=== PATIENT | male | born 1970 | race Caucasian/White ===

== ENCOUNTER 2016-08-01 16:25 | Emergency (ER) | payer BC ==
[~2016-08-01 16:25] MED LIST: ALPR1TAB2 PO; GABA-586 PO; GLIM2TAB2 PO; HYDR-2672 PO; LISI10TA2 PO; MELO-150 PO; METF500T4 PO; OMEP40CA5 PO; ONDA4TAB10 SL; OXYC-323 PO; TAPE75TA2 PO
[2016-08-01 16:42] VITALS: BP 144/105
[2016-08-01] MEDS ORDERED: HYDROCODONE/APAP 10/325 TABLET. PO ONE (17:00)
--- NOTE | 2016-08-01 17:51 | PHYS DOC ---
Past Medical History Past Medical History: Diabetes-Type II, Hypertension, [place] Past Surgical History: Other Additional Past Surgical Histo: RIGHT SHOULDER,CARDIAC CATH Alcohol Use: None Drug Use: None Adult General Chief Complaint Chief Complaint: ANKLE PROBLEM HPI HPI Patient is a 45 year old male who presents with right-sided pain after fall at 1300 today. He reports that he was taking down his [place] lights when he slipped on some water on the ground and fell. He was not on the roof or on a ladder, but standing on the ground when he fell. He landed on his right side. He denies hitting his head or loss of consciousness. He complains of pain in the right ankle, knee, elbow, and shoulder. He has had 2 surgeries on the right rotator cuff in the last 5 months. He was ambulatory just after the fall, but states that he is getting more sore as time progresses. He denies weakness or numbness. He does not have pain in the neck or back. His PCP is Dr. Keiko Diaz. Dr. Barrera is his orthopedic doctor. Review of Systems Review of Systems Constitutional: Denies fever or chills. [] Eyes: Denies change in visual acuity, redness, or eye pain. [] Respiratory: Denies cough or shortness of breath. [] Cardiovascular: Denies chest pain, palpitations or edema. [] GI: Denies abdominal pain, nausea, vomiting, bloody stools or diarrhea. [] : Denies dysuria, hematuria or urinary frequency. [] Musculoskeletal: Denies back pain or neck pain. Reports right ankle, right knee , right elbow, and right shoulder pain. Integument: Denies rash or skin lesions. Reports right elbow abrasion. Neurologic: Denies headache, focal weakness or sensory changes. Denies loss of consciousness. All systems reviewed and negative unless otherwise stated in the HPI. Current Medications Current Medications Current Medications Medications (Trade) Dose Ordered Sig/Darrius Start Time Stop Time Status Last Admin Dose Admin Acetaminophen/ Hydrocodone Bitart (Lortab 10/325) 1 tab 1X ONCE 08/01/16 17:00 08/01/16 17:04 DC 08/01/16 17:42 1 TAB Allergies Allergies Allergies Coded Allergies Type Severity Reaction Last Updated Verified acetaminophen Allergy Intermediate Rash 03/18/16 Yes oxycodone Allergy Intermediate Rash 03/18/16 Yes Physical Exam Physical Exam Constitutional: Well developed, well nourished, no acute distress, non-toxic appearance. [] HENT: Normocephalic, atraumatic, oropharynx moist. [] Eyes: PERRLA, EOMI, conjunctiva normal, no discharge. [] Neck: Normal range of motion, no midline tenderness, supple, no stridor. [] Cardiovascular: Heart rate regular rhythm, no murmur. [] Lungs & Thorax: Bilateral breath sounds clear to auscultation without wheezes, rales, or rhonchi. [] Skin: Warm, dry, no erythema, no rash. Right elbow abrasion. There are no other external signs of injury. Back: No midline tenderness, no CVA tenderness. [] Extremities: Right medial and lateral malleolus tenderness, ROM decreased due to pain, mild edema. 2+ DP and PT pulses. Less than 2 second capillary refill in the toes distally. Light touch sensation intact in the toes distally. There is no tenderness over the proximal fibula or the base of the fifth metatarsal. Extremities 2: Right knee medial and lateral tenderness, full extension with slightly decreased flexion, no edema. Neurovascularly intact distally. Extremities 3: Right olecranon tenderness, ROM intact, no edema. 2+ radial and ulnar pulses. Less than 2 second capillary refill in the fingers distally. Light touch sensation intact in the fingers distally. Abrasion over the olecranon. Extremities 4: Right shoulder tenderness, decreased abduction, no edema. Neurovascularly intact distally. Neurologic: Alert and oriented X 3, normal motor function, normal sensory function, no focal deficits noted. [] Psychologic: Affect normal, judgement normal, mood normal. [] Current Patient Data Vital Signs Vital Signs Date Time Temp Pulse Resp B/P Pulse Ox O2 Delivery O2 Flow Rate FiO2 08/01/16 16:42 98.6 115 22 95 Room Air 98.6 EKG EKG [] Radiology/Procedures Radiology/Procedures X-rays of the right shoulder, right elbow, and right knee reviewed and interpreted by myself with Dr. Lorenz. There are no acute fractures or dislocations. Three-view x-ray of the right ankle reviewed and interpreted by myself with Dr. Lorenz. There is a fracture of the distal fibula without significant displacement. Course & Med Decision Making Course & Med Decision Making Pertinent Labs and Imaging studies reviewed. (See chart for details) Patient presents after fall with right-sided pain. On exam, he is neurovascularly intact in all extremities without evidence of compartment syndrome. X-rays reveal fracture of the right distal fibula, otherwise normal. An Ortho-Glass stirrup splint was applied by meter/relay technician. He remains neurovascularly intact without evidence of compartment syndrome after splint application. He was provided with crutches for since with ambulation. He is given prescription for [place] upon discharge. He is instructed to follow-up with his orthopedic doctor, Dr. Barrera. Return precautions were discussed. He verbalizes understanding and agrees with plan. Dragon Disclaimer Dragon Disclaimer This electronic medical record was generated, in whole or in part, using a voice recognition dictation system. Departure Departure Impression: Primary Impression: Fibula fracture Disposition: 01 HOME, SELF-CARE Condition: STABLE Referrals: KEIKO DIAZ MD (PCP) ISAAC BARRERA II, MD Patient Instructions: Ankle Fracture, [id number], Crutch Use, [id number], Splint Care, [id number] Additional Instructions: The xray of your right ankle shows a break in the fibula bone. The other xrays were normal. You have been placed in a splint to immobilize your foot and ankle. Please keep the splint on and dry until follow up with your orthopedic doctor. Please use the provided crutches to keep weight off of the right leg. Please call your orthopedic doctor to schedule a follow up appointment. Please take the prescribed pain medication as directed. Do not drive or operate heavy machinery while taking pain medication. Return to the emergency department if you have severe pain, numbness in the toes or cold toes, or other new or concerning symptoms. Scripts Hydrocodone/Apap 10-325 ([place] 10-325 Tablet)1 Each Tablet1 Tab PO PRN Q6HRS PRN PAIN #20 TAB Ref 0 Prov:LAYTON LOOMIS 08/01/16 Problem Qualifiers Primary Impression: Fibula fracture Encounter type: initial encounter Fibula location: distal Fracture type: closed Fracture morphology: unspecified fracture morphology Laterality: right Qualified Code: S82.831A - Other fracture of upper and lower end of right fibula, initial encounter for closed fracture LAYTON LOOMIS Aug 01, 2016 17:51
[2016-08-01] MEDS ORDERED: HYDR-963 PO (18:48)
--- NOTE | 2016-08-02 08:43 | RAD ---
Right knee, 3 views, 08/01/2016: History: Fall, pain No fracture or dislocation is identified. The periarticular soft tissues are unremarkable. IMPRESSION: No acute right knee abnormality is detected. Right ankle, 3 views, 08/01/2016: There is an acute oblique fracture of the distal fibula without significant displacement or angulation at the fracture site. No other acute fracture is seen. There are mild degenerative changes at the ankle joint with spurring. There is cortical irregularity along the medial aspect of the articular surface of the talus, probably due to old trauma. There are ossifications involving a portion of the interosseous membrane at the tibiofibular syndesmosis compatible with old trauma. There is moderate soft tissue swelling particularly over the lateral malleolus. IMPRESSION: 1. Acute nondisplaced fracture of the distal fibula. 2. Cortical irregularity along the articular surface of the talus compatible with old trauma with secondary degenerative change at the ankle joint.
--- NOTE | 2016-08-02 08:44 | RAD ---
Right shoulder, 3 views, 08/01/2016: History: Fall, pain No acute fracture or dislocation is identified. There are sclerotic change at the greater tuberosity level compatible with degenerative change at rotator cuff insertion sites. The periarticular soft tissues are unremarkable. IMPRESSION: No acute bony abnormality is detected.
--- NOTE | 2016-08-02 08:46 | RAD ---
Right elbow, 3 views, 08/01/2016: History: Fall, pain No acute fracture or dislocation is identified. There is no radiographic evidence of a joint effusion. IMPRESSION: No acute right elbow abnormality is detected.
== END 2016-08-01 18:59 | disposition home or self-care (01) ==
LOC: ER 16:25
DX: S82.831A Other fracture of upper and lower end of right fibula, initial encounter for closed fracture (principal); E11.9 Type 2 diabetes mellitus without complications; I10 Essential (primary) hypertension; I25.2 Old myocardial infarction; Z88.5 Allergy status to narcotic agent; Z88.6 Allergy status to analgesic agent; W01.0XXA Fall on same level from slipping, tripping and stumbling without subsequent striking against object, initial encounter; Y93.89 Activity, other specified; Y92.89 Other specified places as the place of occurrence of the external cause; Y99.8 Other external cause status
CPT/HCPCS: 29515; 73030; 73080; 73562; 73610; 99284-25

== ENCOUNTER 2016-08-24 13:40 | Inpatient (IN) | payer BC ==
[~2016-08-24 13:40] MED LIST changes: +HYDR-963 PO
[2016-08-24] MEDS ORDERED: NITROGLYCERIN SUBLINGUAL 0.4 MG BOTTLE OF 25. SL PRN (14:00)
[2016-08-24] MEDS ORDERED: OXCARBAZEPINE 300 MG TABLET. PO STA (14:13)
[2016-08-24] MEDS ORDERED: IOHEXOL 300 MG/ML 75 ML VIAL IV ONE (14:15)
[2016-08-24] MEDS ORDERED: IV NORMAL SALINE 1000ML BAG 1,000 ML IV SCH (14:15)
[2016-08-24] MEDS ORDERED: CONTRAST GIVEN MC PRN (14:15)
[2016-08-24] MEDS ORDERED: ONDANSETRON PF 4 MG/2 ML VIAL. IV ONE (14:15)
[2016-08-24] MEDS ORDERED: ASPIRIN 81 MG TAB.CHEW PO ONE (14:15)
[2016-08-24 14:25] LABS: BASO # 0.1 x10^3/uL (0.0-0.2); BASO % 1 % (0-3); EOS % 2 % (0-3); HEMATOCRIT 44.8 % (39.0-53.0); HEMOGLOBIN 15.2 g/dL (13.0-17.5); LYMPH # 2.5 x10^3/uL (1.0-4.8); LYMPH % 33 % (24-48); MEAN CORPUSCULAR HEMOGLOBIN 31 pg (25-35); MEAN CORPUSCULAR HGB CONC 34 g/dL (31-37); MEAN CORPUSCULAR VOLUME 92 fL (79-100); MONO % 11 % (0-9); NEUT % 53 % (31-73); PLATELET COUNT 299 x10^3/uL (140-400); RED CELL DISTRIBUTION WIDTH 13.5 % (11.5-14.5); WHITE BLOOD COUNT 7.6 x10^3/uL (4.0-11.0)
[2016-08-24 14:38] LABS: ANION GAP 13 (6-14); BLOOD UREA NITROGEN 10 mg/dL (8-26); CALCIUM 8.9 mg/dL (8.5-10.1); CARBON DIOXIDE 26 mmol/L (21-32); CHLORIDE 99 mmol/L (98-107); CREATININE 0.9 mg/dL (0.7-1.3); GFR 90.4; GLUCOSE 168 mg/dL (70-99); POTASSIUM 4.4 mmol/L (3.5-5.1); SODIUM 138 mmol/L (136-145)
[2016-08-24 14:44] LABS: ALBUMIN 3.3 g/dL (3.4-5.0); ALK PHOS 103 U/L (46-116); ALT (SGPT) 45 U/L (16-63); AST (SGOT) 34 U/L (15-37); DIRECT BILIRUBIN < 0.1 mg/dL (0.0-0.2); MAGNESIUM 1.9 mg/dL (1.8-2.4); TOTAL BILIRUBIN 0.3 mg/dL (0.2-1.0); TOTAL PROTEIN 7.1 g/dL (6.4-8.2)
--- NOTE | 2016-08-24 14:44 | RAD ---
INDICATION: chest pain COMPARISON: None. FINDINGS: Single view of chest obtained. No focal airspace consolidation. Mediastinal contour is prominent in size No gross osseous destructive lesion. IMPRESSION: No focal airspace consolidation or edema. Cardiac silhouette mildly prominent
[2016-08-24 14:50] LABS: CKMB INDEX 1.3 % (0-4); CKMB MASS 0.9 ng/mL (0.0-3.6)
--- NOTE | 2016-08-24 14:51 | EKG ---
[facility] [address] [place] [address] Test Date: 2016-08-24 Test Time: 13:53:56 Pat Name: ANABEL VALDIVIA Department: Room: Gender: M Status Controller: : 1970 Requested By: QEUTA VANN Order Number: [id number] Reading MD: Measurements Intervals Remer Rate: 104 P: 47 VT: 96 QRS: -37 QRSD: 94 T: 68 QT: 346 QTc: 455 Interpretive Statements SINUS TACHYCARDIA LEFT ATRIAL ABNORMALITY ABNORMAL LEFT AXIS DEVIATION LEFT ANTERIOR FASCICULAR BLOCK QRS(T) CONTOUR ABNORMALITY CONSIDER ANTEROSEPTAL MYOCARDIAL DAMAGE T ABNORMALITY IN HIGH LATERAL LEADS RI6.01 Unconfirmed report No previous ECG available for comparison
--- NOTE | 2016-08-24 14:54 | PHYS DOC ---
Past Medical History Past Medical History: Diabetes-Type II, High Cholesterol, Hypertension, [place] Additional Past Medical Histor: PE Past Surgical History: Other Additional Past Surgical Histo: RIGHT SHOULDER,CARDIAC CATH Alcohol Use: None Drug Use: None Adult General Chief Complaint Chief Complaint: CHEST PAIN HPI HPI Patient is a 45 year old male who presents with chest pain and shortness of breath. Patient states that he has had symptoms are mainly over the past 2 weeks. The patient was at his primary physician's office when he started having worsening symptoms. Patient states that he is having substernal pain with associated shortness of breath and diaphoresis. The patient was sent to the emergency department for evaluation by Dr. Diaz. Patient states that his pain is mild persistent at this time. Patient states that he has had history of pulmonary embolism and was on Coumadin therapy several years ago. Patient states that approximately 2 years ago he was seen at [facility] and had a stress test and normal cardiac catheterization at that time. Patient has history of hypertension, diabetes mellitus type 2, and history of tobacco use. Patient also admits a family history of myocardial infarction. Patient has not had any fevers or cough associated with his symptoms. Patient had recent injury of right ankle secondary to a syncopal episode. Patient is currently in a walking boot. Review of Systems Review of Systems Constitutional: Diaphoresis, Denies fever or chills [] Eyes: Denies change in visual acuity, redness, or eye pain [] HENT: Denies nasal congestion or sore throat [] Respiratory: Shortness of breath [] Cardiovascular: Chest pain [] GI: Denies abdominal pain, nausea, vomiting, bloody stools or diarrhea [] : Denies dysuria or hematuria [] Musculoskeletal: Denies back pain or joint pain [] Integument: Denies rash or skin lesions [] Neurologic: Denies headache, focal weakness or sensory changes [] Current Medications Current Medications Current Medications Medications (Trade) Dose Ordered Sig/Darrius Start Time Stop Time Status Last Admin Dose Admin Aspirin (Children'S Aspirin) 324 mg 1X ONCE 08/24/16 14:15 08/24/16 14:16 DC 08/24/16 14:28 324 MG Fentanyl Citrate 50 mcg 50 mcg PRN Q15MIN PRN 08/24/16 14:00 08/24/16 17:21 DC 08/24/16 15:47 50 MCG Info (Do NOT chart on this entry -- for MONITORING) 1 each PRN DAILY PRN 08/24/16 14:15 08/25/16 14:49 DC Iohexol (Omnipaque 300 Mg/ml) 75 ml 1X ONCE 08/24/16 14:15 08/24/16 14:16 DC 08/24/16 14:52 75 ML Nitroglycerin (Nitrostat) 0.4 mg PRN Q5MIN PRN 08/24/16 14:00 08/25/16 13:59 DC Ondansetron HCl (Zofran) 4 mg 1X ONCE 08/24/16 14:15 08/24/16 14:16 DC 08/24/16 14:29 4 MG Oxcarbazepine (Trileptal) 450 mg 1X STAT 08/24/16 14:13 08/24/16 14:18 DC Sodium Chloride (Iv Sodium Chloride 0.9% 1000ml Bag) 1,000 ml @ 1,000 mls/hr Q1H 08/24/16 14:15 08/24/16 15:14 DC 08/24/16 14:31 1,000 MLS/HR Allergies Allergies Allergies Coded Allergies Type Severity Reaction Last Updated Verified oxycodone Allergy Intermediate Rash 03/18/16 Yes Physical Exam Physical Exam Constitutional: Alert, obese, afebrile, appears in mild discomfort. [] HENT: Normocephalic, atraumatic, bilateral external ears normal, oropharynx moist, no oral exudates, nose normal. [] Eyes: PERRLA, EOMI, conjunctiva normal, no discharge. [] Neck: Normal range of motion, no tenderness, supple, no stridor. [] Cardiovascular: Tachycardia, regular rhythm no murmur [] Lungs & Thorax: Bilateral breath sounds clear to auscultation [] Abdomen: Bowel sounds normal, soft, no tenderness, no masses, no pulsatile masses. [] Skin: Warm, dry, no erythema, no rash. [] Back: No tenderness, no CVA tenderness. [] Extremities: Walking boot on right lower extremity, no cyanosis, no edema, pulses 2+. [] Neurologic: Alert and oriented X 3, normal motor function, normal sensory function, no focal deficits noted. [] Current Patient Data Vital Signs Vital Signs Date Time Temp Pulse Resp B/P Pulse Ox O2 Delivery O2 Flow Rate FiO2 08/24/16 15:07 90 18 139/75 95 Room Air 08/24/16 13:49 97.5 97.5 Lab Values Laboratory Tests Test 08/24/16 14:13 White Blood Count 7.6x10^3/uL (4.0-11.0) Red Blood Count 4.90x10^6/uL (4.30-5.70) Hemoglobin 15.2g/dL (13.0-17.5) Hematocrit 44.8% (39.0-53.0) Mean Corpuscular Volume 92fL (79-100) Mean Corpuscular Hemoglobin 31pg (25-35) Mean Corpuscular Hemoglobin Concent 34g/dL (31-37) Red Cell Distribution Width 13.5% (11.5-14.5) Platelet Count 299x10^3/uL (140-400) Neutrophils (%) (Auto) 53% (31-73) Lymphocytes (%) (Auto) 33% (24-48) Monocytes (%) (Auto) 11% (0-9) H Eosinophils (%) (Auto) 2% (0-3) Basophils (%) (Auto) 1% (0-3) Neutrophils # (Auto) 4.1x10^3uL (1.8-7.7) Lymphocytes # (Auto) 2.5x10^3/uL (1.0-4.8) Monocytes # (Auto) 0.9x10^3/uL (0.0-1.1) Eosinophils # (Auto) 0.1x10^3/uL (0.0-0.7) Basophils # (Auto) 0.1x10^3/uL (0.0-0.2) D-Dimer (Annmarie) 0.35ug/mlFEU (0.00-0.50) Sodium Level 138mmol/L (136-145) Potassium Level 4.4mmol/L (3.5-5.1) Chloride Level 99mmol/L (98-107) Carbon Dioxide Level 26mmol/L (21-32) Anion Gap 13 (6-14) Blood Urea Nitrogen 10mg/dL (8-26) Creatinine 0.9mg/dL (0.7-1.3) Estimated GFR (Cockcroft-Gault) 90.4 Glucose Level 168mg/dL (70-99) H Calcium Level 8.9mg/dL (8.5-10.1) Magnesium Level 1.9mg/dL (1.8-2.4) Total Bilirubin 0.3mg/dL (0.2-1.0) Direct Bilirubin < 0.1mg/dL (0.0-0.2) Aspartate Amino Transferase (AST) 34U/L (15-37) Alanine Aminotransferase (ALT) 45U/L (16-63) Alkaline Phosphatase 103U/L (46-116) Creatine Kinase 67U/L (39-308) Creatine Kinase MB (Mass) 0.9ng/mL (0.0-3.6) Creatine Kinase MB Relative Index 1.3% (0-4) Troponin I Quantitative < 0.017ng/mL (0.000-0.055) NV-Ups-A-Type Natriuretic Peptide 52pg/mL (0-124) Total Protein 7.1g/dL (6.4-8.2) Albumin 3.3g/dL (3.4-5.0) L Laboratory Tests 08/24/16 14:13 Laboratory Tests 08/24/16 14:13 EKG EKG Interpreted by me: Heart rate 104, sinus tachycardia, normal intervals, leftward axis, no acute ST/T-wave abnormalities present [] Radiology/Procedures Radiology/Procedures [facility] [address] [place] [address] IMAGING REPORT Signed PATIENT: ANABEL VALDIVIA ACCOUNT: [id number] : 1970 LOCATION: ER AGE: 45 SEX: M EXAM STATUS: REG ER ORD. PHYSICIAN: QUETA VANN MD REASON: chest pain, shortness breath, history of PE PROCEDURE: CTA CHEST CTA of the chest with contrast, 08/24/2016: History: Chest pain, shortness of breath Multidetector CT imaging was performed following an IV bolus injection of iodinated contrast material. Multiplanar reconstructions were produced including coronal MIP images. No filling defects are seen in the main pulmonary arteries or lobar branches to suggest pulmonary emboli. The smaller pulmonary arteries are less well delineated due to technical factors including the patient's size, however, no definite pulmonary emboli are appreciated. The thoracic aorta is of normal caliber. Several minimal coronary artery calcifications are noted. There are calcified mediastinal and right hilar lymph nodes compatible with old granulomatous disease. No mediastinal or hilar adenopathy is evident. There is a cluster of granulomatous calcifications in the right parahilar region. There are a few scattered linear parenchymal scars. No significant pulmonary consolidation or mass is seen. There is no evidence of pleural fluid. IMPRESSION: No CT evidence of central pulmonary emboli. DICTATED and SIGNED BY: TAI PRICE MD DATE: 08/24/16 1542 CC: QUETA VANN MD; KEIKO DIAZ MD ~ [facility] [address] [place] [address] IMAGING REPORT Signed PATIENT: ANABEL VALDIVIA ACCOUNT: [id number] : 1970 LOCATION: ER AGE: 45 SEX: M EXAM STATUS: PRE ER ORD. PHYSICIAN: QUETA VANN MD REASON: chest pain PROCEDURE: PORTABLE CHEST 1V INDICATION: chest pain COMPARISON: None. FINDINGS: Single view of chest obtained. No focal airspace consolidation. Mediastinal contour is prominent in size No gross osseous destructive lesion. IMPRESSION: No focal airspace consolidation or edema. Cardiac silhouette mildly prominent DICTATED and SIGNED BY: HUGO DIAZ MD DATE: 08/24/16 1440 CC: QUETA VANN MD; KEIKO DIAZ MD ~ [] Course & Med Decision Making Course & Med Decision Making Pertinent Labs and Imaging studies reviewed. (See chart for details) Patient started on IV fluids, nitroglycerin, fentanyl, and Zofran. On reevaluation, patient's symptoms have improved at this time. The patient does not show evidence of ischemia, however I am suspicious that the patient's symptoms could be due to cardiac dysrhythmia as patient has had a syncopal episode with injury to weeks ago and has had intermittent episodes since this time. The patient will need admission to the hospital for continued monitoring. Patient admitted to Dr. Diaz. Amber Disclaimer Amber Disclaimer This electronic medical record was generated, in whole or in part, using a voice recognition dictation system. Departure Departure Impression: Primary Impression: Chest pain Additional Impression: Syncope Disposition: 09 ADMITTED INPATIENT Admitting Physician: Keiko Diaz Condition: STABLE Referrals: KEIKO DIAZ MD (PCP) Problem Qualifiers Primary Impression: Chest pain Chest pain type: unspecified Qualified Code: R07.9 - Chest pain, unspecified Additional Impression: Syncope Syncope type: unspecified Qualified Code: R55 - Syncope and collapse QUETA VANN MD Aug 24, 2016 14:54
[2016-08-24] MEDS: FENTANYL PF 100 MCG/2 ML VIAL. IV PRN ×2 (15:06→15:47)
[2016-08-24] MEDS ORDERED: ONDANSETRON PF 4 MG/2 ML VIAL. IV PRN (15:30)
[2016-08-24] MEDS ORDERED: FENTANYL PF 100 MCG/2 ML VIAL. IV PRN (15:30)
--- NOTE | 2016-08-24 15:50 | RAD ---
CTA of the chest with contrast, 08/24/2016: History: Chest pain, shortness of breath Multidetector CT imaging was performed following an IV bolus injection of iodinated contrast material. Multiplanar reconstructions were produced including coronal MIP images. No filling defects are seen in the main pulmonary arteries or lobar branches to suggest pulmonary emboli. The smaller pulmonary arteries are less well delineated due to technical factors including the patient's size, however, no definite pulmonary emboli are appreciated. The thoracic aorta is of normal caliber. Several minimal coronary artery calcifications are noted. There are calcified mediastinal and right hilar lymph nodes compatible with old granulomatous disease. No mediastinal or hilar adenopathy is evident. There is a cluster of granulomatous calcifications in the right parahilar region. There are a few scattered linear parenchymal scars. No significant pulmonary consolidation or mass is seen. There is no evidence of pleural fluid. IMPRESSION: No CT evidence of central pulmonary emboli.
[2016-08-24] MEDS: HYDROCODONE/APAP 10/325 TABLET. PO PRN (17:35)
--- NOTE | 2016-08-24 18:21 | ACF ---
Admission Forms Criteria CARDIOLOGY GRG Clinical Indications for Admission to Inpatient Care ( Place 'X' for any and all applicable criteria): Hospital admission is needed for appropriate care of the patient because of ANY ONE of the following (1): [ ] I. Hemodynamic instability as indicated by ALL of the following (1)(2)(3) (4)(5) [ ]a) Vital signs or other findings not as expected for chronic patient condition or baseline [ ]b) Instability indicated by ANY ONE of the following: [ ]i) Hypotension [ ]ii) Symptomatic Tachycardia unresponsive to treatment ( e.g., analgesia, fluids, sedation as indicated) [ ]iii) Inadequate perfusion indicated by ANY ONE of the following: [ ] 1) Lactic acidosis (> 2 mmol/L) [ ] 2) New abnormal capillary refill (> 3 seconds) [ ] 3) Reduced urine output [ ] 4) New altered mental status [ ]iv) Orthostatic vital sign changes unresponsive to treatment (e.g., fluids) [ ]v) IV inotropic or vasopressor medication required to maintain adequate blood pressure or perfusion [ ] II. Severe heart failure as indicated by ANY ONE of the following(17)(18) [ ]a) Respiratory distress [ ]b) Hypotension [ ]c) Anasarca (refractory to outpatient therapy) [ ]d) Cardiac arrhythmias of immediate concern [ ]e) Myocardial ischemia [ ] III. Cardiac arrhythmias or findings of immediate concern indicated by ANY ONE of the following (19)(20): [ ] a) Heart rhythms that are inherently dangerous or unstable indicated by ANY ONE of the following (21)(22)(23): [ ] i) Resuscitated ventricular fibrillation or cardiac arrest [ ] ii) Ventricular escape rhythm [ ] iii) Sustained ventricular tachycardia (30 seconds or more of ventricular rhythm at greater than 100 beats per minute) [ ] iv) Nonsustained ventricular tachycardia and ANY ONE of the following: [ ] 1) Suspected cardiac ischemia as cause or consequence of ventricular tachycardia [ ] 2) In setting of acute myocarditis [ ] b) Unstable cardiac conduction defects indicated by ANY ONE of the following(23)(24)(25) [ ] i) Type II second-degree atrioventricular block [ ]ii) Third-degree atrioventricular block [ ]iii) New-onset left bundle branch block with suspected myocardial ischemia [ ]c) Any heart rhythm and ANY ONE of the following (21)(22)(26)(27) (28) [ ] i) Continuous long-term ECG monitoring needed (e.g., initiation of drug requiring monitoring for more than 24 hours) [ ] ii) Patient has automatic implanted cardioverter defibrillator that is repeatedly firing, malfunctioning, or in need of immediate adjustment of settings beyond the scope of ambulatory or observation care [ ]d) Heart rhythms of concern due to ANY ONE of the following: [ ] i) Hypotension [ ] ii) Respiratory distress [ ] iii) Association with other significant symptoms (e.g., bradycardia with syncope or ongoing dizziness, supraventricular tachycardia with chest pain (14)(15)(17) [ ] IV. Monitoring for cardiac contusion beyond the scope of observation care needed [A](30)(31)(32) [ ] V. Surgical or device complication (e.g., valve replacement complication , pacemaker dysfunction) (35)(41)(44)(45)(46) [ ] . Inpatient palliative care needed. [B](49) Also use Inpatient Palliative Care Criteria [ ] VII. Nonbacterial thrombotic (marantic) endocarditis (36)(43)(47)(48) [X] VIII. Cardiology condition, symptom, or finding for which emergency and observation care has failed or are not considered appropriate. [ ] IX. Acute valvular disease requiring inpatient as indicated by ANY ONE of the following (41) [ ]a) Acute valvular regurgitation (42) [ ]b) Noninfectious valvulitis (43) [ ]c) Obstructive valve thrombosis [ ]d) Paravalvular leak [ ]e) Other significant valvular disorder remaining after emergency or observation level of care (as appropriate) [ ]X. Pericardial disease requiring inpatient treatment as indicated by ANY ONE of the following (33)(34)(35)(36)(37) [ ]a) Suspected tamponade (38)(39)(40) [ ]b) Hemopericardium [ ]c) Other significant pericardial disorder remaining after emergency or observation level of care (as appropriate) [ ] XI. Cardiac ischemia beyond scope of emergency and observation care. [ ] XII. Hypertension requiring inpatient treatment as indicated by ANY ONE of the following (6)(7)(8) [ ]a) SBP greater than 220 mm Hg or DBP greater than 120 mmHg despite treatment [ ]b) SBP greater than 140 mm Hg or DBP greater than 100 mm Hg with evidence of acute end organ damage as indicated by ANY ONE of the following [ ] i) Encephalopathy [ ] ii) Acute renal failure as indicated by new onset of ANY ONE of the following (9)(10)(11)(12)(13) [ ]1) 3-fold rise in serum creatinine from baseline [ ]2) Serum creatinine greater than 4 mg/dL ( 354 micromoles/L) with acute rise greater than 0.5 mg/dL (44.2 micromoles/L) [ ]3) Reduction of more than 75% in estimated glomerular filtration rate from baseline [ ]4) Estimated glomerular filtration rate less than 35 mL/min/1.73m2 (0.59 mL/sec/1.73m2) in child up to 18 years of age [ ]5) Cessation of urine output indicated by ALL of the following [ ]A. Adequate volume status [ ]B. Inadequate urine output as indicated by ANY ONE of the following [ ]a. Urine output less than 0.3 mL/kg/hr for 24 hours [ ]b. Anuria (urine output less than 0.1 mL/kg/hr) for 12 hours [ ] iii) Aortic dissection [ ] iv) Myocardial Ischemia [ ] v) Left ventricular heart failure [ ]vi) Retinal Hemorrhage [ ]vii) Other significant finding [ ]c) Hypertension in child requiring inpatient treatment as indicated by ALL of the following(14)(15)(16) [ ] i) Outpatient treatment not effective, not available, or not appropriate [ ]ii) SBP or DBP greater than 95th percentile for age [ ]iii) Evidence of acute end organ damage as indicated by ANY ONE of the following [ ]1) Altered mental status [ ]2) Acute renal failure as indicated by new onset of ANY ONE of the following(9)(10)(11)(12)(13) [ ]A. 3-fold rise in serum creatinine from baseline [ ]B. Serum creatinine greater than 4 mg/dL (354 micromoles/L) with acute rise greater than 0.5 mg/dL (44.2 micromoles/L) [ ]C. Reduction of more than 75% in estimated glomerular filtration rate from baseline [ ]D. Estimated glomerular filtration rate less than 35 mL/min/1.73m2 (0.59 mL/sec/1.73m2) in child up to 18 years of age [ ]E. Cessation of urine output indicated by ALL of the following [ ]a. Adequate volume status [ ]b. Inadequate urine output as indicated by ANY ONE of the following [ ]i) Urine output less than 0.3 mL/kg/hr for 24 hours [ ]ii) Anuria ( urine output less than 0.1 mL/kg/hr) for 12 hours [ ]3) Severe headache [ ]4) Visual disturbance [ ]5) Retinal hemorrhage [ ]6) Other significant finding [ ]XIII. Complications of transplanted heart indicated by ANY ONE of the following(61): [ ]a) Acute graft rejection requiring inpatient management (eg, intravenous immunosuppression)(62)(63) [ ]b) Acute graft heart failure indicated by ANY ONE of the following(64): [ ]i) Hemodynamic instability [ ]ii) Cardiac arrhythmias of immediate concern [ ]iii) Pulmonary edema that is very severe (eg, mechanical ventilation needed, imminent or likely, need for 100% oxygen to keep oxygen saturation above 90%) [ ]iv) Pulmonary edema that is persistent as indicated by ALL of the following: [ ]1) New need for oxygen therapy to keep oxygen saturation above 90% (or increased FiO2 need from baseline) [ ]2) Has not improved sufficiently with emergency department or observation care IV diuretics or other heart failure treatments[E] [ ]v) Altered mental status that is severe or persistent [ ]vi) Increased creatinine (new on laboratory test) with reduction of more than 50% in estimated glomerular filtration rate from baseline [ ]vii) Progressively (ongoing) rising creatinine (known from past laboratory test) with reduction of more than 25% in estimated glomerular filtration rate from baseline [ ]viii) Acute renal failure [ ]ix) Acute peripheral ischemia (eg, examination shows pulseless, cool, mottled, or cyanotic extremity) [ ]x) Pulmonary artery catheter monitoring needed [ ]xi) Other sign or symptom of heart failure requiring inpatient treatment (ie, too severe or not responsive to outpatient and observation care treatment) [ ]c) Infection requiring inpatient management (eg, Hemodynamic instability, need for intravenous antimicrobial treatment)(66)(67)(68)(69)(70) [ ]d) Cardiac allograft vasculopathy requiring inpatient management ( eg evidence of cardiac ischemia)(71) [ ]e) Other complication of transplanted heart (eg, stroke, severe pulmonary hypertension, severe valvular dysfunction) requiring inpatient management(72) The original [facility] content created by [facility] has been revised. The portions of the content which have been revised are identified through the use of italic text or in bold, and [facility] has neither reviewed nor approved the modified material. All other unmodified content is copyright [facility]. Please see references footnoted in the original [facility] edition 2016 Admission Criteria Met?: Yes KONG NARANJO Aug 24, 2016 18:21
[2016-08-24] MEDS ORDERED: GABA600T2 PO (20:33)
[2016-08-24] MEDS ORDERED: LIRA0.6P2 SQ (20:33)
[2016-08-24] MEDS ORDERED: GLIM4TAB2 PO (20:33)
[2016-08-24] MEDS ORDERED: LIRAGLUTIDE 18 MG/3 ML SQ SCH (21:00)
[2016-08-24] MEDS: IV NORMAL SALINE 1000ML BAG 1,000 ML IV SCH ×2 (21:31→23:45)
[2016-08-24] MEDS: METFORMIN 500 MG TABLET. PO SCH (21:32)
[2016-08-24] MEDS: GABAPENTIN 300 MG CAPSULE. PO SCH (21:32)
[2016-08-24 23:45] VITALS: BP 96/48
[2016-08-25] MEDS: HYDROCODONE/APAP 10/325 TABLET. PO PRN ×2 (00:16→11:16)
[2016-08-25 03:00] VITALS: BP 112/65
[2016-08-25 05:50] LABS: BASO % 1 % (0-3); EOS % 4 % (0-3); HEMATOCRIT 42.1 % (39.0-53.0); HEMOGLOBIN 14.3 g/dL (13.0-17.5); LYMPH # 2.1 x10^3/uL (1.0-4.8); LYMPH % 31 % (24-48); MEAN CORPUSCULAR HEMOGLOBIN 31 pg (25-35); MEAN CORPUSCULAR HGB CONC 34 g/dL (31-37); MEAN CORPUSCULAR VOLUME 91 fL (79-100); MONO % 10 % (0-9); NEUT % 55 % (31-73); PLATELET COUNT 255 x10^3/uL (140-400); RED BLOOD COUNT 4.63 x10^6/uL (4.30-5.70); RED CELL DISTRIBUTION WIDTH 14.2 % (11.5-14.5); WHITE BLOOD COUNT 6.8 x10^3/uL (4.0-11.0)
[2016-08-25 05:59] LABS: CALCIUM 8.4 mg/dL (8.5-10.1); CREATININE 0.9 mg/dL (0.7-1.3); GFR 90.4; POTASSIUM 3.8 mmol/L (3.5-5.1)
[2016-08-25] MEDS: GABAPENTIN 300 MG CAPSULE. PO SCH ×2 (06:06→13:00)
[2016-08-25] MEDS: IV NORMAL SALINE 1000ML BAG 1,000 ML IV SCH (06:07)
[2016-08-25 07:00] VITALS: BP 145/102
[2016-08-25] MEDS ORDERED: PANTOPRAZOLE 40 MG TABLET. PO SCH (07:30)
--- NOTE | 2016-08-25 07:57 | PDOC ---
Provider Note Provider Note [id number] KEIKO DIAZ MD Aug 25, 2016 07:57
[2016-08-25] MEDS ORDERED: GLIMEPIRIDE 2 MG TABLET PO SCH (09:00)
[2016-08-25] MEDS ORDERED: LISINOPRIL 10 MG TABLET PO SCH (09:00)
--- NOTE | 2016-08-25 10:05 | HP ---
ADMIT DATE: CHIEF COMPLAINT: Exertional chest pain. HISTORY OF PRESENT ILLNESS: A 45-year-old white male with known morbid obesity, chronic opioid use for orthopedic problems and then poorly controlled type 2 diabetes mellitus, who was seen in the office on the day of admission with 2-week history of what sounds like, exertional chest pain. It was described as "sharp", but it come on with activity be relieved by rest. He had 1 episode of unexplained syncope recently and states "broke his legs." Previous cardiac history reveals he had a cardiac catheterization done at [facility] 3 years ago, which was reportedly normal. EKGs in the office and in the ER showed only left anterior hemiblock and no acute changes. He had no further pain since he has been admitted. PAST MEDICAL HISTORY: Sees Dr. Fonseca for chronic orthopedic problems and takes very high dose of hydrocodone. He was started on Victoza in our office about a month ago for poorly controlled diabetes, A1c was 11.5 at that time. Takes metformin and glimepiride as well and lisinopril for hypertension and renal protection. ALLERGIES: LISTED TO OXYCODONE. SOCIAL HISTORY: Smoker; single; do not know, if he is employed; nondrinker. FAMILY HISTORY: Unremarkable. REVIEW OF SYSTEMS: No other specific problems. OBJECTIVE: ENT: All within normal limits. NECK: No masses, nodes or bruits. LUNGS: Clear. CARDIOVASCULAR: Regular rate. No chest wall tenderness or murmur or irregular beat. ABDOMEN: Obese, soft and nontender. EXTREMITIES: Excellent pedal and radial pulses. He has 1+ pretibial edema bilaterally. Tender in the right lateral distal fibula consistent with recent fracture. NEUROLOGIC: Physiologic, nonfocal, anxious, oriented x 4, cooperative. ASSESSMENT: 1. Exertional chest pain. Risk factors for coronary artery disease, being poorly controlled diabetes, hypertension, morbid obesity and tobacco use. 2. Poorly controlled diabetes, doing better apparently on Victoza. 3. Chronic opioid use for orthopedic problems. PLAN: Pharmaceutical MPI. KEIKO DIAZ MD DR: MOY/bere JOB#: [id number] / [id number]
[2016-08-25 10:58] VITALS: BP 133/91
[2016-08-25] MEDS: METFORMIN 500 MG TABLET. PO SCH (11:16)
[2016-08-25 11:17] VITALS: BP 133/91
[2016-08-25] MEDS ORDERED: ASPI81TA2 PO (14:02)
--- NOTE | 2016-08-26 00:41 | DS ---
DATE OF DISCHARGE: 08/25/2016 HOSPITAL SUMMARY: Poorly controlled diabetic smoker with high blood pressure came in with exertional chest pain over the last couple of weeks. He had had a normal cardiac catheterization at [facility] about 2 years prior to admission and his physical exam was normal. His A1c as an outpatient had been high at 11.5 and the lab work in the hospital was unremarkable as was EKG, urinalysis, chest x-ray and CT scan of the chest. Pharmaceutical MPI was ordered, but the patient drank Mountain Dew and was unable to do the test and decided that he wanted to leave the hospital and be followed as an outpatient. He understands that the risks of undiagnosed and untreated heart disease is substantial and willing to accept that risk. FINAL DIAGNOSES: 1. Exertional chest pain, etiology undetermined. 2. Poorly controlled type 2 diabetes mellitus. 3. Chronic morbid obesity. 4. Chronic nonmalignant opioid use regarding chronic bone pain. OPERATIONS, PROCEDURES, COMPLICATIONS, AND CONSULTATIONS: None. DISPOSITION: Home meds remain the same, take a low dose aspirin daily. He will follow up in the office to schedule his pharmaceutical MPI and return to the hospital at any time. KEIKO DIAZ MD DR: MOY/bere JOB#: [id number] / [id number]
== END 2016-08-25 14:20 | disposition home or self-care (01) | DRG 313 ==
LOC: ER 13:40 → ED HOLD 15:26 → 6 SOUTH 18:38
PROVIDERS: ADMIT Family Medicine; ATTEND Family Medicine
DX: R07.9 Chest pain, unspecified (principal); E11.9 Type 2 diabetes mellitus without complications; I10 Essential (primary) hypertension; E66.01 Morbid (severe) obesity due to excess calories; E78.00 Pure hypercholesterolemia, unspecified; Z86.711 Personal history of pulmonary embolism; Z87.891 Personal history of nicotine dependence; Z82.49 Family history of ischemic heart disease and other diseases of the circulatory system; I25.2 Old myocardial infarction; Z79.891 Long term (current) use of opiate analgesic; Z79.4 Long term (current) use of insulin; Z88.6 Allergy status to analgesic agent
CPT/HCPCS: 36415; 71010; 71275; 80048; 80076; 82553; 82947; 83735; 83880; 84484; 85027; 85379; 93005; 96361; 96374; 96375; J2405; J3010; J7030; Q9967; 99285-25

== ENCOUNTER 2017-03-18 10:34 | Observation (INO) | payer BC ==
[~2017-03-18] VITALS: Ht 185.4 cm; Wt 149.3 kg
[~2017-03-18 10:34] MED LIST changes: +ASPI-630 PO; +GABA600T2 PO; +GLIM4TAB2 PO; -HYDR-2672 PO; +HYDR-2766 PO; +LIRA0.6P2 SQ; -MELO-150 PO; +MELO15TA23 PO; -TAPE75TA2 PO; +TAPE75TA3 PO
[2017-03-18] MEDS ORDERED: ASPIRIN CHEWABLE 81 MG TABLET. PO ONE (11:00)
[2017-03-18 11:09] LABS: POTASSIUM ISTAT 5.4 mmol/L (3.5-5.0)
[2017-03-18] MEDS ORDERED: IPRATRPIUM/ALBUTEROL 0.5/2.5MG 3 ML NEBU. NEB ONE (11:15)
[2017-03-18] MEDS ORDERED: NITROGLYCERIN SUBLINGUAL 0.4 MG BOTTLE OF 25. SL PRN (11:15)
[2017-03-18] MEDS: MORPHINE SULFATE 2 MG/ML DISP.SYRIN. IV PRN ×4 (11:23→23:50)
--- NOTE | 2017-03-18 11:24 | RAD ---
Indication chest and left arm pain. A single view of the chest was obtained and is compared to an examination 08/24/2016. The heart and pulmonary vessels appear normal. The lungs are clear. There is no pleural fluid or pneumothorax. There has not a significant change in the appearance of the chest compared to the previous exam. IMPRESSION: No acute or focal process is seen in the chest
[2017-03-18 11:28] LABS: BASO # 0.1 x10^3/uL (0.0-0.2); BASO % 1 % (0-3); EOS % 2 % (0-3); HEMATOCRIT 42.6 % (39.0-53.0); HEMOGLOBIN 14.9 g/dL (13.0-17.5); LYMPH % 29 % (24-48); MEAN CORPUSCULAR HEMOGLOBIN 32 pg (25-35); MEAN CORPUSCULAR HGB CONC 35 g/dL (31-37); MEAN CORPUSCULAR VOLUME 91 fL (79-100); MONO % 6 % (0-9); NEUT % 63 % (31-73); PLATELET COUNT 312 x10^3/uL (140-400); RED BLOOD COUNT 4.69 x10^6/uL (4.30-5.70); WHITE BLOOD COUNT 10.4 x10^3/uL (4.0-11.0)
[2017-03-18 11:29] LABS: ANION GAP 9 (6-14); BLOOD UREA NITROGEN 12 mg/dL (8-26); CALCIUM 8.8 mg/dL (8.5-10.1); CARBON DIOXIDE 27 mmol/L (21-32); CHLORIDE 102 mmol/L (98-107); GFR 79.8; GLUCOSE 279 mg/dL (70-99); POTASSIUM 4.3 mmol/L (3.5-5.1); SODIUM 138 mmol/L (136-145)
--- NOTE | 2017-03-18 11:29 | EKG ---
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
[2017-03-18 11:34] LABS: ALBUMIN 3.3 g/dL (3.4-5.0); ALK PHOS 93 U/L (46-116); ALT (SGPT) 24 U/L (16-63); AST (SGOT) 16 U/L (15-37); DIRECT BILIRUBIN < 0.1 mg/dL (0.0-0.2); TOTAL BILIRUBIN 0.3 mg/dL (0.2-1.0); TOTAL PROTEIN 7.3 g/dL (6.4-8.2)
--- NOTE | 2017-03-18 12:04 | PHYS DOC ---
Past Medical History Past Medical History: Diabetes-Type II, High Cholesterol, Hypertension, GA Additional Past Medical Histor: PE Past Surgical History: Other Additional Past Surgical Histo: RIGHT SHOULDER,CARDIAC CATH Alcohol Use: None Drug Use: None Adult General Chief Complaint Chief Complaint: CHEST PAIN HPI HPI 46-year-old male with history of diabetes high cholesterol hypertension. Previous GA in the past presents the emergency department today with chest pain and pressure associated with nausea vomiting and diaphoresis. He also has associated shortness of breath. This started about 2 days ago. It is intermittent worse with walking and without alleviating factors. Review of systems is negative for unilateral leg swelling hemoptysis. He does have history of PE. He denies fevers chills or cough. All other review of systems is negative unless otherwise noted in history of present illness. ED course: 46-year-old male presenting to the emergency department today with chest pain. Patient was mildly hypertensive here in the emergency room. Patient was given aspirin and nitroglycerin and morphine for pain. Initial troponin was negative. Initial EKG reviewed by myself shows sinus rhythm with a regular rate. [place] is leftward. ST segments are congruent. Chest x-ray obtained and reviewed by myself was unremarkable. Blood work shows a negative troponin. Given the patient's significant risk for ACS and her clinical presentation he was admitted for further evaluation workup and care including cardiology consultation. On reexamination the patient his pain and improved significantly with nitroglycerin. Review of Systems Review of Systems SEE ABOVE. Current Medications Current Medications Current Medications Medications (Trade) Dose Ordered Sig/Darrius Start Time Stop Time Status Last Admin Dose Admin Albuterol/ Ipratropium (Duoneb) 3 ml 1X ONCE 03/18/17 11:15 03/18/17 11:16 DC 03/18/17 11:27 3 ML Aspirin (Children'S Aspirin) 324 mg 1X ONCE 03/18/17 11:00 03/18/17 11:01 DC 03/18/17 11:22 324 MG Morphine Sulfate 2 mg PRN Q1HR PRN 03/18/17 11:15 03/18/17 12:15 2 MG Nitroglycerin (Nitrostat) 0.4 mg PRN Q5MIN PRN 03/18/17 11:15 03/18/17 11:21 0.4 MG Allergies Allergies Allergies Coded Allergies Type Severity Reaction Last Updated Verified oxycodone Allergy Intermediate Rash 03/18/16 Yes Physical Exam Physical Exam Constitutional: Well developed, well nourished, patient appears to be in pain. He has mild diaphoresis. HENT: Normocephalic, atraumatic, bilateral external ears normal, oropharynx moist, no oral exudates, nose normal. [] Eyes: PERRLA, EOMI, conjunctiva normal, no discharge. [] Neck: Normal range of motion, no tenderness, supple, no stridor. [] Cardiovascular:Heart rate regular rhythm, no murmur [] Lungs & Thorax: Bilateral breath sounds clear to auscultation [] Abdomen: Bowel sounds normal, soft, no tenderness, no masses, no pulsatile masses. [] Skin: Warm, dry, no erythema, no rash. [] Back: No tenderness, no CVA tenderness. [] Extremities: No tenderness, no cyanosis, no clubbing, ROM intact, no edema. [] Neurologic: Alert and oriented X 3, normal motor function, normal sensory function, no focal deficits noted. [] Psychologic: Affect normal, judgement normal, mood normal. [] Current Patient Data Vital Signs Vital Signs Date Time Temp Pulse Resp B/P (MAP) Pulse Ox O2 Delivery O2 Flow Rate FiO2 03/18/17 11:39 90 116/58 (77) 94 Room Air 03/18/17 11:10 98.1 24 98.1 Lab Values Laboratory Tests Test 03/18/17 10:55 03/18/17 10:56 03/18/17 11:00 White Blood Count 10.4 x10^3/uL (4.0-11.0) Red Blood Count 4.69 x10^6/uL (4.30-5.70) Hemoglobin 14.9 g/dL (13.0-17.5) Hematocrit 42.6 % (39.0-53.0) Mean Corpuscular Volume 91 fL (79-100) Mean Corpuscular Hemoglobin 32 pg (25-35) Mean Corpuscular Hemoglobin Concent 35 g/dL (31-37) Red Cell Distribution Width 14.0 % (11.5-14.5) Platelet Count 312 x10^3/uL (140-400) Neutrophils (%) (Auto) 63 % (31-73) Lymphocytes (%) (Auto) 29 % (24-48) Monocytes (%) (Auto) 6 % (0-9) Eosinophils (%) (Auto) 2 % (0-3) Basophils (%) (Auto) 1 % (0-3) Neutrophils # (Auto) 6.6 x10^3uL (1.8-7.7) Lymphocytes # (Auto) 3.0 x10^3/uL (1.0-4.8) Monocytes # (Auto) 0.6 x10^3/uL (0.0-1.1) Eosinophils # (Auto) 0.2 x10^3/uL (0.0-0.7) Basophils # (Auto) 0.1 x10^3/uL (0.0-0.2) Sodium Level 138 mmol/L (136-145) Potassium Level 4.3 mmol/L (3.5-5.1) Chloride Level 102 mmol/L (98-107) Carbon Dioxide Level 27 mmol/L (21-32) Anion Gap 9 (6-14) 15 mmol/L (6-14) H Blood Urea Nitrogen 12 mg/dL (8-26) Creatinine 1.0 mg/dL (0.7-1.3) Estimated GFR (Cockcroft-Gault) 79.8 Glucose Level 279 mg/dL (70-99) H 276 mg/dL (70-99) H Calcium Level 8.8 mg/dL (8.5-10.1) Total Bilirubin 0.3 mg/dL (0.2-1.0) Direct Bilirubin < 0.1 mg/dL (0.0-0.2) Aspartate Amino Transferase (AST) 16 U/L (15-37) Alanine Aminotransferase (ALT) 24 U/L (16-63) Alkaline Phosphatase 93 U/L (46-116) Troponin I Quantitative < 0.017 ng/mL (0.000-0.055) LV-Jkh-G-Type Natriuretic Peptide 36 pg/mL (0-124) Total Protein 7.3 g/dL (6.4-8.2) Albumin 3.3 g/dL (3.4-5.0) L Lipase 226 U/L (73-393) POC Troponin I 0.00 ng/ml (<0.08) POC Hemoglobin 15.6 g/dL (14-18) POC Hematocrit 46 % (37-52) POC Sodium 136 mmol/L (135-145) POC Potassium 5.4 mmol/L (3.5-5.0) H POC Chloride 101 mmol/L (98-110) POC Total CO2 27 mmol/L (23-32) POC Blood Urea Nitrogen 17 mg/dL (8-26) POC Creatinine 0.9 mg/dL (0.5-1.4) POC Ionized Calcium (Becka) 1.02 mmol/L (1.13-1.32) L Laboratory Tests 03/18/17 10:55 Laboratory Tests 03/18/17 10:55 03/18/17 11:00 EKG EKG [] Radiology/Procedures Radiology/Procedures [] Course & Med Decision Making Course & Med Decision Making Pertinent Labs and Imaging studies reviewed. (See chart for details) [] Dragon Disclaimer Dragon Disclaimer This electronic medical record was generated, in whole or in part, using a voice recognition dictation system. Departure Departure Impression: Primary Impression: Chest pain Disposition: ADMITTED INPATIENT Admitting Physician: Keiko Parks Condition: IMPROVED Referrals: KEIKO PARKS MD (PCP) EDWAR SELLERS MD Mar 18, 2017 12:04
[2017-03-18] MEDS ORDERED: ONDANSETRON PF 4 MG/2 ML VIAL. IV PRN (12:15)
[2017-03-18] MEDS ORDERED: IOHEXOL 350 MG/ML 100 ML VIAL. IV ONE (12:15)
[2017-03-18] MEDS ORDERED: CONTRAST GIVEN MC PRN (12:30)
--- NOTE | 2017-03-18 13:45 | RAD ---
Indication chest pain. History of pulmonary embolus. Contrast imaging through the chest was performed. Examination was tailored for the detection of pulmonary embolus. MIP images were generated and reviewed. Approximately 75 cc of Omnipaque 300 was administered intravenously. Note is made of a similar examination 08/24/2016. Imaging through the upper abdomen is unremarkable. The thoracic aorta appears unremarkable. There is no significant mediastinal or hilar adenopathy. The study is negative for pulmonary embolus. No dominant parenchymal mass is seen in either lung. An acute finding in the chest is not apparent. Calcified right hilar lymph nodes are noted. IMPRESSION: No acute finding seen in the chest. Negative study for pulmonary embolus PQRS Compliance Statement: One or more of the following individualized dose reduction techniques were utilized for this examination: 1. Automated exposure control 2. Adjustment of the mA and/or kV according to patient size 3. Use of iterative reconstruction technique
[2017-03-18 14:30] VITALS: BP 125/77
[2017-03-18] MEDS ORDERED: GABA-586 PO (14:47)
[2017-03-18] MEDS ORDERED: MELA3TAB2 PO (14:47)
[2017-03-18] MEDS ORDERED: SITA50TA PO (14:49)
[2017-03-18] MEDS ORDERED: BUPR300T3 PO (14:50)
[2017-03-18] MEDS ORDERED: IV NORMAL SALINE 1000ML BAG 1,000 ML IV ONE (15:00)
[2017-03-18] MEDS: IV NORMAL SALINE 1000ML BAG 1,000 ML IV SCH (15:00)
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
[2017-03-18] MEDS ORDERED: SULFUR HEXAFLUORIDE MICROSPHR 25 MG VIAL. IVP ONE (15:45)
--- NOTE | 2017-03-18 16:02 | EKG ---
[facility] [address] [place] [address] Test Date: 2017-03-18 Test Time: 15:51:21 Pat Name: ANABEL VALDIVIA Department: Room: 4 1 Gender: M Delimer: GISELA : 1970 Requested By: EDWAR SELLERS Order Number: [id number] Reading MD: Maylin Sandoval Measurements Intervals [employer] Rate: 70 P: 49 [place]: 126 QRS: -33 QRSD: 96 T: 155 QT: 412 QTc: 448 Interpretive Statements SINUS RHYTHM LEFT ANTERIOR FASCICULAR BLOCK T ABNORMALITY IN ANTEROLATERAL LEADS ABNORMAL ECG Electronically Signed On 03-20-2017 10:29:31 CDT by Maylin Sandoval
--- NOTE | 2017-03-18 16:14 | CARD ---
APPROVED REPORT EXAM: Two-dimensional and M-mode echocardiogram with Doppler, color Doppler with contrast. Other Information Quality : Technically Limited Rhythm : NSRTechnically limited study due to body habitus. INDICATION Chest Pain 2D DIMENSIONS RVDd3.1 (2.9-3.5cm)Left Atrium(2D)4.3 (1.6-4.0cm) IVSd1.0 (0.7-1.1cm)Aortic Root(2D)3.3 (2.0-3.7cm) LVDd6.5 (3.9-5.9cm)LVOT Diameter2.5 (1.8-2.4cm) PWd1.0 (0.7-1.1cm)LVDs4.9 (2.5-4.0cm) FS (%) 24.8 %SV104.5 ml LVEF(%)48.0 (>50%) Aortic Valve AoV Peak Riley.115.3cm/sAoV VTI21.6cm AO Peak GR.5.3mmHgLVOT Peak Riley.105.2cm/s LVOT VTI 22.71cmAO Mean GR.3mmHg CHANDLER (VMAX)4.63yp8JNX (VTI)5.31cm2 Mitral Valve MV E Yxabuhkx18.9cm/sMV DECEL UBPI204xn MV A Cbkdpmgo08.8cm/sMV UFA32mo E/A Ratio1.3MV A Gycpmujk65ql MVA (PHT)4.58cm2 TDI E/Lateral E'4.8E/Medial E'7.0 Pulmonary Valve PV Peak Xbxrkpig252.2cm/sPV Peak Grad.4mmHg RVOT VTI17.5cm Tricuspid Valve TR P. Ymxhiqho312wn/sRAP PFYAGOTE8qqUs TR Peak Gr.76tvEvKJGP46tbVa Pulmonary Vein S1 Gxfjyytx17.2cm/sD2 Nqrlepva28.8cm/s LEFT VENTRICLE The Left Ventricle is moderately dilated. There is normal left ventricular wall thickness. Left ventr icle systolic function is mildly impaired. The Ejection Fraction is 40-45%. There is global hypokines is of the left ventricle with predominant hypokinesis in the basal to mid inferior wall. Tissue Doppl er imaging reveals moderate left ventricular diastolic dysfunction. There is no ventricular septal de fect visualized. RIGHT VENTRICLE The right ventricle is normal size. The right ventricular systolic function is normal. ATRIA The left atrium is mildly dilated. The right atrium size is normal. The interatrial septum is intact with no evidence for an atrial septal defect or patent foramen ovale as noted on 2-D or Doppler imagi ng. AORTIC VALVE The aortic valve is mildly calcified. The aortic valve is trileaflet. Doppler and Color Flow revealed no significant aortic regurgitation. There is no significant aortic valvular stenosis. MITRAL VALVE The mitral valve is normal in structure and function. There is no mitral valve stenosis. Doppler and Color Flow revealed trace mitral regurgitation. TRICUSPID VALVE The tricuspid valve is not well visualized. Doppler and Color Flow revealed trace tricuspid regurgita tion. The PA pressure was estimated at 36 mmHg. There is no tricuspid valve stenosis. PULMONIC VALVE The pulmonic valve is not well visualized. Doppler and Color Flow revealed trace pulmonic valvular re gurgitation. There is no pulmonic valvular stenosis. GREAT VESSELS The aortic root is normal in size. The ascending aorta is normal in size. Pulmonary venous flow (Dopp ler) suggestive of moderate diastolic dysfunction. The IVC is normal in size and collapses >50% with inspiration. PERICARDIAL EFFUSION There is no evidence of significant pericardial effusion. Critical Notification Critical Value: No <Conclusion> Left ventricle systolic function is mildly impaired. The Ejection Fraction is 40-45%. There is global hypokinesis of the left ventricle with predominant hypokinesis in the basal to mid in ferior wall. Technically difficult study
[2017-03-18] MEDS: NICOTINE 21MG PATCH. TD SCH (16:24)
[2017-03-18] MEDS ORDERED: MAGNESIUM SULFATE 2GM 50 ML IV ONE (18:30)
[2017-03-18] MEDS: HYDROcodone/APAP 10/325 1 TAB TABLET PO PRN (18:32)
[2017-03-18 19:10] VITALS: BP 130/81
[2017-03-18] MEDS: ALPRAZolam 1 MG TABLET PO PRN (20:41)
[2017-03-18] MEDS: GABAPENTIN 300 MG CAPSULE. PO SCH (20:41)
[2017-03-18] MEDS ORDERED: ATORVASTATIN CALCIUM 40 MG TABLET. PO SCH (21:00)
[2017-03-18] MEDS ORDERED: NON FORMULARY ITEM (Melatonin 10 MG) PO SCH (21:00)
[2017-03-18 23:36] VITALS: BP 137/68
[2017-03-19] VITALS (14 sets, daily range): BP systolic 105–158; BP diastolic 53–90
[2017-03-19] MEDS: IV NORMAL SALINE 1000ML BAG 1,000 ML IV SCH (02:56)
[2017-03-19] MEDS: MORPHINE SULFATE 2 MG/ML DISP.SYRIN. IV PRN ×2 (04:53→08:01)
[2017-03-19 06:01] LABS: BASO # 0.1 x10^3/uL (0.0-0.2); BASO % 1 % (0-3); EOS % 3 % (0-3); HEMATOCRIT 41.4 % (39.0-53.0); HEMOGLOBIN 14.2 g/dL (13.0-17.5); LYMPH # 3.2 x10^3/uL (1.0-4.8); LYMPH % 36 % (24-48); MEAN CORPUSCULAR HEMOGLOBIN 32 pg (25-35); MEAN CORPUSCULAR HGB CONC 34 g/dL (31-37); MEAN CORPUSCULAR VOLUME 92 fL (79-100); MONO % 8 % (0-9); NEUT % 52 % (31-73); PLATELET COUNT 273 x10^3/uL (140-400)
[2017-03-19 06:25] LABS: CALCIUM 8.3 mg/dL (8.5-10.1); CREATININE 0.9 mg/dL (0.7-1.3); GFR 90.1; POTASSIUM 3.7 mmol/L (3.5-5.1)
[2017-03-19 06:45] LABS: CHOLESTEROL/HDL RATIO 10.2
[2017-03-19] MEDS ORDERED: PANTOPRAZOLE 40 MG TABLET.DR. PO SCH (07:30)
--- NOTE | 2017-03-19 08:27 | PDOC ---
Provider Note Provider Note [id number] KEIKO DIAZ MD Mar 19, 2017 08:27
--- NOTE | 2017-03-19 08:41 | PDOC ---
Provider Note Provider Note lipids 33 % 10 yr risk, add statin regardless of cath, had nl cath at [facility] 2014 KEIKO DIAZ MD Mar 19, 2017 08:41
--- NOTE | 2017-03-19 08:53 | HP ---
ADMIT DATE: 03/18/2017 CHIEF COMPLAINT: Chest pain. HISTORY OF PRESENT ILLNESS: A 46-year-old known hypertensive, type 2 diabetic and chronic smoker, who has had what appears to be exertional chest pain for the last week or two. He had a workup with a stress test several months ago, which was inconclusive, but mildly abnormal, but he never completed the full test and has not been seen in followup since that time. ER evaluation was unremarkable and he was seen by Cardiology and scheduled for catheterization today. PAST MEDICAL HISTORY: Shoulder surgeries, no previous cardiac events. MEDICATIONS: He is on 4 diabetic meds, good control. A1c last was 7.3 in the office. He has an anxiety disorder and takes Xanax and Wellbutrin. He takes hydrocodone about 30 mg a day for chronic low back pain, and lisinopril for hypertension. SOCIAL HISTORY: Pack-a-day smoker, has smoked since he was about 13. Denies alcohol use. , not physically active. FAMILY HISTORY: Unremarkable. REVIEW OF SYSTEMS: No other complaints. OBJECTIVE: ENT: All within normal limits. NECK: No masses, nodes or bruits. LUNGS: Clear. CARDIOVASCULAR: Regular rate. No irregular beat or murmur. ABDOMEN: Obese, soft, nontender. EXTREMITIES: Good pedal and radial pulses. No joint or skin lesions or nail bed findings. NEUROLOGIC: Physiologic. GENITOURINARY AND RECTAL: Not examined. ASSESSMENT: 1. Chest pain, suspicious for unstable angina in a patient with multiple risk factors. 2. Type 2 diabetes mellitus, well controlled. 3. Morbid obesity. 4. Hypertension. 5. Chronic tobacco abuse. 6. Chronic nonmalignant pain disorder. PLAN: Cardiac catheterization. KEIKO DIAZ MD DR: MOY/bere JOB#: [id number] / [id number]
[2017-03-19] MEDS ORDERED: IOHEXOL 300 MG/ML 100ML VIAL. ONE (08:55)
[2017-03-19] MEDS ORDERED: LIDOCAINE 2% 20 ML VIAL. ONE (08:55)
[2017-03-19] MEDS ORDERED: buPROPion XL 150 MG TAB.ER.24H. PO SCH (09:00)
[2017-03-19] MEDS ORDERED: GLIMEPIRIDE 2 MG TABLET. PO SCH (09:00)
[2017-03-19] MEDS ORDERED: NON FORMULARY ITEM (Liraglutide (Victoza 3-Pak) 1.8 MG) SQ SCH (09:00)
[2017-03-19] MEDS ORDERED: LINAGLIPTIN 5 MG TABLET PO SCH (09:00)
[2017-03-19] MEDS: GABAPENTIN 300 MG CAPSULE. PO SCH (09:00)
[2017-03-19] MEDS ORDERED: LISINOPRIL 10 MG TABLET PO SCH (09:00)
[2017-03-19] MEDS: NICOTINE 21MG PATCH. TD SCH (09:00)
[2017-03-19] MEDS ORDERED: fentaNYL PF VIAL 100 MCG/2 ML VIAL ONE (09:25)
[2017-03-19] MEDS ORDERED: HEPARIN for IV BOLUS 10,000 UNIT/10 ML VIAL. ONE (09:26)
[2017-03-19] MEDS ORDERED: MIDAZOLAM HCL/PF 5 MG/5 ML VIAL. ONE (09:26)
[2017-03-19] MEDS ORDERED: VERAPAMIL 5 MG/2 ML VIAL. ONE (09:26)
[2017-03-19] MEDS ORDERED: NITROGLYCERIN 200 MCG/2 ML SYRINGE FOR CATH/VASC LAB. ONE (09:28)
[2017-03-19] MEDS ORDERED: MIDAZOLAM HCL/PF 5 MG/5 ML VIAL. IV ONE (10:00)
[2017-03-19] MEDS ORDERED: LIDOCAINE 2% 20 ML VIAL. IJ ONE (10:00)
[2017-03-19] MEDS ORDERED: fentaNYL PF VIAL 100 MCG/2 ML VIAL IV ONE (10:00)
[2017-03-19] MEDS ORDERED: VERAPAMIL 5 MG/2 ML VIAL. IART ONE (10:00)
[2017-03-19] MEDS ORDERED: IOHEXOL 300 MG/ML 100ML VIAL. IART ONE (10:00)
[2017-03-19] MEDS ORDERED: HEPARIN for IV BOLUS 10,000 UNIT/10 ML VIAL. IART ONE (10:00)
[2017-03-19] MEDS ORDERED: NITROGLYCERIN 200 MCG/2 ML SYRINGE FOR CATH/VASC LAB. IART ONE (10:00)
[2017-03-19] MEDS ORDERED: IV 1/2 NORMAL SALINE 1,000 ML IV SCH (10:04)
--- NOTE | 2017-03-19 10:04 | PDOC ---
MODERATE SEDATION ASSESSMENT RISKS/ALTERNATIVES Risks/Alternatives Risks and alternatives of this type of sedation and procedure discussed with: RISK/ALTERNATIVES: Patient H & P ON CHART H & P H & P on chart and reviewed for co-morbid conditions and appropriate labs. H&P ON CHART: Yes STATUS PREG STATUS ASSESSED: N/A MEDS/ALLERGIES REVIEWED Meds/Allergies Reviewed Medications and Allergies including time and route of recently administered narcotics and sedatives. MEDS/ALLERGIES REVIEWED: Yes ASA RATING ASA RATING: II AIRWAY ASSESSMENT Airway Assessment Airway patency, oral function limitations, presence of caps, crowns, dentures, partials, and ability to extend neck assessed. AIRWAY ASSESSMENT: Yes MALLAMPATI SCORE MALLAMPATI SCORE: II PRE-SEDATION ASSESSMENT PRE-SEDATION ASSESSMENT: Yes LUCIA KAISER MD Mar 19, 2017 10:04
--- NOTE | 2017-03-19 10:13 | CARD ---
APPROVED REPORT Procedure(s) performed: Left Heart Catheterization, selective coronary and left ventriculography via right transradial approach 20 Minutes of Moderate Sedation INDICATION The indication(s) include : unstable angina . PROCEDURE NARRATIVE After explaining the risks, benefits and alternative options, informed consent was obtained from marbella ent. Patient was brought to the cardiac Vinyl Flooring Installer and right wrist was prepped and draped in the usual fashion after confirming a positive modified Eros's test. Arterial access was obtained in the [facility] t radial artery and a 6 Bahamian sheath was inserted. 6 Bahamian Peewee catheter was used to perform kentrell ective angiography of the left and right coronary arteries. 6 Bahamian pigtail catheter was used to pe rform left ventriculography. Patient tolerated the procedure well. Hemostasis was achieved using TR band. There were no immediate complications. The following findings were noted. FINDINGS 1. Hemodynamics: Left ventricular end-diastolic pressure of 27 mmHg. No pullback gradient across th e aortic valve. 2. Left ventriculography: Moderate global left ventricular systolic dysfunction with ejection fract ion estimated at 35%. No significant mitral regurgitation seen. 3. Coronary angiography: a. The left main coronary artery arose from the left sinus of Valsalva, gave rise to the left anteri or descending and left circumflex arteries and did not show any significant stenosis. b. The left anterior descending artery did not show any significant stenosis. c. The left circumflex artery did not show any significant stenosis. d. The right coronary artery was a large and dominant vessel arising from the right sinus of Valsalv a that did not show any significant stenosis. Conclusion 1. No significant coronary artery disease 2. Moderate global left ventricular systolic dysfunction with ejection fraction estimated at 35% Recommendations Optimization of medical therapy for non-ischemic cardiomyopathy Consider repeat echo in 3 months to evaluate need for AICD implantation
[2017-03-19] MEDS: HYDROcodone/APAP 10/325 1 TAB TABLET PO PRN (11:51)
[2017-03-19] MEDS: ALPRAZolam 1 MG TABLET PO PRN (11:53)
[2017-03-19] MEDS ORDERED: FENOFIBRATE 54 MG TABLET. PO SCH (14:00)
--- NOTE | 2017-03-19 15:37 | DS ---
DATE OF DISCHARGE: 03/19/2017 HOSPITAL SUMMARY: A 46-year-old white male with tobacco use, diabetes and hypertension, came in with exertional left-sided chest pain. Troponins were normal. EKG was normal and rest of the laboratory studies unremarkable. Cardiac catheterization was done and according to reports, all was within normal limits and he is comfortable to be discharged and followed as an outpatient. FINAL DIAGNOSES: 1. Chest pain, noncardiac in nature. 2. Hyperlipidemia with high risk for cardiovascular disease. 3. Chronic tobacco abuse. OPERATIONS AND PROCEDURES: Cardiac catheterization. COMPLICATIONS: None. CONSULTATIONS: Dr. Bob. DISPOSITION: Continue all meds the same. He will see us in the office in 1-2 weeks to discuss the need for statin as his 10-year risk is about 33% given his risk factors. KEIKO DIAZ MD DR: MOY/nts JOB#: [id number] / [id number]
[2017-03-19] MEDS ORDERED: LISI-334 PO ×2 (16:09→16:10)
[2017-03-19] MEDS ORDERED: FENO54TA PO (16:13)
[2017-03-19] MEDS ORDERED: CARVEDILOL 3.125 MG TABLET. PO SCH (17:00)
--- NOTE | 2017-03-22 07:17 | EKG ---
[facility] [address] [place] [address] Test Date: 2017-03-18 Test Time: 11:10:53 Pat Name: ANABEL VALDIVIA Department: Room: 207 1 Gender: M Chronic Condition Nurse: : 1970 Requested By: KEIKO DIAZ Order Number: [id number] Reading MD: Measurements Intervals [place] Rate: 84 P: 41 MO: 132 QRS: -40 QRSD: 96 T: 144 QT: 380 QTc: 452 Interpretive Statements SINUS RHYTHM COMPLEX(ES) WITH ABERRANT INTRAVENTRICULAR CONDUCTION ATRIAL PREMATURE COMPLEX(ES) ABNORMAL LEFT AXIS DEVIATION LEFT ANTERIOR FASCICULAR BLOCK QRS(T) CONTOUR ABNORMALITY CANNOT RULE OUT ANTEROSEPTAL MYOCARDIAL DAMAGE CANNOT RULE OUT INFERIOR MYOCARDIAL DAMAGE T ABNORMALITY IN HIGH LATERAL LEADS RI6.01 Unconfirmed report Compared to ECG 03/18/2017 10:40:44 Ventricular premature complex(es) no longer present T-wave abnormality still present
== END 2017-03-19 18:27 | disposition home or self-care (01) ==
LOC: ER 10:34 → 6 SOUTH 11:53 → 2 NORTH 03-19 10:26
PROVIDERS: ADMIT Family Medicine; ATTEND Family Medicine
DX: I20.0 Unstable angina (principal); E78.5 Hyperlipidemia, unspecified; I10 Essential (primary) hypertension; E11.9 Type 2 diabetes mellitus without complications; F17.210 Nicotine dependence, cigarettes, uncomplicated; F41.9 Anxiety disorder, unspecified; G89.29 Other chronic pain; E66.01 Morbid (severe) obesity due to excess calories; K21.9 Gastro-esophageal reflux disease without esophagitis; M19.90 Unspecified osteoarthritis, unspecified site; E87.5 Hyperkalemia; E78.00 Pure hypercholesterolemia, unspecified; I25.2 Old myocardial infarction; Z86.711 Personal history of pulmonary embolism; Z82.49 Family history of ischemic heart disease and other diseases of the circulatory system
CPT/HCPCS: 36415; 71010; 71275; 80047; 80048; 80061; 80076; 82962; 83036; 83690; 83735; 83880; 84443; 84484; 85025; 93005; 93458; 96365; 96372; 96375; 96376; 99285; C1769; C1892; C8929; G0378; J1644; J1650; J2250; J2270; J3010; J3490; J7030; J7060; J7620; Q9967; G0379; J2001; Q9950

== ENCOUNTER → 2017-06-14 | Outpatient (CLI) | payer BC ==
[2017-03-19 15:00] VITALS: BP 105/54
[~2017-06-14] MED LIST changes: +BUPR300T3 PO; +FENO54TA PO; +LISI-334 PO; +MELA3TAB2 PO; +SITA50TA PO
--- NOTE | 2017-06-14 13:23 | KCIC ---
Indication: Chronic left hip pain. Time of exam 12:16 PM An AP view of the pelvis and 2 views of the left hip were obtained. Femoral acetabular alignment is normal. The femoral head and neck are intact. No fractures are seen. The joint space is well-maintained. IMPRESSION: No acute bony abnormality is detected. Electronically signed by: Caden Weaver MD (06/14/2017 1:20 PM) [id number]
== END | disposition home or self-care (01) ==
LOC: KCIC 11:16
PROVIDERS: ATTEND Physician Assistant Medical
DX: M25.552 Pain in left hip (principal); G89.29 Other chronic pain
CPT/HCPCS: 73502

== ENCOUNTER → 2017-06-22 | Outpatient (CLI) | payer BC ==
[2017-03-19 15:00] VITALS: BP 105/54
--- NOTE | 2017-06-22 11:10 | KCIC ---
EXAMINATION: Magnetic resonance imaging (MRI) of the lumbar spine without contrast HISTORY: Lumbago with sciatica. Numbness across sacral region. TECHNIQUE: Multiplanar multi-weighted MRI of the lumbar spine was performed without intravenous contrast using the standard lumbar spine protocol. Contrast information: None administered COMPARISON: MRI lumbar spine September 27, 2015 FINDINGS: There is minimal retrolisthesis of L4 on L5 and L5 on S1, stable. Vertebral bodies demonstrate normal signal intensity on all sequences. There are no compression fractures. The conus medullaris terminates at the level of L1-L2. The distal spinal cord signal intensity is normal. There is disc desiccation at L2-L3 and L3-L4. Limited views of the abdomen and pelvis show no soft tissue abnormality. The aorta is normal. L1-L2: The disc is normal in configuration. There is no facet arthropathy. There is no neuroforaminal stenosis. There is no spinal canal stenosis. L2-L3: There is a mild circumferential disc bulge. There is mild facet arthropathy. There is no neuroforaminal stenosis. There is no spinal canal stenosis. L3-L4: There is minimal circumferential disc bulge. There is mild facet arthropathy. There is mild right neuroforaminal stenosis. There is no spinal canal stenosis. L4-L5: There is minimal circumferential disc bulge. There is mild facet arthropathy. There is mild neuroforaminal stenosis. There is no spinal canal stenosis. L5-S1: The disc is normal in configuration. There is no facet arthropathy. There is no neuroforaminal stenosis. There is no spinal canal stenosis. IMPRESSION: Mild degenerative changes of the lumbar spine as described in detail above. Findings are not significantly changed since prior examination from September 27, 2015. Electronically signed by: Loretta Holt MD (06/22/2017 11:07 AM) [id number]
== END | disposition home or self-care (01) ==
LOC: KCIC MRI 10:00
PROVIDERS: ATTEND Physician Assistant Medical
DX: M54.40 Lumbago with sciatica, unspecified side (principal); M47.896 Other spondylosis, lumbar region; R20.0 Anesthesia of skin
CPT/HCPCS: 72148

== ENCOUNTER 2017-06-26 18:26 | Emergency (ER) | payer BC ==
[~2017-06-26] VITALS: Ht 185.4 cm; Wt 140.6 kg
[2017-06-26 18:42] VITALS: BP 187/104
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
[2017-06-26] MEDS ORDERED: HYDROcodone/APAP 5/325MG 1 TAB TABLET PO ONE (20:00)
[2017-06-26] MEDS ORDERED: LIDOCAINE 1% / SOD BICARB 8.4% 20 ML VIAL. IJ ONE (20:00)
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
== END 2017-06-26 20:31 | disposition home or self-care (01) ==
LOC: ER 18:26
DX: S46.912A Strain of unspecified muscle, fascia and tendon at shoulder and upper arm level, left arm, initial encounter (principal); S46.911A Strain of unspecified muscle, fascia and tendon at shoulder and upper arm level, right arm, initial encounter; S16.1XXA Strain of muscle, fascia and tendon at neck level, initial encounter; E11.9 Type 2 diabetes mellitus without complications; E78.00 Pure hypercholesterolemia, unspecified; I10 Essential (primary) hypertension; I25.2 Old myocardial infarction; Z86.711 Personal history of pulmonary embolism; V43.62XA Car passenger injured in collision with other type car in traffic accident, initial encounter; Y93.I9 Activity, other involving external motion; Y92.410 Unspecified street and highway as the place of occurrence of the external cause; Y99.8 Other external cause status
CPT/HCPCS: 72125; 73030; 99284

== ENCOUNTER → 2017-07-07 | Outpatient (CLI) | payer OTHER ==
[2017-06-26 18:42] VITALS: BP 187/104
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
--- NOTE | 2017-07-07 10:15 | KCIC ---
MR of the left shoulder Indication: Left shoulder pain and numbness. Tingling. Technique: Standard multiplanar sequences are obtained. Findings: Mild motion degradation but the study is diagnostic Acromioclavicular joint: Mildly degenerative. Rotator cuff: Full-thickness tear of the anterior supraspinatus tendon, measures about 15 mm AP diameter by 1 cm transverse at the undersurface. More generalized rotator cuff tendinosis. No high-grade subscapularis tendon tear. Trace subdeltoid bursal fluid. No advanced rotator cuff muscle atrophy. Glenohumeral cartilage: Grossly intact. Fluid: No significant joint effusion. Labrum: Mild signal within the superior labrum. No definite labral tear but detection could be limited by the motion degradation. Biceps tendon: Intact Bones: No lesion or acute fracture. Soft tissue: No acute findings. Impression: 1. Small full-thickness rotator cuff tear of the anterior supraspinatus tendon. 2. Superior labral degeneration. No definite tear. Electronically signed by: Driss Trivedi MD (07/07/2017 10:12 AM) [facility]
== END | disposition home or self-care (01) ==
LOC: KCIC MRI 07:36
PROVIDERS: ATTEND Physician Assistant
DX: M50.30 Other cervical disc degeneration, unspecified cervical region (principal); M75.122 Complete rotator cuff tear or rupture of left shoulder, not specified as traumatic; R20.0 Anesthesia of skin; Y92.410 Unspecified street and highway as the place of occurrence of the external cause
CPT/HCPCS: 72141; 73221

== ENCOUNTER → 2017-07-19 | Day surgery (SDC) | payer OTHER, BC ==
[~2017-07-19] MED LIST changes: +ALBUTEROL SULFATE 2.5 MG/3 ML NEBU.; -ALPR1TAB2 PO; -ASPI-630 PO; -BUPR300T3 PO; +DEXAMETHASONE SOD PHOS 20 MG/5 ML VIAL.; +FAMOTIDINE 20 MG/2 ML VIAL; -FENO54TA PO; -GABA-586 PO; -GABA600T2 PO; -GLIM2TAB2 PO; -GLIM4TAB2 PO; +GLYCOPYRROLATE 1 MG/5 ML VIAL.; -HYDR-2766 PO; -HYDR-963 PO; +HYDROmorphone 2 MG/ML VIAL IV; +LABETALOL 20 MG/4 ML DISP.SYRIN.; +LIDOCAINE 1% PF 2 ML VIAL. ID; +LIDOCAINE 2% PF Vial for OR 5 ML VIAL.; -LIRA0.6P2 SQ; -LISI-334 PO; -LISI10TA2 PO; -MELA3TAB2 PO; -MELO15TA23 PO; -METF500T4 PO; +MIDAZOLAM HCL/PF 2 MG/2 ML VIAL.; +MORPHINE SULFATE 2 MG/ML DISP.SYRIN. IV; +NEOSTIGMINE METHYLSULFATE 5 MG/5 ML SYRINGE.; -OMEP40CA5 PO; -ONDA4TAB10 SL; +ONDANSETRON PF 4 MG/2 ML VIAL.; +ONDANSETRON PF 4 MG/2 ML VIAL. IV; -OXYC-323 PO; +PROCHLORPERAZINE 10 MG/2 ML VIAL. IV; +PROPOFOL 20 ML IV; +ROCURONIUM 50 MG/5 ML VIAL.; +ROPIVacaine 0.5% PF 30 ML VIAL.; +SEVOFLURANE 61 TO 120 MINUTES. IH; -SITA50TA PO; -TAPE75TA3 PO; +fentaNYL PF VIAL 100 MCG/2 ML VIAL; +fentaNYL PF VIAL 100 MCG/2 ML VIAL IV
[2017-07-19] MEDS: IV RINGERS,LACTATED 1000ML 1,000 ML IV (09:55)
[2017-07-19 09:56] LABS: POC GLUCOSE 263 mg/dL (70-99)
[2017-07-19] MEDS: ALBUTEROL SULFATE 2.5 MG/3 ML NEBU. NEB ×2 (10:00→14:30)
[2017-07-19] MEDS: BUPIVACAINE MPF 0.5% 30 ML VIAL. (12:41)
[2017-07-19] MEDS: EPINEPHrine VIAL 30 MG/30 ML VIAL (12:41)
[2017-07-19] MEDS: LIDOCAINE 1% PF 30 ML VIAL. (12:41)
[2017-07-19 13:58] LABS: POC GLUCOSE 197 mg/dL (70-99)
[2017-07-19] MEDS: LABETALOL 20 MG/4 ML DISP.SYRIN. IVP (14:00)
[2017-07-19] MEDS: HYDROcodone/APAP 10/325 1 TAB TABLET PO (14:44)
== END | disposition home or self-care (01) ==
LOC: SURG 09:19
DX: S46.012A Strain of muscle(s) and tendon(s) of the rotator cuff of left shoulder, initial encounter (principal); X58.XXXA Exposure to other specified factors, initial encounter; Y93.89 Activity, other specified; Y92.89 Other specified places as the place of occurrence of the external cause; Y99.8 Other external cause status; E78.00 Pure hypercholesterolemia, unspecified; I10 Essential (primary) hypertension; E66.9 Obesity, unspecified; Z68.41 Body mass index [BMI] 40.0-44.9, adult; E03.9 Hypothyroidism, unspecified; F41.9 Anxiety disorder, unspecified; F32.9 Major depressive disorder, single episode, unspecified; Z72.89 Other problems related to lifestyle; Z86.718 Personal history of other venous thrombosis and embolism; Z72.0 Tobacco use
CPT/HCPCS: 29827; 82962; C1713; J0171; J1100; J2250; J2405; J2704; J2710; J2795; J3010; J3490; J7120; J7613; S0028

== ENCOUNTER 2017-07-26 00:59 | Emergency (ER) | payer BC, OTHER ==
[2017-07-26] MEDS: IPRATRPIUM/ALBUTEROL 0.5/2.5MG 3 ML NEBU. NEB (02:06)
[2017-07-26 02:14] LABS: ADD MAN DIFF? NO
[2017-07-26 02:15] LABS: BASO % 0 % (0-3); EOS # 0.3 x10^3/uL (0.0-0.7); EOS % 2 % (0-3); HEMATOCRIT 42.5 % (39.0-53.0); HEMOGLOBIN 14.6 g/dL (13.0-17.5); LYMPH # 3.3 x10^3/uL (1.0-4.8); LYMPH % 30 % (24-48); MEAN CORPUSCULAR HEMOGLOBIN 32 pg (25-35); MEAN CORPUSCULAR HGB CONC 34 g/dL (31-37); MEAN CORPUSCULAR VOLUME 93 fL (79-100); MONO # 0.7 x10^3/uL (0.0-1.1); MONO % 7 % (0-9); NEUT # 6.6 x10^3uL (1.8-7.7); NEUT % 61 % (31-73); PLATELET COUNT 303 x10^3/uL (140-400); RED CELL DISTRIBUTION WIDTH 13.7 % (11.5-14.5); WHITE BLOOD COUNT 10.8 x10^3/uL (4.0-11.0)
[2017-07-26 02:24] LABS: ANION GAP 10 (6-14); BLOOD UREA NITROGEN 13 mg/dL (8-26); BUN/CREATININE RATIO 14 (6-20); CALCIUM 8.5 mg/dL (8.5-10.1); CARBON DIOXIDE 28 mmol/L (21-32); CHLORIDE 99 mmol/L (98-107); CREATININE 0.9 mg/dL (0.7-1.3); GFR 90.1; GLUCOSE 276 mg/dL (70-99); SODIUM 137 mmol/L (136-145)
[2017-07-26 02:30] LABS: ALBUMIN 3.1 g/dL (3.4-5.0); ALBUMIN/GLOBULIN RATIO 0.7 (1.0-1.7); ALK PHOS 117 U/L (46-116); ALT (SGPT) 35 U/L (16-63); AST (SGOT) 15 U/L (15-37); TOTAL BILIRUBIN 0.2 mg/dL (0.2-1.0); TOTAL PROTEIN 7.3 g/dL (6.4-8.2)
[2017-07-26 02:35] LABS: NT-PRO BNP 47 pg/mL (0-124)
[2017-07-26 02:39] LABS: TROPONINI < 0.017 ng/mL (0.000-0.055)
[2017-07-26] MEDS: fentaNYL PF VIAL 100 MCG/2 ML VIAL IV (02:41)
== END 2017-07-26 03:25 | disposition home or self-care (01) ==
LOC: ER 00:59
DX: R60.0 Localized edema (principal); L03.116 Cellulitis of left lower limb; L03.115 Cellulitis of right lower limb; R06.02 Shortness of breath; E11.9 Type 2 diabetes mellitus without complications; E78.00 Pure hypercholesterolemia, unspecified; I10 Essential (primary) hypertension; I25.2 Old myocardial infarction; E66.9 Obesity, unspecified; Z86.711 Personal history of pulmonary embolism; Z68.42 Body mass index [BMI] 45.0-49.9, adult
CPT/HCPCS: 36415; 71045; 80053; 83880; 84484; 85025; 93005; 93970; 94640; 96374; 99285-25; J3010; J7620

== ENCOUNTER → 2017-08-09 | Outpatient (CLI) | payer BC ==
[2017-08-09] MEDS: OXYMETAZOLINE 0.05% NASAL SPRAY 30ML BOTTLE. NS (21:30)
[2017-08-09] MEDS: ZOLPIDEM 5 MG TABLET. PO (21:30)
== END | disposition home or self-care (01) ==
LOC: SLPLAB 17:59
DX: G47.33 Obstructive sleep apnea (adult) (pediatric) (principal)
CPT/HCPCS: 95810

== ENCOUNTER → 2017-08-26 | Outpatient (CLI) | payer BC ==
[2017-08-26] MEDS: ZOLPIDEM 5 MG TABLET. PO ×2 (21:30)
[2017-08-26] MEDS: OXYMETAZOLINE 0.05% NASAL SPRAY 30ML BOTTLE. NS ×2 (23:00)
[2017-08-27] MEDS: ZOLPIDEM 5 MG TABLET. PO ×2 (00:30)
== END | disposition home or self-care (01) ==
LOC: SLPLAB 20:57
DX: G47.33 Obstructive sleep apnea (adult) (pediatric) (principal)
CPT/HCPCS: 95811

== ENCOUNTER → 2017-09-09 | Outpatient (CLI) | payer OTHER, BC | END | disposition home or self-care (01) | LOC: MRI 09:35 | DX: M75.102 Unspecified rotator cuff tear or rupture of left shoulder, not specified as traumatic (principal); M19.012 Primary osteoarthritis, left shoulder; I10 Essential (primary) hypertension; E11.9 Type 2 diabetes mellitus without complications; Z98.890 Other specified postprocedural states | CPT/HCPCS: 73221 ==

== ENCOUNTER 2017-09-27 22:16 | Inpatient (IN) | payer BC ==
[2017-09-27] MEDS ORDERED: MORPHINE SULFATE 2 MG/ML DISP.SYRIN. IV/SQ (22:45)
[2017-09-27 22:49] LABS: ADD MAN DIFF? NO
[2017-09-27 22:51] LABS: BASO # 0.1 x10^3/uL (0.0-0.2); BASO % 1 % (0-3); EOS # 0.1 x10^3/uL (0.0-0.7); EOS % 1 % (0-3); HEMATOCRIT 42.1 % (39.0-53.0); LYMPH # 3.3 x10^3/uL (1.0-4.8); LYMPH % 27 % (24-48); MEAN CORPUSCULAR HEMOGLOBIN 30 pg (25-35); MEAN CORPUSCULAR HGB CONC 33 g/dL (31-37); MEAN CORPUSCULAR VOLUME 91 fL (79-100); MONO # 0.7 x10^3/uL (0.0-1.1); MONO % 6 % (0-9); NEUT # 7.9 x10^3uL (1.8-7.7); NEUT % 65 % (31-73); PLATELET COUNT 436 x10^3/uL (140-400); RED BLOOD COUNT 4.62 x10^6/uL (4.30-5.70); RED CELL DISTRIBUTION WIDTH 14.7 % (11.5-14.5); WHITE BLOOD COUNT 12.2 x10^3/uL (4.0-11.0)
[2017-09-27] MEDS ORDERED: MORPHINE SULFATE 4 MG/ML DISP.SYRIN. (22:55)
[2017-09-27] MEDS: IV NORMAL SALINE 1000ML BAG 1,000 ML IV (22:58)
[2017-09-27] MEDS: MORPHINE SULFATE 4 MG/ML DISP.SYRIN. IV/SQ ×3 (22:58→23:37)
[2017-09-27 23:08] LABS: LACTIC ACID 1.4 mmol/L (0.4-2.0)
[2017-09-27 23:32] LABS: ANION GAP 10 (6-14); BLOOD UREA NITROGEN 12 mg/dL (8-26); BUN/CREATININE RATIO 13 (6-20); CALCIUM 8.7 mg/dL (8.5-10.1); CARBON DIOXIDE 28 mmol/L (21-32); CHLORIDE 100 mmol/L (98-107); CREATININE 0.9 mg/dL (0.7-1.3); GFR 90.1; GLUCOSE 166 mg/dL (70-99); POTASSIUM 3.9 mmol/L (3.5-5.1); SODIUM 138 mmol/L (136-145)
[2017-09-27 23:34] LABS: D-DIMER 1.34 ug/mlFEU (0.00-0.50)
[2017-09-27 23:38] LABS: ALBUMIN 2.6 g/dL (3.4-5.0); ALBUMIN/GLOBULIN RATIO 0.6 (1.0-1.7); ALK PHOS 98 U/L (46-116); ALT (SGPT) 19 U/L (16-63); AST (SGOT) 8 U/L (15-37); TOTAL BILIRUBIN 0.2 mg/dL (0.2-1.0); TOTAL PROTEIN 6.7 g/dL (6.4-8.2)
[2017-09-27 23:41] LABS: TROPONINI 0.022 ng/mL (0.000-0.055)
[2017-09-27] MEDS ORDERED: CONTRAST GIVEN MC (23:45)
[2017-09-27 23:47] LABS: NT-PRO BNP 778 pg/mL (0-124)
[2017-09-27 23:47] LABS: CKMB MASS 0.6 ng/mL (0.0-3.6); CREATINE KINASE 37 U/L (39-308)
[2017-09-28] MEDS ORDERED: fentaNYL PF VIAL 100 MCG/2 ML VIAL (00:01)
[2017-09-28] MEDS: fentaNYL PF VIAL 100 MCG/2 ML VIAL IV ×8 (00:03→18:26)
[2017-09-28] MEDS: KETOROLAC 30 MG/ML INJ. IV (00:04)
[2017-09-28] MEDS: IOHEXOL 300 MG/ML 100ML VIAL. IV (00:12)
[2017-09-28] MEDS: HYDROmorphone 2 MG/ML VIAL IV (00:15)
[2017-09-28] MEDS ORDERED: ONDANSETRON PF 4 MG/2 ML VIAL. (00:16)
[2017-09-28] MEDS: ONDANSETRON PF 4 MG/2 ML VIAL. IV ×2 (00:18→07:47)
[2017-09-28] MEDS ORDERED: MORPHINE SULFATE 4 MG/ML DISP.SYRIN. IV (01:15)
[2017-09-28] MEDS: IV NORMAL SALINE 1000ML BAG 1,000 ML IV (01:15)
[2017-09-28] MEDS: oxyCODONE/APAP 10/325 1 TAB TABLET PO ×2 (02:42→21:03)
[2017-09-28] MEDS: IPRATRPIUM/ALBUTEROL 0.5/2.5MG 3 ML NEBU. NEB ×5 (06:00→19:54)
[2017-09-28 06:38] LABS: TROPONINI 0.241 ng/mL (0.000-0.055)
[2017-09-28 08:01] LABS: POC GLUCOSE 158 mg/dL (70-99)
[2017-09-28 08:07] LABS: TROPONINI 0.659 ng/mL (0.000-0.055)
[2017-09-28] MEDS ORDERED: NITROGLYCERIN SUBLINGUAL 0.4 MG BOTTLE OF 25. SL (08:30)
[2017-09-28] MEDS: LIRAGLUTIDE 6 MG/ML SQ (09:00)
[2017-09-28] MEDS ORDERED: LISINOPRIL 20 MG TABLET PO (09:00)
[2017-09-28] MEDS: LACTOBACILLUS RHAMNOSUS GG 1 CAPSULE. PO ×2 (09:45→21:03)
[2017-09-28] MEDS: LISINOPRIL 10 MG TABLET PO (09:46)
[2017-09-28] MEDS: GABAPENTIN 400 MG CAPSULE. PO ×2 (09:47→21:03)
[2017-09-28] MEDS: LINAGLIPTIN 5 MG TABLET PO (09:47)
[2017-09-28] MEDS: ASPIRIN CHEWABLE 81 MG TABLET. PO (09:48)
[2017-09-28 10:11] LABS: ANION GAP 8 (6-14); BLOOD UREA NITROGEN 13 mg/dL (8-26); CALCIUM 8.6 mg/dL (8.5-10.1); CARBON DIOXIDE 31 mmol/L (21-32); CHLORIDE 101 mmol/L (98-107); CHOLESTEROL 170 mg/dL (0-200); CREATININE 1.1 mg/dL (0.7-1.3); GFR 71.4; GLUCOSE 205 mg/dL (70-99); HDLC 21 mg/dL (40-60); LDLC 69 mg/dL (0-100); MAGNESIUM 1.9 mg/dL (1.8-2.4); NON-HDL CHOLESTEROL 149 mg/dL (0-129); SODIUM 140 mmol/L (136-145); TRIGLYCERIDES 398 mg/dL (0-150); VLDLC 80 mg/dL (0-40)
[2017-09-28 10:19] LABS: CHOLESTEROL/HDL RATIO 8.1
[2017-09-28 10:22] LABS: POTASSIUM 4.9 mmol/L (3.5-5.1)
[2017-09-28 11:36] LABS: POC GLUCOSE 235 mg/dL (70-99)
[2017-09-28] MEDS: INSULIN ASPART 300 UNITS/3 ML INSULN.PEN SQ ×2 (13:32→16:54)
[2017-09-28 16:20] LABS: POC GLUCOSE 210 mg/dL (70-99)
[2017-09-28] MEDS: FENOFIBRATE 54 MG TABLET. PO (16:51)
[2017-09-28 20:37] LABS: POC GLUCOSE 395 mg/dL (70-99)
[2017-09-28] MEDS ORDERED: NON FORMULARY ITEM (Melatonin 10 MG) PO (21:00)
[2017-09-28] MEDS: INSULIN DETEMIR 300 UNITS/3 ML INSULN.PEN. SQ (21:11)
[2017-09-28] MEDS: cefTRIAXone IV Push 1 GM VIAL. IVP (22:07)
[2017-09-29] MEDS: oxyCODONE/APAP 10/325 1 TAB TABLET PO (00:33)
[2017-09-29] MEDS: IPRATRPIUM/ALBUTEROL 0.5/2.5MG 3 ML NEBU. NEB (06:00)
[2017-09-29 07:48] LABS: POC GLUCOSE 209 mg/dL (70-99)
[2017-09-29] MEDS: PANTOPRAZOLE 40 MG TABLET.DR. PO (08:44)
[2017-09-29] MEDS: FENOFIBRATE 54 MG TABLET. PO (08:45)
[2017-09-29] MEDS: LACTOBACILLUS RHAMNOSUS GG 1 CAPSULE. PO (08:45)
[2017-09-29] MEDS: GABAPENTIN 400 MG CAPSULE. PO (08:45)
[2017-09-29] MEDS: LISINOPRIL 10 MG TABLET PO (08:46)
[2017-09-29] MEDS: LIRAGLUTIDE 6 MG/ML SQ (08:46)
[2017-09-29] MEDS: LINAGLIPTIN 5 MG TABLET PO (08:46)
[2017-09-29] MEDS: INSULIN ASPART 300 UNITS/3 ML INSULN.PEN SQ (08:57)
== END 2017-09-29 09:19 | disposition home or self-care (01) | DRG 291 ==
LOC: 5 NORTH 09-28 01:45 → ER 22:16
PROVIDERS: Family Medicine
PROC: 5A09357 Assistance with Respiratory Ventilation, Less than 24 Consecutive Hours, Continuous Positive Airway Pressure (ICD-10-PCS; principal; 2017-09-28)
DX: I11.0 Hypertensive heart disease with heart failure (principal); J18.9 Pneumonia, unspecified organism; I24.8 Other forms of acute ischemic heart disease; E11.65 Type 2 diabetes mellitus with hyperglycemia; E66.01 Morbid (severe) obesity due to excess calories; J44.0 Chronic obstructive pulmonary disease with (acute) lower respiratory infection; Z68.42 Body mass index [BMI] 45.0-49.9, adult; I42.8 Other cardiomyopathies; I50.22 Chronic systolic (congestive) heart failure; E78.00 Pure hypercholesterolemia, unspecified; G47.33 Obstructive sleep apnea (adult) (pediatric); R91.1 Solitary pulmonary nodule; F17.201 Nicotine dependence, unspecified, in remission; E78.5 Hyperlipidemia, unspecified; K21.9 Gastro-esophageal reflux disease without esophagitis; F41.9 Anxiety disorder, unspecified; M19.90 Unspecified osteoarthritis, unspecified site; Z82.49 Family history of ischemic heart disease and other diseases of the circulatory system; I25.2 Old myocardial infarction; Z87.01 Personal history of pneumonia (recurrent)
CPT/HCPCS: 36415; 71045; 71275; 80048; 80053; 80061; 82553; 82962; 83605; 83735; 83880; 84484; 85025; 85379; 87040; 93005; 93306; 94640; 94760; 96374; 96375; 96376; 99285; 99285-25; J0690; J0696; J1815; J1885; J2270; J2405; J3010; J7030; J7620; Q9967

== ENCOUNTER → 2018-03-23 | Outpatient (CLI) | payer BC, OTHER ==
[2017-09-29 08:46] VITALS: BP 115/65
[~2018-03-23] MED LIST changes: -ALBUTEROL SULFATE 2.5 MG/3 ML NEBU.; +ALPR1TAB2 PO; +ASPI-630 PO; +BUDE10.2 IH; +BUPR300T3 PO; -DEXAMETHASONE SOD PHOS 20 MG/5 ML VIAL.; +DOXY100C2 PO; -FAMOTIDINE 20 MG/2 ML VIAL; +FENO54TA PO; +GABA-586 PO; +GABA600T2 PO; +GLIM2TAB2 PO; +GLIM4TAB2 PO; -GLYCOPYRROLATE 1 MG/5 ML VIAL.; +HYDR-2766 PO; +HYDR-963 PO; -HYDROmorphone 2 MG/ML VIAL IV; +INSU100I13 SQ; +INSU100I17 SQ; +IOHEXOL 180 MG/ML 10 ML VIAL. ONE; +IPRA3AMP29 NEB; -LABETALOL 20 MG/4 ML DISP.SYRIN.; +LEVO750T31 PO; -LIDOCAINE 1% PF 2 ML VIAL. ID; +LIDOCAINE 2% PF 2ML VIAL. ONE; -LIDOCAINE 2% PF Vial for OR 5 ML VIAL.; +LIRA0.6P2 SQ; +LISI-334 PO; +LISI10TA2 PO; +MELA3TAB2 PO; +MELO15TA23 PO; +METF500T16 PO; -MIDAZOLAM HCL/PF 2 MG/2 ML VIAL.; -MORPHINE SULFATE 2 MG/ML DISP.SYRIN. IV; -NEOSTIGMINE METHYLSULFATE 5 MG/5 ML SYRINGE.; +OMEP40CA5 PO; +ONDA4TAB10 SL; -ONDANSETRON PF 4 MG/2 ML VIAL.; -ONDANSETRON PF 4 MG/2 ML VIAL. IV; +OXYC-323 PO; -PROCHLORPERAZINE 10 MG/2 ML VIAL. IV; -PROPOFOL 20 ML IV; -ROCURONIUM 50 MG/5 ML VIAL.; -ROPIVacaine 0.5% PF 30 ML VIAL.; -SEVOFLURANE 61 TO 120 MINUTES. IH; +SITA50TA PO; +TAPE75TA3 PO; -fentaNYL PF VIAL 100 MCG/2 ML VIAL; -fentaNYL PF VIAL 100 MCG/2 ML VIAL IV; +methylPREDNISolone ACETATE 40 MG/ML VIAL. ONE; +methylPREDNISolone ACETATE 80 MG/ML VIAL. ONE
--- NOTE | 2018-03-23 17:52 | PAIN ---
DATE OF SERVICE: 03/23/2018 PROGRESS NOTE FOR PAIN CLINIC DIAGNOSES: 1. Lumbar radiculopathy with lumbar degenerative disk disease. 2. Cervical radiculopathy with cervical degenerative disk disease. 3. Left sacroiliitis. HISTORY OF PRESENT ILLNESS: The patient is a 47-year-old male who returns for followup, last seen 08/2015. The patient underwent a left sacroiliac joint injection with good results. The patient reports he did well with the trigger points that he had had at that time as well. The patient reports pain now is different as in the low back primarily and then radiating into the bilateral lower extremities, somewhat worse on the right than the left with radiation into the posterior gluteus, posterior thigh, lateral thigh and anterior thigh bilaterally, but again worse on the left side and across the low back. The patient reports it is a 9 on a scale of 10 at its worst, on average and its least and is a 9 today. The patient reports it is becoming more unbearable, is dull, aching, throbbing and shooting with some radiating pain into the lower extremities, again worse on the right side. The patient reports no recent injury or accident or other etiology for the pain. It has just been getting worse. The patient reports he has been gaining some weight. It is worse with standing, walking and changing positions, better with sitting or lying down. It does not awaken him from sleep at night. The patient reports no loss of motor function, but significant fatigability in the legs and especially in the low back with standing more than about 15 minutes. PHYSICAL EXAMINATION: VITAL SIGNS: The patient's blood pressure 128/93, pulse 98, respirations 18, temperature 97.9 degrees Fahrenheit, height 6 feet 1 inch, weight is 358 pounds. GENERAL: The patient is awake, alert, oriented, appropriate, very pleasant demeanor. HEENT: Head shows normocephalic, atraumatic. Extraocular movements are intact and symmetrical. Oral cavity: Mucous membranes are moist and pink. Dentition is intact. NECK: Shows anterior throat supple without palpable lymphadenopathy noted. Swallow reflex is symmetrical. CHEST: Shows normal on inspection. Breath sounds are clear to auscultation bilaterally. HEART: Shows S1, S2 clear. No murmurs auscultated. ABDOMEN: Obese, soft, nontender, nondistended. No palpable organomegaly is noted. No rebound or guarding demonstrated. BACK: Shows spine grossly in the midline. Normal appearing thoracic kyphosis and some minor flattening of lumbar lordotic curvature. Lumbar paraspinous muscle shows symmetrical on inspection, on palpation shows some moderate tenderness, but only diffusely without radiation. The patient has good rotational motion of lumbar spine, both laterally as well as extension and flexion without significant difficulty or pain reported. Minor tenderness with extension, but not with forward flexion. EXTREMITIES: Lower extremities show deep tendon reflexes at 1+ in the patellar and tendo calcaneus tendons. Motor exam is strong with 5/5 dorsiflexion, extension, quadriceps and hamstring flexion and equal. Straight leg raise is noted to be mildly positive on the right at about 45 degrees, but decreased with knee flexion. Left side is negative. Gaenslen's and Je's maneuvers are negative bilaterally. Peripheral pulses are 1+ posterior tibia and equal. Options were discussed with the patient. The patient's old chart was reviewed as his current medication regimen updated. Current review of systems updated today as well. We will proceed with a lumbar epidural steroid injection today. Risks were discussed including but not limited to bleeding, infection, possibility of epidural hematoma, subsequent neurologic compromise, dural puncture, headaches, spinal cord and/or nerve damage, side effects of steroid medication and poor results regarding pain control. The patient understands and wished to proceed. The patient to return to clinic in approximately 2 weeks for followup, was counseled on return appointment, activity level and side effects to be aware of. DIAGNOSIS: Lumbar radiculopathy with lumbar degenerative disk disease. PROCEDURE: Lumbar epidural steroid injection, translaminar approach at L4-L5 level using C-arm fluoroscopic guidance under sterile prep and drape using local anesthetic. MEDICATION INJECTED: A total of 120 mg Depo-Medrol plus 10 mL of preservative-free normal saline and 2 mL of Isovue for contrast. CONDITION AT DISCHARGE: Stable. The patient tolerated the procedure well, had no complications. MARCOS CH MD DR: JERE/bere JOB#: [id number] / [id number]
== END | disposition home or self-care (01) ==
LOC: PNCL 09:33
PROVIDERS: ATTEND Anesthesiology
DX: M51.16 Intervertebral disc disorders with radiculopathy, lumbar region (principal); M46.1 Sacroiliitis, not elsewhere classified; M50.10 Cervical disc disorder with radiculopathy, unspecified cervical region
CPT/HCPCS: 62323; J1030; J1040; J2001; Q9965

== ENCOUNTER → 2018-03-25 | Outpatient (CLI) | payer BC ==
[2017-09-29 08:46] VITALS: BP 115/65
[~2018-03-25] MED LIST changes: -IOHEXOL 180 MG/ML 10 ML VIAL. ONE; -LIDOCAINE 2% PF 2ML VIAL. ONE; -methylPREDNISolone ACETATE 40 MG/ML VIAL. ONE; -methylPREDNISolone ACETATE 80 MG/ML VIAL. ONE
--- NOTE | 2018-03-25 15:37 | RAD ---
EXAM: Chest, 2 views. HISTORY: Cough. Shortness of air. COMPARISON: CT dated 09/27/2017. FINDINGS: Frontal and lateral views of chest are obtained. There is mild increased interstitial opacity without focal infiltrate or congestion. The heart is normal in size. The previously demonstrated right pleural effusion is no longer seen. There is a small nodular opacity overlying the left mid thorax which may be due to the previously demonstrated small cavitary lesion. There are calcified granulomas. IMPRESSION: 1. No acute pulmonary finding. 2. Small nodular opacity overlying the left mid thorax possibly due to a residual component of a cavitary lesion demonstrated on the prior CT dated 09/28/2017. Electronically signed by: Gardenia Rich MD (03/25/2018 3:34 PM) [place] [id number]
== END | disposition home or self-care (01) ==
LOC: RAD 14:14
PROVIDERS: ATTEND Physician Assistant Medical
DX: J44.1 Chronic obstructive pulmonary disease with (acute) exacerbation (principal); J20.9 Acute bronchitis, unspecified; J84.10 Pulmonary fibrosis, unspecified; R91.8 Other nonspecific abnormal finding of lung field; I25.2 Old myocardial infarction; I11.0 Hypertensive heart disease with heart failure; I50.22 Chronic systolic (congestive) heart failure; E11.9 Type 2 diabetes mellitus without complications; E66.9 Obesity, unspecified; E80.0 Hereditary erythropoietic porphyria; E03.9 Hypothyroidism, unspecified; K21.9 Gastro-esophageal reflux disease without esophagitis; Z86.711 Personal history of pulmonary embolism; Z87.01 Personal history of pneumonia (recurrent); Z86.718 Personal history of other venous thrombosis and embolism; Z87.891 Personal history of nicotine dependence; Z68.42 Body mass index [BMI] 45.0-49.9, adult; Z80.1 Family history of malignant neoplasm of trachea, bronchus and lung
CPT/HCPCS: 71046

== ENCOUNTER 2018-04-28 18:06 | Emergency (ER) | payer BC ==
[~2018-04-28] VITALS: Ht 185.4 cm; Wt 159.2 kg
[2018-04-28] MEDS ORDERED: HYOSCYAMINE 0.125 MG TAB.RAPDIS PO STA (18:33)
[2018-04-28] MEDS ORDERED: ONDANSETRON PF 4 MG/2 ML VIAL. IV ONE (18:45)
[2018-04-28 18:55] LABS: BASO # 0.1 x10^3/uL (0.0-0.2); BASO % 1 % (0-3); EOS # 0.2 x10^3/uL (0.0-0.7); EOS % 2 % (0-3); HEMOGLOBIN 15.1 g/dL (13.0-17.5); LYMPH # 3.3 x10^3/uL (1.0-4.8); LYMPH % 28 % (24-48); MEAN CORPUSCULAR HEMOGLOBIN 31 pg (25-35); MEAN CORPUSCULAR HGB CONC 34 g/dL (31-37); MEAN CORPUSCULAR VOLUME 91 fL (79-100); MONO # 0.7 x10^3/uL (0.0-1.1); MONO % 6 % (0-9); NEUT # 7.2 x10^3uL (1.8-7.7); NEUT % 62 % (31-73); PLATELET COUNT 330 x10^3/uL (140-400); RED BLOOD COUNT 4.85 x10^6/uL (4.30-5.70); RED CELL DISTRIBUTION WIDTH 14.3 % (11.5-14.5); WHITE BLOOD COUNT 11.5 x10^3/uL (4.0-11.0)
[2018-04-28 19:05] LABS: PROTHROMBIN TIME PATIENT 13.7 SEC (11.7-14.0)
[2018-04-28 19:08] LABS: CALCIUM 8.9 mg/dL (8.5-10.1); CREATININE 1.2 mg/dL (0.7-1.3); GFR 64.4
[2018-04-28 19:13] LABS: ALBUMIN 3.5 g/dL (3.4-5.0); ALBUMIN/GLOBULIN RATIO 0.7 (1.0-1.7); TOTAL BILIRUBIN 0.3 mg/dL (0.2-1.0); TOTAL PROTEIN 8.4 g/dL (6.4-8.2)
[2018-04-28 19:14] LABS: BILIRUBIN,URINE SMALL (NEG); CLARITY,URINE CLEAR; COLOR,URINE AMBER; NITRITE,URINE NEGATIVE (NEG); PH,URINE 5.5; PROTEIN,URINE 30 mg/dL (NEG-TRACE); UROBILINOGEN,URINE 0.2 mg/dL (0.2 mg/dL)
[2018-04-28] MEDS ORDERED: IOHEXOL 300 MG/ML 100ML VIAL. IV ONE (19:15)
[2018-04-28 19:19] LABS: BACTERIA,URINE 0 /HPF (0-FEW); HYALINE CASTS, URINE MANY /HPF; RBC,URINE 0 /HPF (0-2); SQUAMOUS EPITHELIAL CELL,UR OCC /LPF
[2018-04-28] MEDS ORDERED: CONTRAST GIVEN. MC PRN (19:30)
--- NOTE | 2018-04-28 19:57 | RAD ---
CT Abdomen and Pelvis With Intravenous Contrast: History: Nausea, diarrhea, abdominal pain for 2 weeks. Comparison: None. Technique: After administration of intravenous contrast, 75 mL Omnipaque-300, CT of the abdomen and pelvis was performed. Exposure: One or more of the following individualized dose reduction techniques were utilized for this examination: 1. Automated exposure control 2. Adjustment of the mA and/or kV according to patient size 3. Use of iterative reconstruction technique Findings: Evaluation of enteric structures may be limited by lack of oral contrast. Fatty liver disease is seen. Calcified splenic granulomata are present. Pancreas, gallbladder, and bilateral adrenal glands are unremarkable. Bilateral kidneys enhance symmetrically. Mild aortic atherosclerosis is seen. No bowel obstruction or inflammation is identified. Appendix is without evidence of inflammation. Colonic diverticulosis is noted, but no diverticulitis appreciated. Urinary bladder is unremarkable. No free air or free fluid is seen in the abdomen or pelvis. Small bilateral fat-containing inguinal hernias are seen. No free air or free fluid is seen in the abdomen or pelvis. Impression: 1. No acute abnormality identified in the abdomen or pelvis. Electronically signed by: Driss Luu MD (04/28/2018 7:54 PM) [facility]
[2018-04-28 20:00] VITALS: BP 141/68
--- NOTE | 2018-04-28 20:23 | PHYS DOC ---
Past Medical History Past Medical History: Asthma, COPD, Diabetes-Type II, High Cholesterol, Hypertension, [place] Additional Past Medical Histor: PE, SEPSIS, PNEUMONIA Past Surgical History: Other Additional Past Surgical Histo: BILATERAL SHOULDER,CARDIAC CATH Additional Information: 1 ppd Alcohol Use: None Drug Use: None Adult General Chief Complaint Chief Complaint: ABDOMINAL PAIN HPI HPI Patient is a 47 year old [f__sex] who presents with [diffuse crampy abdominal pain and diarrhea for the past week. Patient notes that he had black stools however that was after taking Pepto-Bismol for the abdominal discomfort and diarrhea. Patient notes some nausea, no vomiting. Noted that he had some chest pain yesterday that radiated up from his abdomen that lasted between 30 and 60 minutes. There was no nausea with that chest discomfort, no diaphoresis. And no worsening with exertion. Patient reports that he is having a bowel movement about every 30 minutes. Patient reports his blood sugar has been doing well.] Review of Systems Review of Systems Constitutional: Denies fever or chills [] Eyes: Denies change in visual acuity, redness, or eye pain [] HENT: Denies nasal congestion or sore throat [] Respiratory: Denies cough or shortness of breath [] Cardiovascular: No chest pain or palpitations[] GI: See history of present illness[] : Denies dysuria or hematuria [] Musculoskeletal: Denies back pain or joint pain [] Integument: Denies rash or skin lesions [] Neurologic: Denies headache, focal weakness or sensory changes [] Endocrine: Denies polyuria or polydipsia [] All other systems were reviewed and found to be within normal limits, except as documented in this note. Current Medications Current Medications Current Medications Medications (Trade) Dose Ordered Sig/[facility] Start Time Stop Time Status Last Admin Dose Admin Hyoscyamine (Anaspaz) 0.125 mg 1X STAT 04/28/18 18:33 04/28/18 18:40 DC 04/28/18 19:21 0.125 MG Info (CONTRAST GIVEN -- Rx MONITORING) 1 each PRN DAILY PRN 04/28/18 19:30 04/30/18 19:29 Iohexol (Omnipaque 300 Mg/ml) 75 ml 1X ONCE 04/28/18 19:15 04/28/18 19:16 DC 04/28/18 19:43 75 ML Ondansetron HCl (Zofran) 4 mg 1X ONCE 04/28/18 18:45 04/28/18 18:46 DC 04/28/18 19:21 4 MG Allergies Allergies Allergies Coded Allergies Type Severity Reaction Last Updated Verified No Known Drug Allergies 07/15/17 No Physical Exam Physical Exam Constitutional: Well developed, well nourished, no acute distress, non-toxic appearance. [] HENT: Normocephalic, atraumatic, bilateral external ears normal, oropharynx moist, no oral exudates, nose normal. [] Eyes: PERRLA, EOMI, conjunctiva normal, no discharge. [] Neck: Normal range of motion, no tenderness, supple, no stridor. [] Cardiovascular:Heart rate regular rhythm, no murmur [] Lungs & Thorax: Bilateral breath sounds clear to auscultation [] Abdomen: Bowel sounds increased, soft, no tenderness, no masses, no pulsatile masses. [] Skin: Warm, dry, no erythema, no rash. [] Back: No tenderness, no CVA tenderness. [] Extremities: No tenderness, no cyanosis, no clubbing, ROM intact, no edema. [] Neurologic: Alert and oriented X 3, normal motor function, normal sensory function, no focal deficits noted. [] Psychologic: Affect normal, judgement normal, mood normal. [] Current Patient Data Vital Signs Vital Signs Date Time Temp Pulse Resp B/P (MAP) Pulse Ox O2 Delivery O2 Flow Rate FiO2 04/28/18 18:28 98.3 87 18 124/88 (100) 97 Room Air 98.3 Lab Values Laboratory Tests Test 04/28/18 18:37 04/28/18 19:02 White Blood Count 11.5 x10^3/uL (4.0-11.0) H Red Blood Count 4.85 x10^6/uL (4.30-5.70) Hemoglobin 15.1 g/dL (13.0-17.5) Hematocrit 44.0 % (39.0-53.0) Mean Corpuscular Volume 91 fL (79-100) Mean Corpuscular Hemoglobin 31 pg (25-35) Mean Corpuscular Hemoglobin Concent 34 g/dL (31-37) Red Cell Distribution Width 14.3 % (11.5-14.5) Platelet Count 330 x10^3/uL (140-400) Neutrophils (%) (Auto) 62 % (31-73) Lymphocytes (%) (Auto) 28 % (24-48) Monocytes (%) (Auto) 6 % (0-9) Eosinophils (%) (Auto) 2 % (0-3) Basophils (%) (Auto) 1 % (0-3) Neutrophils # (Auto) 7.2 x10^3uL (1.8-7.7) Lymphocytes # (Auto) 3.3 x10^3/uL (1.0-4.8) Monocytes # (Auto) 0.7 x10^3/uL (0.0-1.1) Eosinophils # (Auto) 0.2 x10^3/uL (0.0-0.7) Basophils # (Auto) 0.1 x10^3/uL (0.0-0.2) Prothrombin Time 13.7 SEC (11.7-14.0) Prothrombin Time INR 1.1 (0.8-1.1) PTT 35 SEC (24-38) Sodium Level 133 mmol/L (136-145) L Potassium Level 4.0 mmol/L (3.5-5.1) Chloride Level 98 mmol/L (98-107) Carbon Dioxide Level 22 mmol/L (21-32) Anion Gap 13 (6-14) Blood Urea Nitrogen 15 mg/dL (8-26) Creatinine 1.2 mg/dL (0.7-1.3) Estimated GFR (Cockcroft-Gault) 64.4 BUN/Creatinine Ratio 13 (6-20) Glucose Level 234 mg/dL (70-99) H Calcium Level 8.9 mg/dL (8.5-10.1) Total Bilirubin 0.3 mg/dL (0.2-1.0) Aspartate Amino Transferase (AST) 27 U/L (15-37) Alanine Aminotransferase (ALT) 39 U/L (16-63) Alkaline Phosphatase 100 U/L (46-116) Troponin I Quantitative < 0.017 ng/mL (0.000-0.055) Total Protein 8.4 g/dL (6.4-8.2) H Albumin 3.5 g/dL (3.4-5.0) Albumin/Globulin Ratio 0.7 (1.0-1.7) L Lipase 130 U/L (73-393) Urine Collection Type Unknown Urine Color Lara Urine Clarity Clear Urine pH 5.5 Urine Specific [place] >=1.030 Urine Protein 30 mg/dL (NEG-TRACE) Urine Glucose (UA) 100 mg/dL (NEG) Urine Ketones (Stick) Trace mg/dL (NEG) Urine Blood Negative (NEG) Urine Nitrite Negative (NEG) Urine Bilirubin Small (NEG) Urine Urobilinogen Dipstick 0.2 mg/dL (0.2 mg/dL) Urine Leukocyte Esterase Negative (NEG) Urine RBC 0 /HPF (0-2) Urine WBC 5-10 /HPF (0-4) Urine Squamous Epithelial Cells Occ /LPF Urine Bacteria 0 /HPF (0-FEW) Urine Hyaline Casts Many /HPF Urine Mucus Marked /LPF Laboratory Tests 04/28/18 18:37 Laboratory Tests 04/28/18 18:37 EKG EKG [EKG shows a normal sinus rhythm with an occasional PVC. No ST elevations. [place] of -138.] Radiology/Procedures Radiology/Procedures CT scan of the abdomen and pelvis shows no acute abnormality.[] Course & Med Decision Making Course & Med Decision Making Pertinent Labs and Imaging studies reviewed. (See chart for details) [ED course patient arrived and was placed in bed. Patient tolerates exam well. Patient was given IV fluids as well as medicine help with the discomfort which did improve his discomfort. At the time of this dictation labs for the stool cultures and ova and parasites are pending.] Dragon Disclaimer Dragon Disclaimer This electronic medical record was generated, in whole or in part, using a voice recognition dictation system. Departure Departure Impression: Primary Impression: Abdominal pain Additional Impression: Diarrheal disease Disposition: 01 HOME, SELF-CARE Condition: GOOD Referrals: KEIKO DIAZ MD (PCP) Patient Instructions: Diarrhea, Diet for Diarrhea, Adult Additional Instructions: Drink plenty of fluids. Eat a diet rich in carbohydrates, avoid fatty foods, milk, and pepper. He may add yogurt and kefir to help recolonize the good bacteria in your gut. Follow up with your regular doctor in 2 days. Return to the ER if any concerns. Scripts Hyoscyamine Sulfate (LEVSIN) 0.125 Mg Tablet 1 TAB PO TID, #30 TAB 1 Refill Prov: TITISERJIOLING DO 04/28/18 Problem Qualifiers Primary Impression: Abdominal pain Abdominal location: generalized Qualified Codes: R10.84 - Generalized abdominal pain [place] DO Apr 28, 2018 20:23
[2018-04-28] MEDS ORDERED: HYOS0.1264 PO (20:28)
--- NOTE | 2018-04-29 06:11 | EKG ---
[facility] [address] [place] [address] Test Date: 2018-04-28 Test Time: 19:11:14 Pat Name: ANABEL VALDIVIA Department: Room: Gender: M Investor: : 1970 Requested By: [place] Order Number: [id number] Reading MD: Nirmal Camacho MD Measurements Intervals [place] Rate: 91 P: 90 NC: 128 QRS: -138 QRSD: 98 T: 56 QT: 376 QTc: 464 Interpretive Statements SINUS RHYTHM LIMB LEAD MISPLACEMENT NON-SPECIFIC ST/T CHANGES PVC Electronically Signed On 04-30-2018 13:44:44 CDT by Nirmal Camacho MD
== END 2018-04-28 20:30 | disposition home or self-care (01) ==
LOC: ER 18:06
DX: R10.84 Generalized abdominal pain (principal); R19.7 Diarrhea, unspecified; R11.0 Nausea; E11.9 Type 2 diabetes mellitus without complications; J44.9 Chronic obstructive pulmonary disease, unspecified; E78.00 Pure hypercholesterolemia, unspecified; I10 Essential (primary) hypertension; I25.2 Old myocardial infarction; F17.200 Nicotine dependence, unspecified, uncomplicated
CPT/HCPCS: 36415; 74177; 80053; 81001; 83690; 84484; 85025; 85610; 85730; 87086; 87177; 93005; 96374; 99285; J2405; Q9967

== ENCOUNTER → 2018-08-23 | Outpatient (CLI) | payer BC ==
[~2018-08-23] MED LIST changes: -GABA-586 PO; +GABA300C18 PO; -GABA600T2 PO; +GABA600T7 PO; -HYDR-2766 PO; +HYDR-2769 PO; +HYDR-3135 PO; -HYDR-963 PO; +HYOS0.1264 PO; -OXYC-323 PO; +OXYC1TAB15 PO
--- NOTE | 2018-08-23 14:59 | RAD ---
MRI study of the left shoulder without contrast Clinical indications: Left shoulder pain for 2 months. History of rotator cuff surgery. TECHNIQUE: Noncontrast MRI sequences of the left shoulder were performed in all 3 planes. COMPARISON: None available. FINDINGS: There is a defect of the lateral aspect of the humeral head secondary to previous rotator cuff repair surgery. A surgical screw is seen extending through the anterior lateral aspect of the greater tubercle. There is increased signal within the supraspinatus tendon and to a lesser extent the infraspinatus tendon consistent with tendinosis. There is a small full-thickness tear seen involving the lateral aspect of the supraspinatus tendon. However no large fluid gap is seen. This is seen best on image 14 and series 16. There is a small amount of fluid within the subdeltoid and subacromial bursa. The subscapularis tendon is intact. The tendon of the long head of the biceps is intact. There is moderate degenerative osteoarthritis and spurring of the AC joint. There is spurring of the lateral inferior edge of the acromial process. A type III acromial process is seen. These findings may impinge the acromial humeral space. No fracture or marrow infiltrative process is seen otherwise. The glenohumeral joint is unremarkable and no joint effusion is seen. No loose body is evident. The glenoid labrum is intact. No paralabral ganglion cyst or spinoglenoid notch ganglion cyst is evident. IMPRESSION: Rotator cuff repair surgery. Tendinosis of the supraspinatus and infraspinatus tendons. There is a small full-thickness tear of the lateral aspect of the supraspinatus tendon approximately 2 cm proximal to the footplate of the greater tubercle. This may be confirmed with MRI arthrography. Electronically signed by: Emanuel Avila MD (08/23/2018 2:57 PM) [facility]-[id number]
== END | disposition home or self-care (01) ==
LOC: MRI 15:07
PROVIDERS: ATTEND Physician Assistant Medical
DX: M75.102 Unspecified rotator cuff tear or rupture of left shoulder, not specified as traumatic (principal); M19.012 Primary osteoarthritis, left shoulder; Z98.890 Other specified postprocedural states
CPT/HCPCS: 73221

== ENCOUNTER → 2018-09-22 | Outpatient (CLI) | payer BC ==
--- NOTE | 2018-09-22 10:17 | KCIC ---
EXAM: Cervical spine MRI without contrast. HISTORY: Shoulder pain. TECHNIQUE: Multiplanar, multisequence magnetic resonance imaging of the cervical spine was performed without contrast. COMPARISON: 07/07/2017 FINDINGS: There is straightening of cervical lordosis. There is no significant listhesis. The vertebral bodies are normal in height. There is no suspicious osseous lesion. There is no acute or subacute fracture. No spinal cord lesion is seen. The skull base and posterior fossa are unremarkable. At C2-C3, there is a left posterior lateral disc osteophyte complex. There is mild left uncovertebral arthropathy. There is moderate left foraminal stenosis. At C3-C4, there is minimal endplate remodeling. There is no stenosis. At C4-C5, there is minimal endplate remodeling. There is no stenosis. At C5-C6, there is is a left posterior lateral disc osteophyte complex. There is mild left facet arthropathy. There is left uncovertebral arthropathy. There is severe left foraminal stenosis. At C6-C7, there are bilateral posterior lateral disc osteophyte complexes superimposed on a disc bulge and endplate remodeling. There is mild left greater than right facet arthropathy. There is bilateral uncovertebral arthropathy. There is mild right and moderate to severe left foraminal stenosis. IMPRESSION: Multilevel degenerative change within the cervical spine, described in detail above. This results in suspected moderate left foraminal stenosis at C2-C3, severe left foraminal stenosis at C5-C6, and mild right and moderate to severe left foraminal stenosis at C6-C7. Electronically signed by: Gardenia Rich MD (09/22/2018 10:14 AM) [facility]-KCIC1
== END | disposition home or self-care (01) ==
LOC: KCIC MRI 09:04
PROVIDERS: ATTEND Orthopaedic Surgery
DX: M48.02 Spinal stenosis, cervical region (principal); M47.812 Spondylosis without myelopathy or radiculopathy, cervical region; M12.88 Other specific arthropathies, not elsewhere classified, other specified site; M25.78 Osteophyte, vertebrae; M40.292 Other kyphosis, cervical region; M25.512 Pain in left shoulder
CPT/HCPCS: 72141

== ENCOUNTER → 2019-05-25 | Outpatient (CLI) | payer BC ==
[~2019-05-25] MED LIST changes: -GLIM2TAB2 PO; +GLIM2TAB3 PO; -GLIM4TAB2 PO; +GLIM4TAB4 PO; -MELA3TAB2 PO; +MELA3TAB56 PO; +OMEP40CA45 PO; -OMEP40CA5 PO
--- NOTE | 2019-05-25 09:11 | RAD ---
CT of the chest without contrast 05/25/2019 INDICATION: Pulmonary nodule. COMPARISON STUDY: CT angiography of the chest September 28, 2017. TECHNIQUE: Multidetector CT imaging of the chest was performed without the administration of IV contrast. FINDINGS: Heart size is normal. No pericardial effusion is identified. Coronary calcification noted. No pathologically enlarged mediastinal lymphadenopathy is seen. No pneumothorax, pleural effusion, or focal consolidative infiltrate is identified. Previously seen groundglass infiltrates throughout the bilateral lungs have resolved. Cavitary nodule in the left lower lobe is resolved. Calcified mediastinal lymphadenopathy is seen in the right hilum. Calcified granulomas noted in the right upper lobe. No noncalcified or concerning pulmonary nodules are identified. Limited visualization of the upper abdomen demonstrates evidence of prior granulomatous disease involving the spleen. No acute osseous changes are identified. IMPRESSION: 1.No evidence of acute cardiopulmonary process. No concerning pulmonary nodules. 2. Resolution of previously seen groundglass infiltrates and cavitary nodule left lower lobe. CT DOSING PQRS STATEMENT: One or more of the following individualized dose reduction techniques were utilized for this examination: 1. Automated exposure control 2. Adjustment of the mA and/or kV according to patient size 3. Use of iterative reconstruction technique Electronically signed by: Alireza Ragsdale MD (05/25/2019 9:08 AM) [facility]-[id number]
== END | disposition home or self-care (01) ==
LOC: CT 07:52
PROVIDERS: ATTEND Physician Assistant Medical
DX: J84.10 Pulmonary fibrosis, unspecified (principal); I25.10 Atherosclerotic heart disease of native coronary artery without angina pectoris; R59.0 Localized enlarged lymph nodes; D71 Functional disorders of polymorphonuclear neutrophils
CPT/HCPCS: 71250

== ENCOUNTER 2019-07-17 20:02 | Emergency (ER) | payer BC ==
[~2019-07-17 20:02] MED LIST changes: -GLIM2TAB3 PO; +GLIM2TAB7 PO; -GLIM4TAB4 PO; +GLIM4TAB8 PO
== END 2019-07-17 20:25 | disposition left against medical advice (07) ==
LOC: ER 20:02
DX: R06.02 Shortness of breath (principal); Z53.21 Procedure and treatment not carried out due to patient leaving prior to being seen by health care provider

== ENCOUNTER 2020-03-09 17:22 | Emergency (ER) | payer BC ==
[~2020-03-09] VITALS: Ht 185.4 cm; Wt 139.0 kg
[~2020-03-09 17:22] MED LIST changes: +MELA3TAB4 PO; -MELA3TAB56 PO
[2020-03-09] MEDS ORDERED: FAMOTIDINE 20 MG/2 ML VIAL IVP ONE ×2 (18:00→20:00)
--- NOTE | 2020-03-09 18:03 | PHYS DOC ---
Past Medical History Past Medical History: Asthma, COPD, Diabetes-Type II, High Cholesterol, H ypertension, PR Additional Past Medical Histor: PE, SEPSIS, PNEUMONIA (JACKSON REED DO) Past Surgical History: Other Additional Past Surgical Histo: BILATERAL SHOULDER,CARDIAC CATH (JACKSON REED DO) Smoking Status: Current Every Day Smoker Alcohol Use: None Drug Use: None (JACKSON REED DO) General Adult EDM: Chief Complaint: ABDOMINAL PAIN HPI: HPI: 49-year-old male past medical history of obesity with gastric sleeve in September 2019, diabetes, hypertension, hyperlipidemia, anxiety, GERD and tobacco dependence, presents to the ED with complaints of upper and lower midline sharp nonradiating abdominal pain for the past 3 days with associated nausea, nonbloody nonbilious vomiting and loose watery diarrhea for the past 3 days stating" I am worried it is an ulcer. (Was told if he continued to smoke tobacco after his gastric sleeve with [facility] bariatrics that he might develop a gastric ulcer.)" Only PSH is a gastric sleeve. Last bowel movement was 1 hour prior to arrival. Is on any anticoagulants, takes no routine NSAIDs. No known sick contacts. No h/o GIB or blood transfusion. ROS: Denies associated fever, chills, cough, sore throat, headache, neck stiffness, melena, hematochezia, hematemesis, hemoptysis, unilateral leg swelling, rash, flank pain, hematuria, chest pressure/tearing/ripping pain, dyspnea, diaphoresis, lightheadedness/dizziness, or other concerning sxs. (DOMINGOJACKSON DO) Allergies: Allergies: Allergies Coded Allergies Type Severity Reaction Last Updated Verified No Known Drug Allergies 07/15/17 No ([facility] Physical Exam: PE: Constitutional: Well developed, well nourished, no acute distress, HENT: Normocephalic, atraumatic, bilateral external ears normal, oropharynx moist, no oral exudates, nose normal. [] Eyes: EOMI, conjunctiva normal, no discharge. [] Neck: Normal range of motion, no tenderness, supple, no stridor. [] Cardiovascular:Heart rate regular rhythm, no murmur [] Lungs & Thorax: Bilateral breath sounds clear to auscultation [] Abdomen: Bowel sounds normal, soft, no tenderness, no masses, no pulsatile masses. [] Skin: Warm, dry, no erythema, no rash. [] Back: No tenderness, no CVA tenderness. [] Extremities: No tenderness, no cyanosis, no clubbing, ROM intact, no edema. [] Neurologic: Alert and oriented X 3, normal motor function, normal sensory function, no focal deficits noted. [] Psychologic: Affect normal, judgement normal, slightly anxious ([facility],JACKSON Gregg DO) Current Patient Data: Labs: Laboratory Tests Test 03/09/20 17:35 03/09/20 17:55 Urine Collection Type Unknown Urine Color Yellow Urine Clarity Clear Urine pH 7.5 Urine Specific [place] 1.020 Urine Protein Negative mg/dL Urine Glucose (UA) Negative mg/dL Urine Ketones (Stick) Negative mg/dL Urine Blood Negative Urine Nitrite Negative Urine Bilirubin Negative Urine Urobilinogen Dipstick 0.2 mg/dL Urine Leukocyte Esterase Negative Urine RBC 1-2 /HPF Urine WBC 1-4 /HPF Urine Squamous Epithelial Cells Few /LPF Urine Bacteria Few /HPF Urine Hyaline Casts Occasional /HPF Urine Mucus Mod /LPF White Blood Count 14.4 x10^3/uL Red Blood Count 4.36 x10^6/uL Hemoglobin 13.9 g/dL Hematocrit 40.3 % Mean Corpuscular Volume 92 fL Mean Corpuscular Hemoglobin 32 pg Mean Corpuscular Hemoglobin Concent 34 g/dL Red Cell Distribution Width 13.9 % Platelet Count 466 x10^3/uL Neutrophils (%) (Auto) 81 % Lymphocytes (%) (Auto) 14 % Monocytes (%) (Auto) 4 % Eosinophils (%) (Auto) 0 % Basophils (%) (Auto) 1 % Neutrophils # (Auto) 11.7 x10^3/uL Lymphocytes # (Auto) 2.0 x10^3/uL Monocytes # (Auto) 0.6 x10^3/uL Eosinophils # (Auto) 0.0 x10^3/uL Basophils # (Auto) 0.1 x10^3/uL Sodium Level 137 mmol/L Potassium Level 4.2 mmol/L Chloride Level 98 mmol/L Carbon Dioxide Level 29 mmol/L Anion Gap 10 Blood Urea Nitrogen 13 mg/dL Creatinine 1.0 mg/dL Estimated GFR (Cockcroft-Gault) 78.8 BUN/Creatinine Ratio 13 Glucose Level 161 mg/dL Calcium Level 10.4 mg/dL Total Bilirubin 0.3 mg/dL Aspartate Amino Transf (AST/SGOT) 15 U/L Alanine Aminotransferase (ALT/SGPT) 19 U/L Alkaline Phosphatase 102 U/L Troponin I Quantitative < 0.017 ng/mL Total Protein 7.3 g/dL Albumin 3.1 g/dL Albumin/Globulin Ratio 0.7 Lipase 134 U/L Current Medications Medications (Trade) Dose Ordered Sig/Darrius Route PRN Reason Start Time Stop Time Status Last Admin Dose Admin Famotidine (Pepcid Vial) 20 mg 1X ONCE IVP 03/09/20 18:00 03/09/20 18:01 DC 03/09/20 18:12 Iohexol (Omnipaque 240 Mg/ml) 60 ml 1X ONCE IT 03/09/20 18:30 03/09/20 18:32 DC Iohexol (Omnipaque 300 Mg/ml) 75 ml 1X ONCE IV 03/09/20 18:30 03/09/20 18:32 DC Info (CONTRAST GIVEN -- Rx MONITORING) 1 each PRN DAILY PRN MC SEE COMMENTS 03/09/20 18:45 03/11/20 18:44 Famotidine (Pepcid Vial) 20 mg 1X ONCE IVP 03/09/20 20:00 03/09/20 20:01 DC 03/09/20 19:59 Pantoprazole Sodium (PROTONIX VIAL for IV PUSH) 40 mg 1X ONCE IVP 03/09/20 20:00 03/09/20 20:01 DC 03/09/20 20:00 (XOCHITL CATALAN DO) EKG: EKG: [] (JACKSON REED DO) Radiology/Procedures: Radiology/Procedures: [] (JACKSON REED DO) Radiology/Procedures: [facility] [address] [place] [address] IMAGING REPORT Signed PATIENT: ANABEL VALDIVIA ACCOUNT: [id number] : 1970 LOCATION: ER AGE: 49 SEX: M EXAM STATUS: REG ER ORD. PHYSICIAN: JACKSON REED DO REASON: upper/lower abd pain, OMNI 300, 75 ML IV, OMNI 240, 30 ML PO PROCEDURE: CT ABD PELV W/ORAL&IV CONTRAST Examination: CT of the abdomen pelvis with oral and IV contrast History :upper abdominal pain COMPARISON: None available TECHNIQUE: Axial CT images of the abdomen and pelvis were performed with oral and IV contrast and coronal sagittal reformats performed Exposure: One or more of the following individualized dose reduction techniques were utilized for this examination: 1. Automated exposure control 2. Adjustment of the mA and/or kV according to patient size 3. Use of iterative reconstruction technique FINDINGS: The bibasilar lungs are clear. No evidence of free air identified in the abdomen The liver, adrenals grossly appears unremarkable. Few calcified splenic granulomas identified. Surgical changes identified in the stomach with fat stranding identified about the stomach. The visualized pancreas grossly appears unremarkable. The small bowel is nondilated. The appendix is normal. Feces and gas noted in the colon The bilateral kidneys enhance symmetrically. Urinary bladder is mildly distended The bilateral kidneys enhance symmetrically. Mild degenerative changes thoracolumbar spine. IMPRESSION: 1. Fat stranding identified about the stomach with surgical changes could be secondary to recent surgery or gastritis or inflammatory changes. Correlate clinically. Electronically signed by: Mu Perla MD (03/09/2020 7:53 PM) [id number] DICTATED and SIGNED BY: MU PERLA MD DATE: 03/09/201952 (XOCHITL CATALAN DO) Course & Med Decision Making: Course & Med Decision Making Pertinent Labs and Imaging studies reviewed. (See chart for details) Patient seen and evaluated on ED presentation. Labs and imaging are pending. IV Pepcid was ordered. Due to shift change patient was signed out to Dr. Abe champagne for further disposition. (JACKSON REED DO) Course & Med Decision Making I have received signout on the patient's emergency department care from Dr. Reed. We discussed the history, physical exam findings, completed and pending laboratory results and imaging studies. We have also discussed the current treatment plan and expected clinical course. Please refer to further update notes for additional information regarding the patient's final diagnosis and disposition. In brief patient is a 49-year-old male history of gastric sleeve surgery who presents with complaint of epigastric discomfort. He does tell me the pain is worse when he lays flat. He is mostly concerned that he has a peptic ulcer that could have perforated. Initial vital signs unremarkable. CT imaging does show some nonspecific inflammatory changes around the stomach. This could be related to gastritis. No signs of acute surgical emergency. Labs grossly unremarkable. Urine without evidence of infection. LFTs within normal limits. Lipase within normal limits. Lactic acid normal. Patient did get some relief with dyspepsia medication. Encouraged him to sit upright as he does state laying flat makes his symptoms worse. Has been to tolerate p.o. He states he will follow-up with his bariatric surgeon for potential EGD in the near future. He was given strict 12 to 24-hour return precautions. Patient and both expressed understanding. He will be discharged home with a course of Pepcid. Stable for discharge. (XOCHITL CATALAN DO) Dragon Disclaimer: Amber Disclaimer: This electronic medical record was generated, in whole or in part, using a voice recognition dictation system. (JACKSON REED DO) Departure Departure Impression: Primary Impression: Abdominal pain Qualified Codes: R10.13 - Epigastric pain Disposition: 01 HOME, SELF-CARE Condition: GOOD Referrals: KEIKO DIAZ MD (PCP) Patient Instructions: Heartburn Additional Instructions: Please return the emergency department the next 12 to 24 hours should your symptoms not improve or worsen. Please follow-up with your bariatric surgeon in the next week. Scripts Famotidine (PEPCID) 20 Mg Tablet 20 MG PO HS for 14 Days, #14 TAB Prov: XOCHITL CATALAN DO 03/09/20 Justicifation of Admission Dx: Justifications for Admission: Justification of Admission Dx: N/A (JACKSON REED DO) Justification of Admission Dx: N/A (XOCHITL CATALAN DO) JACKSON REED DO Mar 09, 2020 18:03 XOCHITL CATALAN DO Mar 09, 2020 20:10
[2020-03-09 18:09] LABS: BASO # 0.1 x10^3/uL (0.0-0.2); BASO % 1 % (0-3); EOS % 0 % (0-3); HEMATOCRIT 40.3 % (39.0-53.0); HEMOGLOBIN 13.9 g/dL (13.0-17.5); LYMPH % 14 % (24-48); MEAN CORPUSCULAR HEMOGLOBIN 32 pg (25-35); MEAN CORPUSCULAR HGB CONC 34 g/dL (31-37); MEAN CORPUSCULAR VOLUME 92 fL (79-100); MONO # 0.6 x10^3/uL (0.0-1.1); MONO % 4 % (0-9); NEUT # 11.7 x10^3/uL (1.8-7.7); NEUT % 81 % (31-73); PLATELET COUNT 466 x10^3/uL (140-400); RED BLOOD COUNT 4.36 x10^6/uL (4.30-5.70); RED CELL DISTRIBUTION WIDTH 13.9 % (11.5-14.5); WHITE BLOOD COUNT 14.4 x10^3/uL (4.0-11.0)
[2020-03-09 18:18] LABS: CALCIUM 10.4 mg/dL (8.5-10.1); GFR 78.8; POTASSIUM 4.2 mmol/L (3.5-5.1)
[2020-03-09 18:25] LABS: ALBUMIN 3.1 g/dL (3.4-5.0); ALBUMIN/GLOBULIN RATIO 0.7 (1.0-1.7); TOTAL BILIRUBIN 0.3 mg/dL (0.2-1.0); TOTAL PROTEIN 7.3 g/dL (6.4-8.2)
[2020-03-09] MEDS ORDERED: IOHEXOL 240 MG/ML 100 ML VIAL. IT ONE (18:30)
[2020-03-09] MEDS ORDERED: IOHEXOL 300 MG/ML 100ML VIAL. IV ONE (18:30)
[2020-03-09] MEDS ORDERED: CONTRAST GIVEN. MC PRN (18:45)
[2020-03-09 19:42] VITALS: BP 120/73
[2020-03-09 19:44] LABS: BILIRUBIN,URINE NEGATIVE (NEG); CLARITY,URINE CLEAR; COLOR,URINE YELLOW; NITRITE,URINE NEGATIVE (NEG); PH,URINE 7.5 (<5.0-8.0); PROTEIN,URINE NEGATIVE (NEG-TRACE); UROBILINOGEN,URINE 0.2 mg/dL (0.2 mg/dL)
--- NOTE | 2020-03-09 19:56 | RAD ---
Examination: CT of the abdomen pelvis with oral and IV contrast History :upper abdominal pain COMPARISON: None available TECHNIQUE: Axial CT images of the abdomen and pelvis were performed with oral and IV contrast and coronal sagittal reformats performed Exposure: One or more of the following individualized dose reduction techniques were utilized for this examination: 1. Automated exposure control 2. Adjustment of the mA and/or kV according to patient size 3. Use of iterative reconstruction technique FINDINGS: The bibasilar lungs are clear. No evidence of free air identified in the abdomen The liver, adrenals grossly appears unremarkable. Few calcified splenic granulomas identified. Surgical changes identified in the stomach with fat stranding identified about the stomach. The visualized pancreas grossly appears unremarkable. The small bowel is nondilated. The appendix is normal. Feces and gas noted in the colon The bilateral kidneys enhance symmetrically. Urinary bladder is mildly distended The bilateral kidneys enhance symmetrically. Mild degenerative changes thoracolumbar spine. IMPRESSION: 1. Fat stranding identified about the stomach with surgical changes could be secondary to recent surgery or gastritis or inflammatory changes. Correlate clinically. Electronically signed by: Mu Perla MD (03/09/2020 7:53 PM) [id number]
[2020-03-09 20:00] LABS: BACTERIA,URINE FEW /HPF (0-FEW); HYALINE CASTS, URINE OCCASIONAL /HPF; SQUAMOUS EPITHELIAL CELL,UR FEW /LPF
[2020-03-09] MEDS ORDERED: PANTOPRAZOLE IV PUSH 40 MG VIAL. IVP ONE (20:00)
[2020-03-09] MEDS ORDERED: FAMO-63 PO (20:09)
[2020-03-09] MEDS ORDERED: IOHEXOL 240 MG/ML 50ML VIAL. ONE (20:33)
--- NOTE | 2020-03-11 07:10 | EKG ---
[facility] [address] [place] [address] Test Date: 2020-03-09 Test Time: 18:03:01 Pat Name: ANABEL VALDIVIA Department: Room: Gender: M Pearler: : 1970 Requested By: JACKSON REED Order Number: [id number] Reading MD: Measurements Intervals [place] Rate: 81 P: 33 AL: 124 QRS: -42 QRSD: 104 T: 246 QT: 416 QTc: 484 Interpretive Statements SINUS RHYTHM ABNORMAL LEFT AXIS DEVIATION LEFT ANTERIOR FASCICULAR BLOCK QRS(T) CONTOUR ABNORMALITY CONSIDER ANTEROSEPTAL MYOCARDIAL DAMAGE T ABNORMALITY IN ANTERIOR LEADS PROLONGED QT ABNORMAL ECG RI6.02 No previous ECG available for comparison
== END 2020-03-09 20:40 | disposition home or self-care (01) ==
LOC: ER 17:22
DX: R10.13 Epigastric pain (principal); R19.7 Diarrhea, unspecified; R11.0 Nausea; J44.9 Chronic obstructive pulmonary disease, unspecified; E11.9 Type 2 diabetes mellitus without complications; E78.00 Pure hypercholesterolemia, unspecified; I10 Essential (primary) hypertension; I25.2 Old myocardial infarction; F17.200 Nicotine dependence, unspecified, uncomplicated; Z98.890 Other specified postprocedural states
CPT/HCPCS: 36415; 74177; 80053; 81001; 83605; 83690; 84484; 85025; 93005; 96374; 96375; 96376; 99285; C9113; J3490; Q9966; Q9967

== ENCOUNTER → 2020-07-22 | Outpatient (CLI) | payer OTHER ==
[~2020-07-22] MED LIST changes: +FAMO-63 PO
--- NOTE | 2020-07-23 13:54 | KCIC ---
EXAM: XR RIBS 2 VIEWS LT 07/22/2020 2:39 PM CLINICAL INDICATION: Fell 2 days ago, left mid and lateral rib pain. Hurts to breathe COMPARISON: CT chest abdomen and pelvis 03/09/2020 TECHNIQUE: AP and oblique views of the left ribs. FINDINGS: There are mildly displaced fractures of the left fifth, sixth, and seventh anterolateral r ibs. Old displaced fracture of the left 10th anterolateral rib. The left lung is clear. No pleural ef fusion or pneumothorax. IMPRESSION: Mildly displaced left anterolateral fifth, sixth, and seventh rib fractures. No pneumoth orax. Electronically signed by: Maddi Marie MD (07/23/2020 1:52 PM) [id number]
== END ==
LOC: KCIC 14:36
PROVIDERS: ATTEND Physician Assistant
DX: S22.42XA Multiple fractures of ribs, left side, initial encounter for closed fracture (principal); W19.XXXA Unspecified fall, initial encounter; Y93.89 Activity, other specified; Y92.89 Other specified places as the place of occurrence of the external cause; Y99.8 Other external cause status
CPT/HCPCS: 71100

== ENCOUNTER → 2020-10-01 | Outpatient (CLI) | payer OTHER ==
[~2020-10-01] MED LIST changes: -LISI-334 PO; +LISI10TA16 PO; -LISI10TA2 PO; +LISI20TA18 PO
--- NOTE | 2020-10-01 17:37 | KCIC ---
INDICATION: Reason: lower back pain, pain and numbness down bilateral legs / Spl. Instructions: / Hi story: COMPARISON: None. IMPRESSION: Lumbar spine: 5 views obtained. Degenerative changes of the spine are identified with facet hypertrop hy as well as osteophytes at the vertebral body endplates which can be seen with degenerative disc di sease. Repeat demonstration of mild superior endplate loss of height of L2 and T11. No definite acute fracture or dislocation. Calcific atherosclerosis. Electronically signed by: Torrey Parks MD (10/01/2020 5:34 PM) [id number]
== END ==
LOC: KCIC 15:31
PROVIDERS: ATTEND Physician Assistant Medical
DX: M47.816 Spondylosis without myelopathy or radiculopathy, lumbar region (principal); M51.36 Other intervertebral disc degeneration, lumbar region; M25.78 Osteophyte, vertebrae
CPT/HCPCS: 72110

== ENCOUNTER → 2021-01-21 | Outpatient (CLI) | payer OTHER ==
[~2021-01-21] MED LIST changes: -OMEP40CA45 PO; +OMEP40CA7 PO
--- NOTE | 2021-01-21 09:10 | KCIC ---
EXAM: Bilateral lower extremity arterial Doppler sonogram. HISTORY: Claudication. Cigarette smoking. Diabetes. Peripheral vascular disease. TECHNIQUE: Schwartz scale and color Doppler sonographic imaging of the lower extremity arteries spectral waveform analysis was performed. COMPARISON: None. FINDINGS: There are triphasic waveforms throughout the bilateral lower extremity arteries, with excep tion of a biphasic waveform within the right dorsalis pedis artery. There are upper normal peak systo lic velocities within the right common femoral and distal superficial femoral artery. There is no sabi vated peak systolic velocity to suggest hemodynamically significant stenosis. IMPRESSION: No Doppler evidence of hemodynamically significant stenosis or occlusion involving the lo wer extremity arteries. Electronically signed by: Gardenia Rich MD (01/21/2021 9:07 AM) [id number]
== END ==
LOC: KCIC US 07:51
PROVIDERS: ATTEND Physician Assistant Medical
DX: I73.9 Peripheral vascular disease, unspecified (principal)
CPT/HCPCS: 93925

== ENCOUNTER → 2021-05-06 | Outpatient (CLI) | payer OTHER ==
[~2021-05-06] MED LIST changes: -DOXY100C2 PO; +DOXY100C3 PO
[2021-05-06 12:21] LABS: BASO % 0 % (0-3); EOS # 0.1 x10^3/uL (0.0-0.7); EOS % 1 % (0-3); HEMATOCRIT 44.6 % (39.0-53.0); HEMOGLOBIN 15.4 g/dL (13.0-17.5); LYMPH # 3.1 x10^3/uL (1.0-4.8); LYMPH % 26 % (24-48); MEAN CORPUSCULAR HEMOGLOBIN 32 pg (25-35); MEAN CORPUSCULAR HGB CONC 35 g/dL (31-37); MEAN CORPUSCULAR VOLUME 93 fL (79-100); MONO # 0.8 x10^3/uL (0.0-1.1); MONO % 7 % (0-9); NEUT % 67 % (31-73); PLATELET COUNT 314 x10^3/uL (140-400); RED BLOOD COUNT 4.78 x10^6/uL (4.30-5.70); RED CELL DISTRIBUTION WIDTH 13.7 % (11.5-14.5)
[2021-05-06 12:57] LABS: ALBUMIN 3.7 g/dL (3.4-5.0); ALBUMIN/GLOBULIN RATIO 1.1 (1.0-1.7); CALCIUM 8.9 mg/dL (8.5-10.1); CREATININE 1.2 mg/dL (0.7-1.3); GFR 63.6; POTASSIUM 4.4 mmol/L (3.5-5.1); TOTAL BILIRUBIN 0.6 mg/dL (0.2-1.0); TOTAL PROTEIN 7.2 g/dL (6.4-8.2)
== END ==
LOC: LAB 11:52
PROVIDERS: ATTEND Internal Medicine
DX: R10.13 Epigastric pain (principal); R11.10 Vomiting, unspecified; K43.6 Other and unspecified ventral hernia with obstruction, without gangrene; Z87.19 Personal history of other diseases of the digestive system
CPT/HCPCS: 36415; 80053; 83690; 85025; 87040

== ENCOUNTER → 2021-05-07 | Outpatient (CLI) | payer OTHER ==
--- NOTE | 2021-05-07 12:19 | RAD ---
EXAM: Abdomen sonogram. HISTORY: Pain. Ventral hernia. TECHNIQUE: Sonographic imaging of the ventral abdominal wall was performed. COMPARISON: None. FINDINGS: There is no evidence of a ventral abdominal wall hernia, mass or fluid collection. IMPRESSION: Unremarkable sonographic imaging of the ventral abdominal wall. Cross-sectional imaging m ay be indicated if there is concern for a sonographically occult lesion. Electronically signed by: Gardenia Rich MD (05/07/2021 12:17 PM) [id number]
== END ==
LOC: US 11:35
PROVIDERS: ATTEND Internal Medicine
DX: K43.6 Other and unspecified ventral hernia with obstruction, without gangrene (principal); R11.0 Nausea; R10.13 Epigastric pain; Z98.84 Bariatric surgery status; Z87.19 Personal history of other diseases of the digestive system
CPT/HCPCS: 76705

== ENCOUNTER → 2021-05-09 | Outpatient (CLI) | payer OTHER ==
[~2021-05-09] MED LIST changes: +CONTRAST GIVEN. MC PRN; +IOHEXOL 240 MG/ML 50ML VIAL. PO ONE; +IOHEXOL 300 MG/ML 100ML VIAL. IV ONE
--- NOTE | 2021-05-09 09:58 | RAD ---
EXAM: CT ABDOMEN/PELVIS WITH CONTRAST. HISTORY: Epigastric pain and vomiting. TECHNIQUE: Computed tomography of the abdomen and pelvis was performed after the intravenous administ ration of iodinated contrast. One or more of the following individualized dose reduction techniques w ere utilized for this examination: 1. Automated exposure control. 2. Adjustment of the mA and/or kV according to patient size. 3. Use of iterative reconstruction technique. COMPARISON: 03/09/2020. FINDINGS: Lung windows through the visualized portions of the bases reveal no abnormality. Bone windo ws reveal no suspicious lesions. There are chronic fractures of the left anterior ribs. There are changes of gastric bypass. There is some dense fluid within the bypassed portions of the st omach. Previously noted perigastric inflammatory changes have improved. There is no small bowel obstr uction. The liver, gallbladder, kidneys, and adrenal glands are unremarkable. A few tiny calcifications in th e pancreatic head are consistent with chronic pancreatitis. There are calcified granulomas in the spl een. A peripancreatic lymph node measures 2.5 x 1.4 cm and is stable. There are no enlarged nodes elsewher e. The appendix is not inflamed. The prostate is mildly to moderately enlarged. There is moderate bladde r wall thickening. IMPRESSION: 1. Fluid within the bypassed portion of the stomach measures 70 Hounsfield units. This may reflect or contrast in the setting of a gastrogastric fistula, versus hemorrhage. Correlate with other data. 2. Correlate for chronic pancreatitis. One prominent peripancreatic lymph node is stable and is likel y reactive. Electronically signed by: Ayana Patel MD (05/09/2021 9:55 AM) [id number]
== END ==
LOC: CT 08:43
PROVIDERS: ATTEND Physician Assistant Medical
DX: R11.2 Nausea with vomiting, unspecified (principal); R10.13 Epigastric pain; M84.48XA Pathological fracture, other site, initial encounter for fracture; Z98.84 Bariatric surgery status
CPT/HCPCS: 74177; Q9966; Q9967

== ENCOUNTER → 2021-05-23 | Day surgery (SDC) | payer OTHER ==
[~2021-05-23] VITALS: Ht 180.3 cm; Wt 124.5 kg
[~2021-05-23] MED LIST changes: -CONTRAST GIVEN. MC PRN; +HYDROmorphone 2 MG/ML VIAL IVP PRN; -IOHEXOL 240 MG/ML 50ML VIAL. PO ONE; -IOHEXOL 300 MG/ML 100ML VIAL. IV ONE; +IV RINGERS,LACTATED 1000ML 1,000 ML IV SCH; +MORPHINE SULFATE 2 MG/ML INJ. IVP PRN; +PROCHLORPERAZINE 10 MG/2 ML VIAL. IVP PRN; +PROPOFOL 10 MG/ML (20ML) VIAL. IV ONE; +fentaNYL PF VIAL 100 MCG/2 ML VIAL IVP PRN
[2021-05-23 06:39] VITALS: BP 120/74
--- NOTE | 2021-05-23 08:19 | HP ---
DATE OF SERVICE: 05/23/2021 ADMIT DATE: 05/23/2021 UPDATED HISTORY AND PHYSICAL REFERRING PHYSICIAN: Keiko Parks MD. REASON: Colorectal screening. HISTORY: A 50-year-old male with past medical history significant for rotator cuff repair, diabetes, sepsis, gastroesophageal reflux disease, is seen for screening colon. Bowel habits are regular without diarrhea or constipation. There has been some infrequent rectal bleeding. He had previously been scheduled for colonoscopy and was canceled due to illness. He does wish to proceed at this time. PAST MEDICAL HISTORY: Diabetes, gastroesophageal reflux disease. ALLERGIES: None. MEDICATIONS: Include Albuterol, alprazolam, budesonide, gabapentin, glimepiride, hydrocodone, insulin, Victoza, melatonin, metformin, omeprazole, and Januvia. FAMILY AND SOCIAL HISTORY: Noncontributory. He is a former drinker and current smoker. PAST SURGICAL HISTORY: Significant for gastric bypass surgery. REVIEW OF SYSTEMS: Per records. PHYSICAL EXAMINATION: GENERAL: Reveals a well-nourished, well-developed male. VITAL SIGNS: Temperature is 97.6, pulse 89, respiratory rate 20. LUNGS: Clear. CARDIOVASCULAR: Reveals an S1, S2, without S3, S4 or appreciable murmur. ABDOMEN: Reveals a soft abdomen, normal bowel sounds, without appreciable hepatosplenomegaly. EXTREMITIES: Reveals no cyanosis, clubbing or edema. IMPRESSION: Colorectal screening is warranted at this time. Risks and benefits were previously discussed with the patient and is willing to proceed at this time. I thank Dr. Parks for allowing us to consult and participate in this patient's care. EMERSON/ROJELIO DR: Bing TID: [id number] CC: KEIKO PARKS MD
[2021-05-23 08:28] VITALS: BP 123/78
--- NOTE | 2021-05-26 15:07 | PATHOLOGY ---
[facility] Accession Number: [id number] . 01 Material submitted: . PART A: sigmoid colon - SIGMOID POLYPS PART B: rectum - RECTAL POLYPS . 01 Clinical history: . SCREENING COLONOSCOPY . 02 Diagnosis: A. Colon biopsies, sigmoid polyps: - Hyperplastic polyps. . B. Colorectal biopsies, rectal polyps: - Tubular adenoma (1). - Hyperplastic polyp (1). . (JPM:screening tech; 05/26/2021) R 05/26/2021 1432 Local . 02 Comment: There is no high-grade dysplasia or evidence of malignancy. (JPM:screening tech; 05/26/2021) . 02 Electronically signed: . Ayaan Goss MD, Pathologist NPI- [id number] . 01 Gross description: . A. The specimen is submitted in formalin, labeled "Juan J, Sebastian, sigmoid polyps". Received are multiple segments of pale rodríguez tissue ranging in size from 0.2 to 0.8 cm in maximum dimensions. The specimen is submitted entirely in cassette A1. . B. The specimen is submitted in formalin, labeled "Juan J, Sebastian, rectal polyps". Received are 4 segments of pale rodríguez tissue ranging in size from 0.3 to 0.5 cm in maximum dimensions. The surgical margin of the largest segment is inked and the specimen is bisected. The specimen is submitted entirely in cassette B1. ([facility]; 05/23/2021) NRI/NRI 05/23/[id number] Local . 02 Pathologist provided ICD-10: K63.5, D12.8, K62.1 . 02 CPT . 161077, 525684 Specimen Comment: A courtesy copy of this report has been sent to [phone] Specimen Comment: Report sent to / DR BOLDEN Specimen Comment: A duplicate report has been generated due to demographic updates. Performed at: 01 [facility] [address] [id number] MD Jluis Marquez MD Phone: [phone] Performed at: 02 [facility] [address] [place], [place] [id number] MD Ayaan Goss MD Phone: [phone]
== END | disposition home or self-care (01) ==
LOC: ENDOS 06:18
PROVIDERS: ATTEND Internal Medicine Gastroenterology
DX: Z12.11 Encounter for screening for malignant neoplasm of colon (principal); D12.8 Benign neoplasm of rectum; K63.89 Other specified diseases of intestine; K64.0 First degree hemorrhoids; K21.9 Gastro-esophageal reflux disease without esophagitis; E11.9 Type 2 diabetes mellitus without complications; I10 Essential (primary) hypertension; E78.00 Pure hypercholesterolemia, unspecified; J44.9 Chronic obstructive pulmonary disease, unspecified; E66.9 Obesity, unspecified; E03.9 Hypothyroidism, unspecified; F41.9 Anxiety disorder, unspecified; F32.9 Major depressive disorder, single episode, unspecified; M19.90 Unspecified osteoarthritis, unspecified site; G47.30 Sleep apnea, unspecified; F17.210 Nicotine dependence, cigarettes, uncomplicated; Z79.84 Long term (current) use of oral hypoglycemic drugs; Z79.899 Other long term (current) drug therapy; Z98.890 Other specified postprocedural states
CPT/HCPCS: 45380; 45385; 88305; J2704

== ENCOUNTER 2021-06-17 11:53 | Observation (INO) | payer OTHER ==
[~2021-06-17] VITALS: Ht 185.4 cm; Wt 126.6 kg
[~2021-06-17 11:53] MED LIST changes: -HYDROmorphone 2 MG/ML VIAL IVP PRN; -IV RINGERS,LACTATED 1000ML 1,000 ML IV SCH; -MORPHINE SULFATE 2 MG/ML INJ. IVP PRN; -PROCHLORPERAZINE 10 MG/2 ML VIAL. IVP PRN; -PROPOFOL 10 MG/ML (20ML) VIAL. IV ONE; -fentaNYL PF VIAL 100 MCG/2 ML VIAL IVP PRN
[2021-06-17 12:19] VITALS: BP 137/91
--- NOTE | 2021-06-17 12:38 | HP ---
DATE OF SERVICE: 06/17/2021 ADMIT DATE: 06/17/2021 CHIEF COMPLAINT: Upper abdominal pain. HISTORY OF PRESENT ILLNESS: A 50-year-old white male who is diabetic with a history of hypertension, diabetic neuropathy and status post gastric bypass a year and a half ago, is followed by Dr. Tillman at [facility]. He has been having epigastric pain for the last 2 weeks with increasing lately and Dr. Tillman had planned an EGD, but this has not been accomplished yet. The patient saw Dr. Tai recently and the plan was for an MRCP, both of which have not been scheduled and this pain is getting worse. He denies vomiting, hematochezia, hematemesis, melena, fever, chills or dysphagia. The severity of his pain and an unclear diagnosis precipitated the admission from the office. PAST MEDICAL HISTORY: Surgically, he has had a gastric bypass, probably a Cindy-en-Y bypass in 09/2019. He has had multiple shoulder surgeries bilaterally as well. ALLERGIES: He has no drug allergies. MEDICATIONS: Include omeprazole, Januvia, metformin, Flomax, Lyrica for neuropathy, Wellbutrin, aripiprazole, metoprolol, chlorthalidone, and Symbicort and ProAir inhalers. He has had COVID vaccines and boosters. SOCIAL HISTORY: He was a smoker up until about a week ago, started smoking as a teenager. He used to be a heavy drinker, but states he has not had much alcohol since 2006. He is . He is employed. FAMILY HISTORY: Unremarkable. REVIEW OF SYSTEMS: Unremarkable. OBJECTIVE: ENT: All within normal limits. NECK: No masses, nodes or bruits. LUNGS: Clear without tachypnea. CARDIOVASCULAR: Regular rate. No irregular beat or tachycardia. ABDOMEN: Tender in the epigastrium. No masses or organomegaly is felt. EXTREMITIES: Reasonably good pedal and radial pulses. No joint or skin lesions. Mild clubbing is noted. NEUROLOGIC: Physiologic, nonfocal. ASSESSMENT: Ongoing epigastric pain with recent CT scan raising the questions of chronic pancreatitis changes. He has had gastric bypass. Reasons for pancreatitis would be prior alcohol abuse, but off for years and perhaps undiagnosed gallbladder disease or hyperlipidemia. Other medical problems appear to be stable. PLAN: Admit for laboratory evaluation, CT scan and appropriate consultation. DORON DR: German TID: [id number]
[2021-06-17 12:54] LABS: BILIRUBIN,URINE NEGATIVE (NEG); CLARITY,URINE CLEAR; COLOR,URINE YELLOW; NITRITE,URINE NEGATIVE (NEG); PROTEIN,URINE NEGATIVE (NEG-TRACE)
[2021-06-17 13:10] LABS: BACTERIA,URINE 0 /HPF (0-FEW); RBC,URINE 0 /HPF (0-2); WBC,URINE 0 /HPF (0-4)
[2021-06-17] MEDS: POTASSIUM CL 20MEQ D5-0.45NACL 1,000 ML IV SCH ×2 (13:12→21:33)
--- NOTE | 2021-06-17 13:42 | PDOC2 ---
GI CONSULT Date of Service: DATE: 06/17/21 TIME: 13:33 Reason For Consult: epigastric pain/ ?pancreatitis HPI: HPI: 50 y/o male directly admitted by Dr. Parks. Ill x 1 month w/ epigastric pain like being punched in the stomach. Began after dry-heaving after the flu shot. Pretty constant, sometimes flares and spread throughout abdomen - unclear if radiates to back (because he has back pain all the time). Improved w/ hydrocodone - has been taking this regularly so he's not sure if pain would be worse after eating. Quitting smoking and avoidance of coffee didn't help much. Associated w/ nausea. No diarrhea, constipation, hematochezia, or melena. CT A/P from 04/2021 showed chronic pancreatitis, one prominent likely reactive peripancreatic lymph node, and fluid within the bypassed portion of the stomach. Reports he recently saw Dr. Tai in the office to discuss colonoscopy results and they discussed current issue w/ upper abdominal pain. He says MRCP was planned (not yet scheduled). H/o GERD previously on omeprazole QD and recently advised by bariatrician to add pantoprazole QHS. Reports normal EGD in 2019 @ [facility] by Dr. Tai before Cindy-en-Y by Dr. Tillman @ [facility]. Lost >100 pounds - weight has been stable. Had screening colonoscopy w/ Dr. Tai in 05/2021 @ [facility] - unable to view proce dure report but pathology report showed hyperplastic sigmoid polyp and adenomatous and hyperplastic polyps in rectum. Diverticulosis and fatty liver noted on past imaging. Denies GB or PUD history. Says GB was checked before gastric bypass. Recalls previous pancreatitis - hospitalized for this years ago - was advised to quit drinking at that time. H/o DM on Victoza and Januvia x 4 years. Chronic back pain on hydrocodone. Works for [employer]. Feels hungry. PMH: PMH: HTN, HLD, DUYEN, pneumonia, DM, peripheral neuropathy, back pain heart cath, Cindy-en-Y FH: Family History: No pertinent hx (denies pancreas history) Social History: Smoke: Quit (abotu 1 week ago) ALCOHOL: other (h/o alcoholism - sober x 15 years) Drugs: None ROS: GEN: Denies fevers, chills, sweats HEENT: Denies blurred vision, sore throat CV: Denies chest pain RESP: Denies shortness of air, cough GI: Per HPI : Denies hematuria, dysuria ENDO: Denies weight changes NEURO: Denies confusion, dizziness MSK: +chronic back pain SKIN: Denies jaundice, pruritus Vitals: Vitals: Vital Signs Date Time Temp Pulse Resp B/P (MAP) Pulse Ox O2 Delivery O2 Flow Rate FiO2 06/17/21 12:19 97.5 83 20 137/91 (106) 96 Room Air 97.5 Labs: Labs: Laboratory Tests Test 06/17/21 12:41 06/17/21 13:10 06/17/21 13:29 Urine Collection Type Unknown Urine Color Yellow Urine Clarity Clear Urine pH 6.0 (<5.0-8.0) Urine Specific [place] 1.015 (1.000-1.030) Urine Protein Negative mg/dL (NEG-TRACE) Urine Glucose (UA) Negative mg/dL (NEG) Urine Ketones (Stick) Negative mg/dL (NEG) Urine Blood Negative (NEG) Urine Nitrite Negative (NEG) Urine Bilirubin Negative (NEG) Urine Urobilinogen Dipstick 1.0 mg/dL (0.2 mg/dL) Urine Leukocyte Esterase Negative (NEG) Urine RBC 0 /HPF (0-2) Urine WBC 0 /HPF (0-4) Urine Squamous Epithelial Cells Few /LPF Urine Bacteria 0 /HPF (0-FEW) Lipase 72 U/L (73-393) Glucose (Fingerstick) 104 mg/dL (70-99) Allergies: Coded Allergies: No Known Drug Allergies (Unverified , 05/23/21) Medications: Current Medications Medications (Trade) Dose Ordered Sig/Darrius Route PRN Reason Start Time Stop Time Status Last Admin Dose Admin Potassium Chloride/Dextrose/ Sod Cl 1,000 ml @ 150 mls/hr Q6H40M IV 06/17/21 12:30 06/17/21 13:12 PE: GEN: NAD HEENT: Atraumatic, PERRL LUNGS: CTAB HEART: RRR ABD: NABS, S/ND, epigastric discomfort EXTREMITY: No edema SKIN: No rashes, no jaundice NEURO/PSYCH: A & O 3 A/P: A/P: Epigastric pain, nausea Recent CT w/ pancreatic head calcification and fluid within bypassed portion of stomach H/o GERD S/p Cindy-en-Y CRC screen, h/o adenomatous polyp - UTD (05/2021) Diverticulosis Fatty liver H/o alcoholism and pancreatitis - sober x 15 years DM, chronic back pain -- ?chronic pancreatitis w/ h/o alcohol overuse - unclear this is the cause for current symptoms - seems as though MRCP to be done as outpt for further eval. Awaiting pending labs and CT. Add GB US and lipid panel. Continue PPI - IV for now. Probably could allow clears after imaging done. YANDY RICHARDSON Jun 17, 2021 13:42
[2021-06-17] MEDS ORDERED: CYCL10TA19 PO (13:57)
[2021-06-17] MEDS ORDERED: SUCR1TAB PO (13:57)
[2021-06-17] MEDS ORDERED: PANT40TA6 PO (13:57)
[2021-06-17] MEDS ORDERED: ARIP15TA PO (13:57)
[2021-06-17] MEDS ORDERED: DOXE10CA PO (13:57)
[2021-06-17] MEDS ORDERED: MULT-245 PO (13:58)
[2021-06-17] MEDS: fentaNYL PF VIAL 100 MCG/2 ML VIAL IVP PRN ×3 (14:11→21:33)
[2021-06-17] MEDS ORDERED: IOHEXOL 300 MG/ML 100ML VIAL. IV ONE (14:30)
[2021-06-17] MEDS ORDERED: IOHEXOL 240 MG/ML 50ML VIAL. PO ONE (14:30)
[2021-06-17 14:36] LABS: CHOLESTEROL/HDL RATIO 5.7
[2021-06-17 15:00] VITALS: BP 165/110
[2021-06-17] MEDS ORDERED: PANTOPRAZOLE 40 MG TABLET.DR. PO SCH (16:30)
[2021-06-17] MEDS: PANTOPRAZOLE IV PUSH 40 MG VIAL. IVP SCH (17:21)
[2021-06-17 19:00] VITALS: BP 138/71
[2021-06-17 19:32] LABS: CALCIUM 9.1 mg/dL (8.5-10.1); CREATININE 1.1 mg/dL (0.7-1.3); GFR 70.3
[2021-06-17] MEDS: PREGABALIN 75 MG CAPSULE PO SCH (21:33)
[2021-06-17 23:00] VITALS: BP 148/89
[2021-06-18] MEDS: POTASSIUM CL 20MEQ D5-0.45NACL 1,000 ML IV SCH ×3 (01:40→19:02)
[2021-06-18] MEDS: fentaNYL PF VIAL 100 MCG/2 ML VIAL IVP PRN ×2 (01:41→05:17)
[2021-06-18 03:00] VITALS: BP 151/88
[2021-06-18 07:00] VITALS: BP 149/100
--- NOTE | 2021-06-18 07:26 | PDOC ---
Provider Note Date of Service: DATE: 06/18/21 TIME: 07:25 Provider Note vss, no temp, still epigastric pain- lipase ok, rest ok- ct/gb sono pending- dx unclear, likely needs egd next- will do cl diet, po norco in place of fent Justifications for Admission Other Justification KEIKO DIAZ MD Jun 18, 2021 07:26
[2021-06-18 07:31] LABS: BASO % 0 % (0-3); EOS # 0.2 x10^3/uL (0.0-0.7); EOS % 3 % (0-3); HEMATOCRIT 43.5 % (39.0-53.0); HEMOGLOBIN 14.6 g/dL (13.0-17.5); LYMPH # 2.8 x10^3/uL (1.0-4.8); LYMPH % 30 % (24-48); MEAN CORPUSCULAR HEMOGLOBIN 31 pg (25-35); MEAN CORPUSCULAR HGB CONC 34 g/dL (31-37); MEAN CORPUSCULAR VOLUME 93 fL (79-100); MONO # 0.5 x10^3/uL (0.0-1.1); MONO % 6 % (0-9); NEUT # 5.8 x10^3/uL (1.8-7.7); NEUT % 62 % (31-73); PLATELET COUNT 256 x10^3/uL (140-400); RED BLOOD COUNT 4.68 x10^6/uL (4.30-5.70); RED CELL DISTRIBUTION WIDTH 13.4 % (11.5-14.5); WHITE BLOOD COUNT 9.3 x10^3/uL (4.0-11.0)
[2021-06-18] MEDS: IPRATRPIUM/ALBUTEROL 0.5/2.5MG 3 ML NEBU. NEB SCH ×2 (08:00→12:00)
--- NOTE | 2021-06-18 08:21 | RAD ---
US ABDOMEN LIMITED History: Reason: eval GB - upper abd pain, h/o pancreatitis / Spl. Instructions: / History: Comparison: None. Technique: Transabdominal ultrasound images are obtained of the right upper quadrant. Findings: Liver is increased in echogenicity. Right hepatic lobe measures 20.8 cm. Portal flow is hepatopedal. No cholelithiasis, gallbladder wall thickening or pericholecystic fluid. Common bile duct measures 4 mm in diameter. Visualized pancreas not well seen due to overlying bowel gas. The right kidney measures 14.2 x 5.3 x 5.2 cm. No hydronephrosis. Visualized portions of the aorta and IVC have normal caliber. IMPRESSION: 1. Hepatomegaly with increased echotexture, may indicate steatosis. Electronically signed by: Louie Tucker DO (06/18/2021 8:19 AM) [id number]
[2021-06-18] MEDS: PREGABALIN 75 MG CAPSULE PO SCH ×2 (08:32→20:17)
[2021-06-18] MEDS: ARIPiprazole 5 MG TABLET PO SCH (08:32)
[2021-06-18] MEDS: PANTOPRAZOLE IV PUSH 40 MG VIAL. IVP SCH (08:32)
[2021-06-18] MEDS: HYDROcodone/APAP 7.5/325MG 1 TAB TABLET PO PRN ×3 (08:33→20:17)
--- NOTE | 2021-06-18 09:04 | RAD ---
Exam: CT abdomen/pelvis with intravenous contrast Indication: Epigastric pain Comparison: CT abdomen pelvis 05/09/2021 Technique: Helical CT imaging performed of the abdomen and pelvis after the intravenous administratio n of 75 mL Omnipaque 300 contrast. Sagittal and coronal reformats were obtained. One or more of the following individualized dose reduction techniques were utilized for this examinat ion: 1. Automated exposure control 2. Adjustment of the mA and/or kV according to patient size 3. Use of iterative reconstruction technique. Findings: Lower chest: Lung bases are clear. Heart is normal in size. Liver: Normal. Gallbladder/Biliary Tree: Normal. Pancreas: Normal. Spleen: No splenomegaly. There are calcified splenic granulomas. Adrenal Glands: Normal. Kidneys/Ureters/Bladder: Partially duplicated right renal collecting system. Kidneys are normal in si ze and enhancement. No hydronephrosis. Ureters and bladder are unremarkable. Reproductive Organs: Prostate gland is normal. Stomach, small bowel, and colon: There are surgical changes of gastric bypass. No evidence of small b owel obstruction. There is fluid and enteric contrast in the excluded portion of the stomach. Appendi x is normal. The colon is normal. Vasculature: No aortic aneurysm. Lymph Nodes: There is a prominent lymph node adjacent to the celiac artery measuring 1.3 cm short axi s, unchanged. Peritoneum and retroperitoneum: No free fluid or free air. Bones: No acute osseous abnormality. Miscellaneous: Small fat-containing inguinal hernias. IMPRESSION: 1. Surgical changes of gastric bypass. There is again fluid and enteric contrast seen in the exclude d stomach. 2. No new abnormality. Electronically signed by: Maddi Marie MD (06/18/2021 9:01 AM) [id number]
--- NOTE | 2021-06-18 09:09 | PDOC ---
Date of Service: DATE: 06/18/21 TIME: 09:04 Subjective: Subjective: Taking some clear liquids - "better than nothing." Upper abdominal pain about the same. Objective: Vital Signs: Vital Signs Date Time Temp Pulse Resp B/P (MAP) Pulse Ox O2 Delivery O2 Flow Rate FiO2 06/18/21 08:33 96 Room Air 06/18/21 07:00 97.5 83 16 149/100 (116) 97.5 Labs: Laboratory Tests Test 06/17/21 12:41 06/17/21 13:10 06/17/21 13:29 06/17/21 17:11 Urine Collection Type Unknown Urine Color Yellow Urine Clarity Clear Urine pH 6.0 Urine Specific [place] 1.015 Urine Protein Negative mg/dL Urine Glucose (UA) Negative mg/dL Urine Ketones (Stick) Negative mg/dL Urine Blood Negative Urine Nitrite Negative Urine Bilirubin Negative Urine Urobilinogen Dipstick 1.0 mg/dL Urine Leukocyte Esterase Negative Urine RBC 0 /HPF Urine WBC 0 /HPF Urine Squamous Epithelial Cells Few /LPF Urine Bacteria 0 /HPF Sodium Level 140 mmol/L Potassium Level 4.0 mmol/L Chloride Level 102 mmol/L Carbon Dioxide Level 27 mmol/L Anion Gap 11 Blood Urea Nitrogen 12 mg/dL Creatinine 1.1 mg/dL Estimated GFR (Cockcroft-Gault) 70.3 Glucose Level 98 mg/dL Calcium Level 9.1 mg/dL Triglycerides Level 380 mg/dL Cholesterol Level 170 mg/dL LDL Cholesterol, Calculated 64 mg/dL VLDL Cholesterol, Calculated 76 mg/dL Non-HDL Cholesterol Calculated 140 mg/dL HDL Cholesterol 30 mg/dL Cholesterol/HDL Ratio 5.7 Lipase 72 U/L Glucose (Fingerstick) 104 mg/dL 122 mg/dL Test 06/17/21 21:02 06/18/21 05:45 06/18/21 07:19 Glucose (Fingerstick) 131 mg/dL 166 mg/dL White Blood Count 9.3 x10^3/uL Red Blood Count 4.68 x10^6/uL Hemoglobin 14.6 g/dL Hematocrit 43.5 % Mean Corpuscular Volume 93 fL Mean Corpuscular Hemoglobin 31 pg Mean Corpuscular Hemoglobin Concent 34 g/dL Red Cell Distribution Width 13.4 % Platelet Count 256 x10^3/uL Neutrophils (%) (Auto) 62 % Lymphocytes (%) (Auto) 30 % Monocytes (%) (Auto) 6 % Eosinophils (%) (Auto) 3 % Basophils (%) (Auto) 0 % Neutrophils # (Auto) 5.8 x10^3/uL Lymphocytes # (Auto) 2.8 x10^3/uL Monocytes # (Auto) 0.5 x10^3/uL Eosinophils # (Auto) 0.2 x10^3/uL Basophils # (Auto) 0.0 x10^3/uL Imaging: RUQ US 06/17 Findings: Liver is increased in echogenicity. Right hepatic lobe measures 20.8 cm. Portal flow is hepatopedal. No cholelithiasis, gallbladder wall thickening or pericholecystic fluid. Common bile duct measures 4 mm in diameter. Visualized pancreas not well seen due to overlying bowel gas. The right kidney measures 14.2 x 5.3 x 5.2 cm. No hydronephrosis. Visualized portions of the aorta and IVC have normal caliber. IMPRESSION: 1. Hepatomegaly with increased echotexture, may indicate steatosis. CT A/P 06/17 pending PE: GEN: NAD LUNGS: CTAB HEART: RRR ABD: NABS, S/ND/NT NEURO/PSYCH: A & O 3 A/P: Epigastric pain S/p Cindy-en-Y, chronic pancreatitis -- Normal lipase, normal GB on US. Tolerating clear liquids. Continue PPI, await CT, consider EGD/EUS pending this - EGD could be pursued as outpt pending clinical course, same for EUS (not done here). Continue PPI - will change to PO. Try GI cocktail, consider Carafate. Justicifation of Admission Dx: Justifications for Admission: Justification of Admission Dx: N/A YANDY RICHARDSON Jun 18, 2021 09:09
[2021-06-18] MEDS ORDERED: LIDO:MAALOX 1:1 20 ML SINGLE DOSE. PO PRN (09:15)
[2021-06-18] MEDS ORDERED: POLYETHYLENE GLYCOL 3350 17 GM PACKET. PO PRN (09:15)
[2021-06-18 11:00] VITALS: BP 125/84
[2021-06-18] MEDS: SUCRALFATE 1 GM TABLET. PO SCH ×2 (11:51→16:38)
--- NOTE | 2021-06-18 11:51 | NUR ---
SW following. Discussed with RN, pt from home, room air, clear liquid diet. GI following - possibly okay to discharge if tolerates liquids with plans for an outpatient EGD. RN advised no SW needs at this time. SW will continue to follow.
[2021-06-18] MEDS: PANTOPRAZOLE 40 MG TABLET.DR. PO SCH (11:52)
[2021-06-18 12:15] LABS: CALCIUM 8.5 mg/dL (8.5-10.1); GFR 78.5; POTASSIUM 4.1 mmol/L (3.5-5.1); TOTAL BILIRUBIN 0.5 mg/dL (0.2-1.0)
[2021-06-18 15:00] VITALS: BP 163/96
[2021-06-18 19:00] VITALS: BP 156/100
[2021-06-18] MEDS ORDERED: DOXEPIN HCL 10 MG CAPSULE. PO SCH (21:00)
[2021-06-18 23:00] VITALS: BP 141/82
[2021-06-19 03:00] VITALS: BP 125/60
[2021-06-19] MEDS: HYDROcodone/APAP 7.5/325MG 1 TAB TABLET PO PRN (03:09)
[2021-06-19] MEDS: POTASSIUM CL 20MEQ D5-0.45NACL 1,000 ML IV SCH (05:02)
[2021-06-19 07:00] VITALS: BP 145/100
--- NOTE | 2021-06-19 08:00 | PDOC ---
Provider Note Date of Service: DATE: 06/19/21 TIME: 07:59 Provider Note [id number] Justifications for Admission Other Justification KEIKO DIZA MD Jun 19, 2021 08:00
[2021-06-19] MEDS: PANTOPRAZOLE 40 MG TABLET.DR. PO SCH (08:20)
[2021-06-19] MEDS: SUCRALFATE 1 GM TABLET. PO SCH (08:20)
[2021-06-19] MEDS: ARIPiprazole 5 MG TABLET PO SCH (08:20)
[2021-06-19] MEDS: PREGABALIN 75 MG CAPSULE PO SCH (08:21)
--- NOTE | 2021-06-19 10:38 | NUR ---
pt was discharged home with self care, was also told that he needed to contact I[facility] so that he can schedule his outpatient EGD. no scripts sent for pt. he was walked out to the ED entrance so that he may drive himself home. Jose Daniel Reis RN
--- NOTE | 2021-06-19 11:31 | NUR ---
SW following. Discussed with RN, discharge order for home with self care. RN advised no SW needs.
--- NOTE | 2021-06-19 11:48 | DS ---
DATE OF DISCHARGE: 06/19/2021 HOSPITAL SUMMARY: A 50-year-old male admitted with ongoing epigastric pain, med treatment failed omeprazole, Carafate, uses an outpatient and outpatient CT had been unremarkable. He was admitted as a possible pancreatitis, but the lipase was normal as was the CBC, chemistry profile, blood sugars and liver functions. Gallbladder sonogram showed enlarged liver, possible fatty liver, but no other changes are present there and CT scan generally unremarkable without diagnostic findings. He received this all with IV opioids while in the hospital and his pain seems to be improved by being n.p.o. on clear liquids. He will be followed as an outpatient. At this point, he tolerated full liquid diet. He will go home on full liquid diet to have upper endoscopy as an outpatient per Dr. Tai. FINAL DIAGNOSES: 1. Epigastric pain, etiology undetermined. 2. Hepatomegaly, likely secondary to nonalcoholic fatty liver disease. OPERATIONS, PROCEDURES, AND COMPLICATIONS: None. CONSULTATION: Micky Tai MD DISPOSITION: Full liquid diet as his pain is improved. He will continue meds including omeprazole and Carafate until outpatient EGD for further evaluation. He is seeing his bariatric surgeon, Dr. Gómez, as well for further assistance. PROGNOSIS: Guarded. LUCERO/MICHELLE DR: MOY/bere TID: [id number]
== END 2021-06-19 10:15 | disposition home or self-care (01) ==
LOC: INTOOBSV 11:53 → 5 SOUTH 11:53
PROVIDERS: ADMIT Family Medicine; ATTEND Family Medicine
DX: R10.13 Epigastric pain (principal); R16.0 Hepatomegaly, not elsewhere classified; K76.0 Fatty (change of) liver, not elsewhere classified; K86.1 Other chronic pancreatitis; K21.9 Gastro-esophageal reflux disease without esophagitis; E11.42 Type 2 diabetes mellitus with diabetic polyneuropathy; E78.5 Hyperlipidemia, unspecified; G47.33 Obstructive sleep apnea (adult) (pediatric); K57.90 Diverticulosis of intestine, part unspecified, without perforation or abscess without bleeding; K62.1 Rectal polyp; D12.5 Benign neoplasm of sigmoid colon; G89.29 Other chronic pain; I10 Essential (primary) hypertension; J18.9 Pneumonia, unspecified organism; Z98.84 Bariatric surgery status; Z79.899 Other long term (current) drug therapy; Z98.890 Other specified postprocedural states; Z79.84 Long term (current) use of oral hypoglycemic drugs; Z87.891 Personal history of nicotine dependence
CPT/HCPCS: 36415; 74177; 76705; 80048; 80053; 80061; 81001; 82962; 83690; 85025; 96361; 96374; 96375; 96376; C9113; J3010; J3480; Q9966; Q9967; G0378; G0379

== ENCOUNTER → 2021-07-25 | Day surgery (SDC) | payer OTHER ==
[~2021-07-25] VITALS: Ht 185.4 cm; Wt 126.3 kg
[~2021-07-25] MED LIST changes: +ARIP15TA PO; +CYCL10TA19 PO; +DOXE10CA PO; +IV RINGERS,LACTATED 1000ML 1,000 ML IV SCH; +LIDOCAINE 2% PF 5 ML VIAL. ONE; +MULT-245 PO; +PANT40TA6 PO; +PREG100C PO; +PROPOFOL 10 MG/ML (20ML) VIAL. IV ONE; +SUCR1TAB PO
[2021-07-25 06:16] VITALS: BP 121/68
[2021-07-25 07:40] VITALS: BP 110/65
--- NOTE | 2021-07-31 03:18 | CONS ---
DATE OF CONSULTATION: 07/30/2021 UPDATED HISTORY AND PHYSICAL REASON FOR CONSULTATION: Epigastric abdominal pain. REFERRING PHYSICIAN: Gerardo Parks MD HISTORY OF PRESENT ILLNESS: A 50-year-old male whose past medical history is significant for Cindy-en-Y, abdominal pain, and colonic polyps, is seen with chronic pancreatitis and lymphadenopathy. MRCP did raise a question of pseudocyst mass. An EGD has been recommended to further assess. The patient otherwise gives minimal additional complaints at the present time, no changes in history. PAST MEDICAL HISTORY: Pancreatitis, abdominal pain, and colonic polyps. ALLERGIES: None. MEDICATIONS: Include metformin, gabapentin, melatonin, pantoprazole, Januvia, alprazolam, and multivitamin. FAMILY AND SOCIAL HISTORY: He is a social drinker and a smoker. PAST SURGICAL HISTORY: Cindy-en-Y weight loss surgery. REVIEW OF SYSTEMS: Per records. PHYSICAL EXAMINATION: GENERAL: Reveals a well-nourished and well-developed male who is alert and cooperative, in no acute distress. VITAL SIGNS: Temperature was 97.8, pulse 87, and respiratory rate 14. LUNGS: Clear. CARDIOVASCULAR: Reveals an S1, S2, without S3, S4 or appreciable murmur. ABDOMEN: Reveals epigastric tenderness to deep palpation without appreciable hepatosplenomegaly. EXTREMITIES: Reveals no cyanosis, clubbing or edema. IMPRESSION: Abdominal pain, status post Cindy-en-Y with pancreatitis, malignancy, gastroparesis, anastomotic ulcers, celiac disease certainly in the differential. Therefore, I recommend upper endoscopy, possible biopsy and a dilatation. Risks and benefits of procedure have been discussed. The patient is willing to proceed at this time. Thank you, Dr. Parks, for allowing us to consult and participate in the patient's care. EMERSON/DEVON/AMI DR: EMERSON/bere TID: [id number] CC: ____ ____
== END | disposition home or self-care (01) ==
LOC: ENDOS 05:56
PROVIDERS: ATTEND Internal Medicine Gastroenterology
DX: R13.10 Dysphagia, unspecified (principal); R10.13 Epigastric pain; R93.3 Abnormal findings on diagnostic imaging of other parts of digestive tract; K31.89 Other diseases of stomach and duodenum; I10 Essential (primary) hypertension; E78.00 Pure hypercholesterolemia, unspecified; J44.9 Chronic obstructive pulmonary disease, unspecified; E66.9 Obesity, unspecified; K21.9 Gastro-esophageal reflux disease without esophagitis; G47.30 Sleep apnea, unspecified; M19.90 Unspecified osteoarthritis, unspecified site; E11.9 Type 2 diabetes mellitus without complications; E03.9 Hypothyroidism, unspecified; F41.9 Anxiety disorder, unspecified; F32.9 Major depressive disorder, single episode, unspecified; F17.210 Nicotine dependence, cigarettes, uncomplicated; Z79.899 Other long term (current) drug therapy; Z98.890 Other specified postprocedural states; Z79.84 Long term (current) use of oral hypoglycemic drugs
CPT/HCPCS: 43235; 82962; J2704

== ENCOUNTER → 2021-08-11 | Outpatient (CLI) | payer OTHER ==
[2021-07-25 07:40] VITALS: BP 110/65
[~2021-08-11] MED LIST changes: -IV RINGERS,LACTATED 1000ML 1,000 ML IV SCH; -LIDOCAINE 2% PF 5 ML VIAL. ONE; -PROPOFOL 10 MG/ML (20ML) VIAL. IV ONE
--- NOTE | 2021-08-11 14:16 | KCIC ---
EXAM: MRCP W/O CONTRAST 08/11/2021 11:30 AM CLINICAL INDICATION: Chronic pancreatitis. Epigastric pain for about 2 months. COMPARISON: CT abdomen pelvis 06/17/2021 and 05/09/2021 TECHNIQUE: Multiplanar multisequence MR images of the abdomen according to MRCP protocol FINDINGS: Gallbladder is normal in appearance. No cholelithiasis or wall thickening. Common bile duct and intra hepatic bile ducts are normal. There is no evidence of bile duct obstruction. The pancreas is normal in appearance. No pancreatic duct dilatation. No obvious mass seen on noncontrast exam. A 2.4 x 1.3 c m lymph node along the celiac axis is unchanged. The liver, spleen, adrenal glands, and visualized po rtion of the kidneys are normal. Stomach and visualized portion of the bowel are unremarkable. IMPRESSION: 1. Normal appearance of the gallbladder, bile ducts, and pancreas. 2. Unchanged prominent celiac axis lymph node. Electronically signed by: Maddi Marie MD (08/11/2021 2:14 PM) [id number]
== END ==
LOC: KCIC MRI 09:43
PROVIDERS: ATTEND Internal Medicine Gastroenterology
DX: K86.1 Other chronic pancreatitis (principal); I89.8 Other specified noninfective disorders of lymphatic vessels and lymph nodes
CPT/HCPCS: 74181

== ENCOUNTER → 2021-08-19 | Outpatient (CLI) | payer OTHER ==
[2021-07-25 07:40] VITALS: BP 110/65
--- NOTE | 2021-08-19 10:11 | KCIC ---
MR LUMBAR SPINE WO [id number] Date: 08/19/2021 8:05 AM Indication: LUMBAGO WITH SCIATICA LEFT AND RIGHT SIDES. Chronic LBP, radiates up into shoulders. BLE numbness and pain. Comparison: CT abdomen pelvis 06/17/2021. MRI lumbar spine 06/22/2017. Technique: Multi-planar multi-weighted magnetic resonance imaging of the lumbar spine was performed w ithout intravenous contrast using the standard lumbar spine protocol. FINDINGS: The lumbar spine is normally aligned. No acute fracture. Mild multilevel degenerative disc desiccatio n and disc height loss. Bone marrow signal intensity is normal. The conus terminates at a normal level. No abnormal signal is seen within the visualized distal spina l cord. No clumping of intrathecal nerve roots. No soft tissue abnormality in the visualized abdomen or pelvis. T12-L1: No disc bulge. No facet arthropathy. No significant spinal stenosis or neural foraminal narro wing. L1-L2: No disc bulge. No facet arthropathy. No significant spinal stenosis or neural foraminal narrow ing. L2-L3: Disc bulge. Mild facet arthropathy. No significant spinal stenosis. Mild left neural foraminal narrowing. L3-L4: Disc bulge. Moderate facet arthropathy. Mild spinal stenosis. Mild bilateral neural foraminal narrowing. L4-L5: Disc bulge. Mild facet arthropathy. No significant spinal stenosis. Mild neural foraminal narr owing. L5-S1: Disc bulge. Mild right and moderate facet arthropathy. No significant spinal stenosis or neura l foraminal narrowing. IMPRESSION: Mild lumbar spondylosis, not progressed from the prior. Electronically signed by: Tai Eisenberg MD (08/19/2021 10:08 AM) [id number]
== END ==
LOC: KCIC MRI 07:56
PROVIDERS: ATTEND Family Medicine
DX: M47.816 Spondylosis without myelopathy or radiculopathy, lumbar region (principal); M51.27 Other intervertebral disc displacement, lumbosacral region; M48.8X7 Other specified spondylopathies, lumbosacral region; M48.061 Spinal stenosis, lumbar region without neurogenic claudication; M51.36 Other intervertebral disc degeneration, lumbar region; M54.41 Lumbago with sciatica, right side; M54.42 Lumbago with sciatica, left side
CPT/HCPCS: 72148

== ENCOUNTER → 2021-09-15 | Outpatient (CLI) | payer OTHER ==
[2021-07-25 07:40] VITALS: BP 110/65
[~2021-09-15] MED LIST changes: +DEXAMETHASONE PRES.FREE 10 MG/ML VIAL. ONE; +IOHEXOL 180 MG/ML 10 ML VIAL. ONE
--- NOTE | 2021-09-15 09:59 | PDOC1 ---
INITIAL PAIN CONSULT DATE OF SERVICE: DOS: DATE: 09/15/21 TIME: 09:52 CHIEF COMPLAINT: Chief Complaint: Low back and bilateral lower extremity pain HISTORY OF PRESENT ILLNESS: 50-year-old male presents with history of pain low back and bilateral lower extremities for about 2 years not the result of any specific injury or accident that he is aware but getting worse over the past 2months without any recent inci dents as well. Patient reports the pain is across the low back into the mid back as well as into the lower extremities mostly in the lateral anterior thighs with walking standing patient reports is most exacerbated by standing still in 1 position for more than 10 to 15 minutes such as preparing food at that countertop patient reports it wakes him from sleep at least twice or more night does not affect his bowel bladder control but does affect his ability to walk significantly patient reports he has been stretching and doing some strength exercises on his own which is not been helping also taking hydrocodone which does decrease the pain also [id number] Tylenol and Lyrica which does help with the pain in the legs and feet patient reports she has had trigger point in the past also is doing exercise has had no recent physical therapies or other modalities of treatment. Patient reports pain is constant aching sharp and stinging radiating lower extremities again the lateral anterior thighs to the mid knee on the bilateral right and left equal to each other in intensity. Patient rates disability rating 0-10 10 being worst is an 8 with an responsibilities recreation social activity and sexual behavior 10 with occupation 1 with self-care and life support activities. Patient did have MRI scan lumbar spine showing lumbar spondylosis with disc bulges at L2-3 L3-4 L4-5 and L5-S1 with mild facet arthropathy at each level without significant spinal stenosis with mild bilateral neuroforaminal narrowing as well. Patient reports no loss of motor function but significant fatigability of the lower extremities with ambulation and standing. PAST MEDICAL HISTORY: PMH: Diabetes type 2, insulin-dependent, arthritis, cigarette smoking, obesity PREVIOUS SURGERIES: Past Surgical Hx: Lap band procedure, bilateral shoulder rotator cuff repairs CURRENT MEDICATIONS: Current Meds: Active Scripts Medications Dose Route/Sig Max Daily Dose Days Date Category Dose Instructions Pantoprazole Sodium 40 Mg Tablet.dr 1 Tab PO HS 06/17/21 Reported Novolog Flexpen (Insulin Aspart) 100 Unit/1 Ml Insuln.pen 10 Unit SQ TIDAC 30 09/25/17 Rx use by sliding scale for BS <150 none, 200-300 4 units SQ ,300-350 6 units SQ, 350-400 8 units SQ ,400-450 10 units SQ, and > 450 15 units and call MD Frank 0.5-3(2.5) Mg/3 Ml (Albuterol/Ipratropium) 3 Ml Ampul.neb 3 Ml NEB QID 30 09/25/17 Rx Symbicort 160-4.5 Mcg Inhaler (Budesonide/Formoterol Fumarate) 10.2 Gm Hfa.aer.ad 2 Puff IH BID 09/25/17 Rx Metformin Hcl 500 Mg Tablet 1 Tab PO BID 01/22/16 Reported LAST DOSE GIVEN: DATE:03-19-16 TIME:8:30 a.m. NEXT DOSE DUE: DATE:03-19-16 TIME:5:00 p.m. ALLERGIES; Allergies: Coded Allergies: No Known Drug Allergies (Unverified , 07/25/21) FAMILY HISTORY: Family Hx: No major medical problems or conditions that he is aware of SOCIAL HISTORY: Social Hx: Patient does not muna alcohol does smoke cigarettes about half pack a day for the past few years continues to smoke, does not use any illegal illicit or recreational drugs is lives with spouse lives locally in [facility] and is currently retired. REVIEW OF SYSTEMS: ROS: Positive for those items mentioned in history of present illness, all systems are reviewed, otherwise negative ,and are complete full and well-documented on patient's chart. PHYSICAL EXAM: VS: Blood pressure is 122/91 pulse 91 respirations 18 temperature 98.1 F height is 6 foot 1 inch, weight is 296 pounds. PE: PHYSICAL EXAMINATION: GENERAL: The patient is awake, alert, oriented, appropriate, very pleasant in demeanor HEENT: Shows normocephalic, atraumatic. Extraocular movements are intact and symmetrical. Oral cavity: Mucous membranes moist and pink. Dentition is intact. NECK: Shows anterior throat supple without palpable lymphadenopathy noted. Swallow reflex symmetrical. CHEST: Shows normal on inspection. Breath sounds are clear bilaterally, coarse and distant but no rales or rhonchi or wheezes auscultated. HEART: Shows S1, S2 clear. No murmurs auscultated. ABDOMEN: Soft, nontender, nondistended, obese. No palpable organomegaly is noted. BACK: Shows spine grossly in the midline. Normal-appearing cervical lordotic curvature. There is mildly increased thoracic kyphosis, some flattening of the lumbar lordotic curvature. Lumbar paraspinous muscles show symmetrical on inspection, on palpation shows some moderate tenderness diffusely throughout the upper, middle and lower distribution of the paraspinous muscles bilaterally and also into the lower thoracic paraspinous musculature, firm and tender, but without specific trigger points, without radiation of pain. The patient has good rotational motion of the lumbar spine, both laterally as well as extension and flexion without significant difficulty. No tenderness over the spinous processes, sacrum or sacroiliac regions. EXTREMITIES: Lower extremities show deep tendon reflexes 1+ in the patellar and tendo calcaneus tendons. Motor exam is 4 on a scale of 5 with right dorsiflexion, extension, quadriceps and hamstring flexion and 4/5 on the left. Peripheral pulses are 1+ posterior tibial. No peripheral edema is noted fidel aterally. Lower extremities are warm and dry to touch, equal in color and appearance. Straight leg raise noted to be positive bilaterally at approximate 45 degrees, decreased with knee flexion. Gaenslen's and Je's maneuvers are negative bilaterally. The patient is able to stand, stand on his toes without significant difficulty loss of balance walks with a slight antalgic gait does not appear to favor the right or left lower extremity significantly but does not use any assistive devices to ambulate as well such as canes or walkers. SKIN: Shows warm and dry, good turgor. No edema. No sores, rashes or bruising throughout. IMPRESSION: Impression: 50-year-old male with approximate 2-year history increasing back pain with low back pain radiating into the bilateral lower extremities and radicular fashion. MRI scan lumbar spine as noted Arthritis Type 2 diabetes insulin-dependent Obesity Cigarette smoking Plan: Options were discussed with patient including serve medical managements physical therapies interventional techniques. Patient would like to pursue interventional techniques as he is doing stretching and strengthening on his own and taking oral analgesics without significant long-term reduction in pain. We discussed a lumbar epidural steroid injections description as well as anatomical models to describe the procedure. Risks were discussed including but not limited to: Bleeding, infection, possibility of epidural hematoma and subsequent neurological compromise, dural puncture, headaches, spinal cord and/or nerve damage, side effects of steroid medication, and poor results regarding pain cont rol. Patient understands and wished to proceed. Patient will return to the clinic in approximately 2 weeks for follow-up, was counseled as to return appointment, activity level, and side effects to be aware of. Procedure is lumbar epidural steroid injection under local anesthetic using sterile prep and drape at the L4-5 level using C-arm fluoroscopic guidance in both AP and lateral views medications injected is 20 mg dexamethasone +10mL preservative-free normal saline and 2 mL contrast- condition at discharge is stable patient tolerated procedure well had no complications. MARCOS CH MD Sep 15, 2021 09:59
--- NOTE | 2021-09-15 10:00 | PDOC4 ---
Procedure Note: ICD 10 Code: ICD 10 Code: M54.16 M51.36 Procedure Note: Patient was consented for lumbar epidural steroid injection with fluoroscopic guidance. Risks were discussed including but not limited to: Bleeding, infection, possibility of epidural hematoma and subsequent neurological compromise, dural puncture, headaches, spinal cord and/or nerve damage, side effects of steroid medication, and poor results regarding pain control. Patient understands and wished to proceed. Procedure is lumbar epidural steroid injection under local anesthetic using sterile prep and drape at the L4-5 level using C-arm fluoroscopic guidance in both AP and lateral views medications injected is 20 mg dexamethasone +10mL preservative-free normal saline and 2 mL contrast- condition at discharge is stable patient tolerated procedure well had no complications. MARCOS CH MD Sep 15, 2021 10:00
== END | disposition home or self-care (01) ==
LOC: PNCL 09:18
PROVIDERS: ATTEND Anesthesiology
DX: M51.16 Intervertebral disc disorders with radiculopathy, lumbar region (principal); E11.9 Type 2 diabetes mellitus without complications; M19.90 Unspecified osteoarthritis, unspecified site; E66.9 Obesity, unspecified; J44.9 Chronic obstructive pulmonary disease, unspecified; E78.00 Pure hypercholesterolemia, unspecified; I10 Essential (primary) hypertension; G47.30 Sleep apnea, unspecified; K21.9 Gastro-esophageal reflux disease without esophagitis; E03.9 Hypothyroidism, unspecified; F41.9 Anxiety disorder, unspecified; F32.9 Major depressive disorder, single episode, unspecified; F17.210 Nicotine dependence, cigarettes, uncomplicated; Z79.84 Long term (current) use of oral hypoglycemic drugs; Z79.899 Other long term (current) drug therapy; Z98.890 Other specified postprocedural states
CPT/HCPCS: 62323; G0463; J1100; Q9965

== ENCOUNTER 2021-09-22 15:21 | Inpatient (IN) | payer OTHER ==
[~2021-09-22] VITALS: Ht 185.4 cm; Wt 132.2 kg
[~2021-09-22 15:21] MED LIST changes: -DEXAMETHASONE PRES.FREE 10 MG/ML VIAL. ONE; -IOHEXOL 180 MG/ML 10 ML VIAL. ONE
--- NOTE | 2021-09-22 15:44 | PHYS DOC ---
Past Medical History Past Medical History: Asthma, COPD, Diabetes-Type II, High Cholesterol, H ypertension, OR Additional Past Medical Histor: PE, SEPSIS, PNEUMONIA Past Surgical History: Other Additional Past Surgical Histo: BILATERAL SHOULDER,CARDIAC CATH, gastric bypass Smoking Status: Current Every Day Smoker Alcohol Use: None Drug Use: None General Adult EDM: Chief Complaint: CHEST PAIN HPI: HPI: Patient is a 50-year-old male that presents today with chest pain. Patient states over the last 4 days he has had increased episodes of chest pain, he said that he was working in yard the other day and having chest pain he said he sat down and his pain got better he said today he was walking at work he had some chest pain and he said he got better once he sat down, and then he is also had some chest pain walking into the emergency department he still is concerning for chest pain at this time. Patient states today his chest pain was associated with nausea and some exertional shortness of breath. Patient does have a past medical history of hypertension, diabetes, and history of smoking. Review of Systems: Review of Systems: Constitutional: Denies fever or chills. [] Eyes: Denies change in visual acuity. [] HENT: Denies nasal congestion or sore throat. [] Respiratory: Exertion no shortness of breath denies cough Cardiovascular: Chest pain denies edema. [] GI: NAUSEA Denies abdominal pain, nausea, vomiting, bloody stools or diarrhea. [] : Denies dysuria. [] Musculoskeletal: Denies back pain or joint pain. [] Integument: Denies rash. [] Neurologic: Denies headache, focal weakness or sensory changes. [] Endocrine: Denies polyuria or polydipsia. [] Lymphatic: Denies swollen glands. [] Psychiatric: Denies depression or anxiety. [] Heart Score: C/O Chest Pain: Yes HEART Score for Chest Pain: HEART Score for Chest Pain Response (Comments) Value History Highly Suspicious 2 ECG Normal 0 Age >45 - < 65 1 Risk Factors >3 Risk Factors or Hx CAD 2 Troponin < Normal Limit 0 Total 5 Risk Factors: Risk Factors: DM, Current or recent (<one month) smoker, HTN, HLP, family history of CAD, obesity. Risk Scores: Score 0 - 3: 2.5% MACE over next 6 weeks - Discharge Home Score 4 - 6: 20.3% MACE over next 6 weeks - Admit for Clinical Observation Score 7 - 10: 72.7% MACE over next 6 weeks - Early Invasive Strategies Current Medications: Current Medications Medications (Trade) Dose Ordered Sig/Darrius Route PRN Reason Start Time Stop Time Status Last Admin Dose Admin Aspirin (Aspirin Chewable) 324 mg 1X ONCE PO 09/22/21 15:45 09/22/21 15:46 DC 09/22/21 15:50 Nitroglycerin (Nitrostat) 0.4 mg PRN Q5MIN PRN SL CP RATING > 1/10 09/22/21 15:45 09/23/21 15:44 09/22/21 16:14 Morphine Sulfate (Morphine Sulfate) 2 mg PRN Q15MIN PRN IV/SQ PAIN GREATER THAN 309/22/21 15:45 09/23/21 15:44 09/22/21 15:50 Allergies: Allergies: Allergies Coded Allergies Type Severity Reaction Last Updated Verified No Known Drug Allergies 09/22/21 No Physical Exam: PE: Constitutional: Well developed, well nourished, MILD distress, non-toxic appearance. [] HENT: Normocephalic, atraumatic, bilateral external ears normal, oropharynx moist, no oral exudates, nose normal. [] Eyes: PERRLA, EOMI, conjunctiva normal, no discharge. [] Neck: Normal range of motion, no tenderness, supple, no stridor. [] Cardiovascular:Heart rate regular rhythm, peripheral pulses 2+ Lungs & Thorax: Bilateral breath sounds clear to auscultation [] Abdomen: Bowel sounds normal, soft, no tenderness, no masses, no pulsatile masses. [] Skin: Warm, dry, no erythema, no rash. [] Back: No tenderness, no CVA tenderness. [] Extremities: No tenderness, no cyanosis, no clubbing, ROM intact, no edema. [] Neurologic: Alert and oriented X 3, normal motor function, normal sensory function, no focal deficits noted. [] Psychologic: Affect normal, judgement normal, mood normal. [] Current Patient Data: Labs: Laboratory Tests Test 09/22/21 15:42 White Blood Count 10.1 x10^3/uL Red Blood Count 4.70 x10^6/uL Hemoglobin 14.9 g/dL Hematocrit 43.2 % Mean Corpuscular Volume 92 fL Mean Corpuscular Hemoglobin 32 pg Mean Corpuscular Hemoglobin Concent 35 g/dL Red Cell Distribution Width 14.0 % Platelet Count 285 x10^3/uL Neutrophils (%) (Auto) 65 % Lymphocytes (%) (Auto) 27 % Monocytes (%) (Auto) 6 % Eosinophils (%) (Auto) 1 % Basophils (%) (Auto) 1 % Neutrophils # (Auto) 6.6 x10^3/uL Lymphocytes # (Auto) 2.8 x10^3/uL Monocytes # (Auto) 0.6 x10^3/uL Eosinophils # (Auto) 0.1 x10^3/uL Basophils # (Auto) 0.1 x10^3/uL Prothrombin Time 13.8 SEC Prothromb Time International Ratio 1.1 Activated Partial Thromboplast Time 34 SEC D-Dimer (Annmarie) < 0.27 ug/mlFEU Sodium Level 138 mmol/L Potassium Level 3.6 mmol/L Chloride Level 102 mmol/L Carbon Dioxide Level 26 mmol/L Anion Gap 10 Blood Urea Nitrogen 13 mg/dL Creatinine 1.1 mg/dL Estimated GFR (Cockcroft-Gault) 70.3 BUN/Creatinine Ratio 12 Glucose Level 105 mg/dL Calcium Level 8.8 mg/dL Total Bilirubin 0.4 mg/dL Aspartate Amino Transf (AST/SGOT) 18 U/L Alanine Aminotransferase (ALT/SGPT) 31 U/L Alkaline Phosphatase 81 U/L Troponin I High Sensitivity 6 ng/L NM-Ziw-Y-Type Natriuretic Peptide 105 pg/mL Total Protein 7.3 g/dL Albumin 3.6 g/dL Albumin/Globulin Ratio 1.0 Current Medications Medications (Trade) Dose Ordered Sig/Darrius Route PRN Reason Start Time Stop Time Status Last Admin Dose Admin Aspirin (Aspirin Chewable) 324 mg 1X ONCE PO 09/22/21 15:45 09/22/21 15:46 DC 09/22/21 15:50 Nitroglycerin (Nitrostat) 0.4 mg PRN Q5MIN PRN SL CP RATING > 07/2109/22/21 15:45 09/23/21 15:44 09/22/21 16:14 Morphine Sulfate (Morphine Sulfate) 2 mg PRN Q15MIN PRN IV/SQ PAIN GREATER THAN 09/1809/22/21 15:45 09/23/21 15:44 09/22/21 15:50 Vital Signs: Vital Signs Date Time Temp Pulse Resp B/P (MAP) Pulse Ox O2 Delivery O2 Flow Rate FiO2 09/22/21 19:44 81 144/91 (108) 98 Room Air 09/22/21 19:14 89 139/82 (101) 99 Room Air 09/22/21 18:48 87 151/82 (105) 99 Room Air 09/22/21 18:44 86 151/87 (108) 99 Room Air 09/22/21 18:43 22 99 Room Air 09/22/21 18:14 86 143/94 (110) 99 Room Air 09/22/21 18:07 20 98 Room Air 09/22/21 17:44 88 139/85 (103) 100 Room Air 09/22/21 17:27 20 99 Room Air 09/22/21 17:05 99 20 131/68 (89) 100 Room Air 09/22/21 16:59 20 98 Room Air 09/22/21 16:59 95 142/80 09/22/21 16:39 86 142/80 (100) 98 Room Air 09/22/21 16:34 86 138/78 (98) 99 Room Air 09/22/21 16:29 99 158/95 (116) 99 Room Air 09/22/21 16:19 92 145/80 (101) 98 Room Air 09/22/21 16:14 98 147/81 09/22/21 16:14 96 137/77 (97) 99 Room Air 09/22/21 16:10 98 20 147/81 (103) 98 Room Air 09/22/21 16:01 95 22 163/87 (112) 98 Room Air 09/22/21 15:57 100 187/114 09/22/21 15:50 22 98 Room Air 09/22/21 15:28 97.7 97 22 163/87 (112) 99 Room Air 97.7 Vital Signs Date Time Temp Pulse Resp B/P (MAP) Pulse Ox O2 Delivery O2 Flow Rate FiO2 09/22/21 16:14 98 147/81 09/22/21 16:10 98 20 147/81 (103) 98 Room Air 09/22/21 16:01 95 22 163/87 (112) 98 Room Air 09/22/21 15:57 100 187/114 09/22/21 15:50 22 98 Room Air 09/22/21 15:28 97.7 97 22 163/87 (112) 99 Room Air 97.7 EKG: EKG: EKG done at [address] Oliveira at 1533 shows sinus rhythm with some axis d eviation to the left with a rate of 90, with a AL interval of 122 ms with a QTC of 464 ms [] Radiology/Procedures: Radiology/Procedures: REASON: CHEST PAIN PROCEDURE: PORTABLE CHEST 1V XR CHEST 1V History: Reason: CHEST PAIN / Spl. Instructions: / History: Comparison: March 25, 2018 Findings: No consolidation or pleural effusion. Normal heart size. No pneumothorax. Impression: 1. No acute cardiopulmonary process. Electronically signed by: Louie Tucker DO (09/22/2021 4:05 PM) [id number][] Course & Med Decision Making: Course & Med Decision Making Pertinent Labs and Imaging studies reviewed. (See chart for details) [address] Parks who is agreeable to admitting this patient for chest pain, he did request a consult to cardiology for further evaluation of the chest pain and the past medical history of a decreased ejection fracture. Patient will admitted to telemetry. Dragon Disclaimer: Dragon Disclaimer: This electronic medical record was generated, in whole or in part, using a voice recognition dictation system. Departure Departure Impression: Primary Impression: Chest pain Qualified Codes: R07.9 - Chest pain, unspecified Disposition: 09 ADMITTED INPATIENT Admitting Physician: Gerardo Parks Condition: STABLE Referrals: HARLEY BOLDEN PA-C (PCP) RAMA ALLEN APRN Sep 22, 2021 15:44
[2021-09-22] MEDS ORDERED: ASPIRIN CHEWABLE 81 MG TABLET. PO ONE (15:45)
[2021-09-22] MEDS: MORPHINE SULFATE 2 MG/ML INJ. IV/SQ PRN ×4 (15:50→18:43)
[2021-09-22] MEDS: NITROGLYCERIN SUBLINGUAL 0.4 MG BOTTLE OF 25. SL PRN ×3 (15:57→16:59)
[2021-09-22 15:59] LABS: BASO # 0.1 x10^3/uL (0.0-0.2); BASO % 1 % (0-3); EOS # 0.1 x10^3/uL (0.0-0.7); EOS % 1 % (0-3); HEMATOCRIT 43.2 % (39.0-53.0); HEMOGLOBIN 14.9 g/dL (13.0-17.5); LYMPH # 2.8 x10^3/uL (1.0-4.8); LYMPH % 27 % (24-48); MEAN CORPUSCULAR HEMOGLOBIN 32 pg (25-35); MEAN CORPUSCULAR HGB CONC 35 g/dL (31-37); MEAN CORPUSCULAR VOLUME 92 fL (79-100); MONO # 0.6 x10^3/uL (0.0-1.1); MONO % 6 % (0-9); NEUT # 6.6 x10^3/uL (1.8-7.7); NEUT % 65 % (31-73); PLATELET COUNT 285 x10^3/uL (140-400); WHITE BLOOD COUNT 10.1 x10^3/uL (4.0-11.0)
--- NOTE | 2021-09-22 16:08 | RAD ---
XR CHEST 1V History: Reason: CHEST PAIN / Spl. Instructions: / History: Comparison: March 25, 2018 Findings: No consolidation or pleural effusion. Normal heart size. No pneumothorax. Impression: 1. No acute cardiopulmonary process. Electronically signed by: Louie Tucker DO (09/22/2021 4:05 PM) [id number]
[2021-09-22 16:09] LABS: CALCIUM 8.8 mg/dL (8.5-10.1); CREATININE 1.1 mg/dL (0.7-1.3); GFR 70.3; PARTIAL THROMBOPLASTIN TIME 34 SEC (24-38); POTASSIUM 3.6 mmol/L (3.5-5.1); PROTHROMBIN TIME PATIENT 13.8 SEC (11.7-14.0)
[2021-09-22 16:14] LABS: ALBUMIN 3.6 g/dL (3.4-5.0); TOTAL BILIRUBIN 0.4 mg/dL (0.2-1.0); TOTAL PROTEIN 7.3 g/dL (6.4-8.2)
[2021-09-22 16:27] LABS: D-DIMER < 0.27 ug/mlFEU (0.00-0.50)
[2021-09-22] MEDS: MORPHINE SULFATE 2 MG/ML INJ. IVP PRN ×2 (20:17→22:49)
[2021-09-22 20:30] VITALS: BP 146/101
[2021-09-22] MEDS ORDERED: CYCL10TA19 PO (21:15)
[2021-09-22] MEDS ORDERED: ARIP15TA3 PO (21:15)
[2021-09-22] MEDS ORDERED: INSU100V6 SQ (21:15)
[2021-09-22] MEDS ORDERED: DOXE10CA PO (21:15)
[2021-09-22] MEDS ORDERED: PANT40TA77 PO (21:15)
[2021-09-22] MEDS ORDERED: ALPR1TAB6 PO (21:15)
[2021-09-22] MEDS ORDERED: PREG150C PO (21:15)
[2021-09-22] MEDS ORDERED: METF-658 PO (21:15)
[2021-09-22] MEDS: PREGABALIN 75 MG CAPSULE PO SCH (21:47)
[2021-09-22] MEDS ORDERED: DOXEPIN HCL 10 MG CAPSULE. PO SCH (22:00)
[2021-09-22] MEDS ORDERED: ALPRAZolam 1 MG TABLET PO SCH (22:00)
[2021-09-22] MEDS ORDERED: CYCLOBENZAPRINE 10 MG TABLET. PO SCH (22:00)
--- NOTE | 2021-09-22 22:41 | NUR ---
Patient arrived to room 203 at 2004. Patient attached to tele monitor. Patient SR on monitor. Patent IV present, patient on RA, complains of chest pain 8/10 radiating to L side and back. Patient oriented and pleasant, able to walk with steady gait. Patient's called and med rec obtained. Dr. Parks called, orders received to restart all home meds. Patient's prescription for Doxepin specifies 1-3 pills QHS. Patient requested 2 for tonight. Oriented patient to unit routines, call light, bed controls, tv controls, diet, activity, and POC. Patient stable at this time.
[2021-09-22 22:54] VITALS: BP 118/80
[2021-09-23] MEDS: MORPHINE SULFATE 2 MG/ML INJ. IVP PRN ×4 (01:36→11:23)
[2021-09-23 03:00] VITALS: BP 126/72
[2021-09-23 07:30] VITALS: BP 139/85
[2021-09-23] MEDS ORDERED: PANTOPRAZOLE 40 MG TABLET.DR. PO SCH (07:30)
[2021-09-23] MEDS ORDERED: IPRATRPIUM/ALBUTEROL 0.5/2.5MG 3 ML NEBU. NEB SCH (08:00)
[2021-09-23] MEDS ORDERED: BUDESONIDE 0.5 MG/2 ML NEBU. NEB SCH (08:00)
[2021-09-23] MEDS ORDERED: metFORMIN 500 MG TABLET PO SCH (08:00)
[2021-09-23] MEDS ORDERED: CYCLOBENZAPRINE 10 MG TABLET. PO PRN (08:15)
[2021-09-23] MEDS: INSULIN LISPRO 300 UNITS/3 ML VIAL. SQ SCH ×2 (08:22→12:00)
--- NOTE | 2021-09-23 08:38 | PDOC ---
Provider Note Date of Service: DATE: 09/23/21 TIME: 08:37 Provider Note dictated, suspect chest wall pain source- will get xr and stress echo as he has risks of dm, smoking Justifications for Admission Other Justification KEIKO DIAZ MD Sep 23, 2021 08:38
--- NOTE | 2021-09-23 08:57 | HP ---
DATE OF SERVICE: 09/23/2021 ADMIT DATE: 09/22/2021 CHIEF COMPLAINT: Chest pain. HISTORY OF PRESENT ILLNESS: A 50-year-old white male with history of insulin-dependent diabetes, obesity and bipolar disorder, seen in the office by yamilka Obregon, with a 2-day history of left-sided anterior chest pain, lower in the chest that seems to be worsened by activity and relieved some degree by rest. He does not recall any injury. Denies cough, fever, chills, rash, dyspnea, or radiation of the pain. He had a normal EKG, had a heart catheterization about 5 years ago, which apparently was normal. He has good diabetic control on his current meds and no other known medical problems. PAST MEDICAL HISTORY: A1c most recently was below 7. According to the patient with a combination of Humalog with meals and metformin. He also takes Abilify and pantoprazole. PAST SURGICAL HISTORY: Surgically, he has had shoulder surgeries, but no abdominal or chest surgery. No previous cardiac history as mentioned. SOCIAL HISTORY: Does smoke about half a pack to a pack a day. He is . 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 FAMILY HISTORY: Unremarkable. REVIEW OF SYSTEMS: Unremarkable. OBJECTIVE: ENT: All within normal limits. NECK: No masses, nodes or bruits. LUNGS: Clear without tachypnea or dullness. CARDIOVASCULAR: Regular rate. No irregular beat or murmur or rub. Tender along the left anterior ribs and inferior area. No rash or trauma seen. ABDOMEN: Soft, benign, nontender. No masses or organomegaly. EXTREMITIES: Good pedal and radial pulses. No joint or skin lesions. NEUROLOGIC: Physiologic. ASSESSMENT: Left lower chest pain, suspect is more structural in nature given the tenderness. Certainly has risk factors for coronary artery disease, mainly tobacco and diabetes. PLAN: We will do a chest echo and plain films as well to evaluate and Cardiology consult is pending as well. BONY SALINAS: German TID: [id number]
[2021-09-23] MEDS ORDERED: ARIPiprazole 5 MG TABLET PO SCH (09:00)
[2021-09-23] MEDS: PREGABALIN 75 MG CAPSULE PO SCH (09:50)
--- NOTE | 2021-09-23 09:57 | RAD ---
EXAM: Left ribs, 4 views. HISTORY: Pain. COMPARISON: 07/22/2020 FINDINGS: 4 views of the left ribs are obtained. There are suspected healed lateral left fourth, fift h, sixth and seventh rib fractures. No convincing acute fracture is seen. There is mild lateral left pleural thickening likely due to extrapleural fat. There is no pneumothorax or pleural effusion. Ther e are incidental calcified granulomas. IMPRESSION: Healed lateral left rib fractures. No convincing acute fracture. Electronically signed by: Gardenia Rich MD (09/23/2021 9:55 AM) [id number]
--- NOTE | 2021-09-23 10:41 | EKG ---
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
--- NOTE | 2021-09-23 10:41 | EKG ---
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
--- NOTE | 2021-09-23 10:48 | PDOC2 ---
CARDIAC CONSULT DATE OF CONSULT Date of Consult DATE: 09/23/21 TIME: 10:30 REASON FOR CONSULT Reason for Consult: Chest pain REFERRING PHYSICIAN Referring Physician: Martin SOURCE Source: Chart review, Patient HISTORY OF PRESENT ILLNESS HISTORY OF PRESENT ILLNESS This is a pleasant 50 yo male admitted for complains of chest pain. Reports of throbbing left lower chest reproducible with palpation. This radiates to immediate back. No SOA no nausea or vomiting. Denies any recent falls, injury or MVA. No palpitations. He did broke his left ribs a yr ago. He did lift a coffee table last Wednesday. No prior hx of CAD, VTE. PAST MEDICAL HISTORY Cardiovascular: HTN, Other (NICM) Pulmonary: COPD, Pulmonary embolus, Other (DUYEN) CENTRAL NERVOUS SYSTEM: Other (No pertinent history) GI: GERD Heme/Onc: No pertinent hx Hepatobiliary: No pertinent hx Psych: Anxiety Musculoskeletal: Osteoarthritis Rheumatologic: No pertinent hx Infectious disease: No pertinent hx ENT: No pertinent hx Renal/: No pertinent hx Endocrine: Diabetes (2) Dermatology: No pertinent hx PAST SURGICAL HISTORY Past Surgical History: Arthroscopy (Bilateral RTC repair), Other (Cindy-en-Y) FAMILY HISTORY Family History: Coronary Artery Disease (mother) SOCIAL HISTORY Smoke: <1 pack per day (37 yrs) ALCOHOL: none Drugs: None Lives: with Family CURRENT MEDICATIONS CURRENT MEDICATIONS Current Medications Medications (Trade) Dose Ordered Sig/Darrius Route PRN Reason Start Time Stop Time Status Last Admin Dose Admin Aspirin (Aspirin Chewable) 324 mg 1X ONCE PO 09/22/21 15:45 09/22/21 15:46 DC 09/22/21 15:50 Nitroglycerin (Nitrostat) 0.4 mg PRN Q5MIN PRN SL CP RATING > 1/10 09/22/21 15:45 09/22/21 22:50 DC 09/22/21 16:59 Morphine Sulfate (Morphine Sulfate) 2 mg PRN Q15MIN PRN IV/SQ PAIN GREATER THAN 3/10 09/22/21 15:45 09/22/21 22:50 DC 09/22/21 18:43 Morphine Sulfate (Morphine Sulfate) 2 mg PRN Q2HR PRN IVP PAIN 09/22/21 17:00 09/23/21 16:59 09/23/21 07:42 Alprazolam (Xanax) 1 mg HS PO 09/22/21 22:00 09/22/21 21:44 Cyclobenzaprine HCl (Flexeril) 10 mg TID PO 09/22/21 22:00 09/23/21 08:11 DC 09/22/21 21:47 Doxepin HCl (SINequan) 30 mg HS PO 09/22/21 22:00 09/22/21 21:44 Insulin Human Lispro (HumaLOG) 10 units TIDWMEALS SQ 09/23/21 08:00 09/23/21 08:22 Metformin HCl (Glucophage) 500 mg BIDWMEALS PO 09/23/21 08:00 09/23/21 07:42 Pantoprazole Sodium (Protonix) 40 mg BIDAC PO 09/23/21 07:30 09/23/21 07:42 Aripiprazole (Abilify) 15 mg DAILY PO 09/23/21 09:00 09/23/21 09:51 Pregabalin (Lyrica) 150 mg BID PO 09/22/21 22:00 09/23/21 09:50 ALLERGIES ALLERGIES: Coded Allergies: No Known Drug Allergies (Unverified , 09/22/21) ROS Review of System 14 point ROS evaluated with pertinent positives noted per HPI PHYSICAL EXAM General: Alert, Oriented X3, Cooperative, No acute distress HEENT: Atraumatic, Mucous membr. moist/pink Lungs: Clear to auscultation, Normal air movement Heart: Regular rate (SR), Normal S1, Normal S2, No murmurs Abdomen: Soft, No tenderness, Other (obesity) Extremities: No cyanosis, No edema Skin: No breakdown, No significant lesion Neuro: Normal speech, Sensation intact Psych/Mental Status: Mental status NL, Mood NL MUSCULOSKELETAL: Full range of motion without pain VITALS/I&O VITALS/I&O: Vital Signs Date Time Temp Pulse Resp B/P (MAP) Pulse Ox O2 Delivery O2 Flow Rate FiO2 09/23/21 08:22 Room Air 09/23/21 07:30 98.2 85 16 139/85 (103) 100 98.2 I & O 09/22/21 09/22/21 09/23/21 15:00 23:00 07:00 Intake Total 200 ml Balance 200 ml LABS Lab: Laboratory Tests Test 09/22/21 15:42 09/22/21 18:45 09/22/21 21:45 09/23/21 07:46 White Blood Count 10.1 x10^3/uL (4.0-11.0) Red Blood Count 4.70 x10^6/uL (4.30-5.70) Hemoglobin 14.9 g/dL (13.0-17.5) Hematocrit 43.2 % (39.0-53.0) Mean Corpuscular Volume 92 fL (79-100) Mean Corpuscular Hemoglobin 32 pg (25-35) Mean Corpuscular Hemoglobin Concent 35 g/dL (31-37) Red Cell Distribution Width 14.0 % (11.5-14.5) Platelet Count 285 x10^3/uL (140-400) Neutrophils (%) (Auto) 65 % (31-73) Lymphocytes (%) (Auto) 27 % (24-48) Monocytes (%) (Auto) 6 % (0-9) Eosinophils (%) (Auto) 1 % (0-3) Basophils (%) (Auto) 1 % (0-3) Neutrophils # (Auto) 6.6 x10^3/uL (1.8-7.7) Lymphocytes # (Auto) 2.8 x10^3/uL (1.0-4.8) Monocytes # (Auto) 0.6 x10^3/uL (0.0-1.1) Eosinophils # (Auto) 0.1 x10^3/uL (0.0-0.7) Basophils # (Auto) 0.1 x10^3/uL (0.0-0.2) Prothrombin Time 13.8 SEC (11.7-14.0) Prothrombin Time INR 1.1 (0.8-1.1) Activated Partial Thromboplast Time 34 SEC (24-38) D-Dimer (Annmarie) < 0.27 ug/mlFEU Sodium Level 138 mmol/L (136-145) Potassium Level 3.6 mmol/L (3.5-5.1) Chloride Level 102 mmol/L (98-107) Carbon Dioxide Level 26 mmol/L (21-32) Anion Gap 10 (6-14) Blood Urea Nitrogen 13 mg/dL (8-26) Creatinine 1.1 mg/dL (0.7-1.3) Estimated GFR (Cockcroft-Gault) 70.3 BUN/Creatinine Ratio 12 (6-20) Glucose Level 105 mg/dL (70-99) H Calcium Level 8.8 mg/dL (8.5-10.1) Total Bilirubin 0.4 mg/dL (0.2-1.0) Aspartate Amino Transferase (AST) 18 U/L (15-37) Alanine Aminotransferase (ALT) 31 U/L (16-63) Alkaline Phosphatase 81 U/L (46-116) Troponin I High Sensitivity 6 ng/L (4-75) 7 ng/L (4-75) 8 ng/L (4-75) MO-Nil-K-Type Natriuretic Peptide 105 pg/mL (0-124) Total Protein 7.3 g/dL (6.4-8.2) Albumin 3.6 g/dL (3.4-5.0) Albumin/Globulin Ratio 1.0 (1.0-1.7) Glucose (Fingerstick) 213 mg/dL (70-99) H Laboratory Tests 09/22/21 15:42 Laboratory Tests 09/22/21 15:42 HEART CATH HEART CATH Conclusion 1. No significant coronary artery disease 2. Moderate global left ventricular systolic dysfunction with ejection fraction estimated at 35% Recommendations Optimization of medical therapy for non-ischemic cardiomyopathy Consider repeat echo in 3 months to evaluate need for AICD implantation DATE: 03/19/17 1012 ASSESSMENT/PLAN ASSESSMENT/PLAN 1. Atypical chest pain; suspect MSK, reproducible 2. COPD with continued tobaccoism 3. GERD: on PPI 4. DM2 5. HTN: controlled , no regimen 6. Hx of Anxiety 7. Hx of NICM: noted in 2017 Recommendations 1. Outpt MPI/TTE given his cardiac risk factors. Follow up in office 2. Home BP monitoring and could start on ACEi per BP trend 3. FLP, TSH 4. Smoking cessation BENITO BENJAMIN APRN Sep 23, 2021 10:48
[2021-09-23 11:02] VITALS: BP 122/78
[2021-09-23 12:06] LABS: CHOLESTEROL/HDL RATIO 6.5
[2021-09-23] MEDS ORDERED: PERFLUTREN PROTEIN-A MICROSPHR 0.22 MG/ML 3 ML VIAL. IV ONE (12:30)
[2021-09-23] MEDS ORDERED: FENOFIBRATE 54 MG TABLET. PO SCH (13:00)
--- NOTE | 2021-09-23 13:15 | NUR ---
SW following. Discussed with RN, pt from home, room air, cardiac diet. Discharge order for home with self care. RN advised no SW needs.
--- NOTE | 2021-09-23 13:18 | NUR ---
Discharge Note: ANABEL VALDIVIA Discharge instructions and discharge home medications reviewed with Patient and a copy given. All questions have been answered and understanding verbalized. The following instructions and handouts were given: discharge instructions, education and follow up recommendations. Discontinued lines and drains: Peripheral IV intact. Patient discharged to Home or Self Care with Self via Ambulated
--- NOTE | 2021-09-23 15:38 | DS ---
DATE OF DISCHARGE: 09/23/2021 HOSPITAL SUMMARY: The patient was admitted with exertional left lower chest pain. He did have some left chest wall tenderness on the anterior inferior rib cage. Laboratory studies were normal. Troponin was normal as was EKG and resting echo is pending at this time. I ordered an exercise echo, but this was changed by the agricultural consultant to a resting echo and then an outpatient Lexiscan to be done at a later time. Rib series appeared to show evidence of no acute injuries. The patient was stable without symptoms at the time that he left. FINAL DIAGNOSIS: Left chest pain secondary to costochondritis. OPERATIONS, PROCEDURES, COMPLICATIONS: None. CONSULTATION: Dr. Hill. DISPOSITION: Home meds remain the same. Lexiscan per the agricultural consultant and office followup with our office in 1 week. PROGNOSIS: Good. MARLY DR: MOY/bere TID: [id number]
[2021-09-23] MEDS ORDERED: ATORVASTATIN CALCIUM 20 MG TABLET PO SCH (21:00)
--- NOTE | 2021-09-24 07:51 | CARD ---
MR#: [id number] Date of Study: 09/23/2021 Ordering Physician: KEIKO DIAZ, Referring Physician: KEIKO DIAZ Tech: Jumana Piper ALICE APPROVED REPORT EXAM: Two-dimensional and M-mode echocardiogram with Doppler and color Doppler. Other Information Quality : Technically LimitedHR: 73bpm Rhythm : NSR INDICATION Chest Pain Echo Enhancing Agent Indication: Endocardial border delineation Agent/Amount Used: Optison 3mL RISK FACTORS Hypertension Obesity Diabetes 2D DIMENSIONS RVDd3.8 (2.9-3.5cm)Left Atrium(2D)3.5 (1.6-4.0cm) IVSd1.0 (0.7-1.1cm)Aortic Root(2D)3.5 (2.0-3.7cm) LVDd6.5 (3.9-5.9cm)LVOT Diameter2.2 (1.8-2.4cm) PWd1.2 (0.7-1.1cm)LVDs4.5 (2.5-4.0cm) FS (%) 30.6 %SV122.0 ml LVEF(%)57.0 (>50%) Aortic Valve AoV Peak Riley.126.0cm/sAoV VTI23.7cm AO Peak GR.6.3mmHgLVOT Peak Riley.95.0cm/s AO Mean GR.3mmHgAVA (VMAX)2.96cm2 Mitral Valve MV E Wswkfrkf79.2cm/sMV DECEL [id number] MV A Yeeihrqd00.0cm/sE/A Ratio0.8 LEFT VENTRICLE The Left Ventricle is moderately dilated. There is borderline to mild concentric left ventricular hyp ertrophy. The left ventricular systolic function is mildly impaired. Estimated ejection fraction 40-4 5%. Transmitral Doppler flow pattern is Grade I-abnormal relaxation pattern. RIGHT VENTRICLE The right ventricle is mildly dilated. The right ventricle is mildly hypertrophied. The right ventric ular systolic function is normal. ATRIA The left atrium size is normal. The right atrium is borderline dilated. The interatrial septum is int act with no evidence for an atrial septal defect or patent foramen ovale as noted on 2-D or Doppler i maging. AORTIC VALVE The aortic valve is normal in structure and function. Doppler and Color Flow revealed no significant aortic regurgitation. There is no significant aortic valvular stenosis. MITRAL VALVE The mitral valve is normal in structure and function. There is no evidence of mitral valve prolapse. There is no mitral valve stenosis. Doppler and Color-flow revealed trace mitral regurgitation. TRICUSPID VALVE The tricuspid valve is normal in structure and function. Doppler and Color Flow revealed no tricuspid valve regurgitation noted. There is no tricuspid valve stenosis. PULMONIC VALVE The pulmonary valve is normal in structure and function. Doppler and Color Flow revealed no pulmonic valvular regurgitation. GREAT VESSELS The aortic root is normal in size. The ascending aorta is normal in size. The IVC is normal in size a nd collapses >50% with inspiration. PERICARDIAL EFFUSION There is no evidence of significant pericardial effusion. Critical Notification Critical Value: No <Conclusion> The left ventricular systolic function is mildly impaired. Estimated ejection fraction 40-45%. Transmitral Doppler flow pattern is Grade I-abnormal relaxation pattern. Trace mitral regurgitation. There is no evidence of significant pericardial effusion. Signed by : Gerardo Bob, Electronically Approved : 09/24/2021 07:50:20
== END 2021-09-23 13:18 | disposition home or self-care (01) | DRG 206 ==
LOC: ER 15:21 → ED HOLD 16:40 → 2 NORTH 16:56
PROVIDERS: ADMIT Family Medicine; ATTEND Family Medicine
DX: M94.0 Chondrocostal junction syndrome [Tietze] (principal); I42.8 Other cardiomyopathies; E11.9 Type 2 diabetes mellitus without complications; E78.00 Pure hypercholesterolemia, unspecified; F17.210 Nicotine dependence, cigarettes, uncomplicated; F31.9 Bipolar disorder, unspecified; I10 Essential (primary) hypertension; J44.9 Chronic obstructive pulmonary disease, unspecified; E66.9 Obesity, unspecified; F41.9 Anxiety disorder, unspecified; Z68.38 Body mass index [BMI] 38.0-38.9, adult; G47.33 Obstructive sleep apnea (adult) (pediatric); M19.90 Unspecified osteoarthritis, unspecified site; K21.9 Gastro-esophageal reflux disease without esophagitis; Z79.4 Long term (current) use of insulin; Z82.49 Family history of ischemic heart disease and other diseases of the circulatory system; Z86.711 Personal history of pulmonary embolism; Z98.84 Bariatric surgery status; Z87.01 Personal history of pneumonia (recurrent); I25.2 Old myocardial infarction
CPT/HCPCS: 36415; 71045; 71100; 80053; 80061; 82962; 83880; 84443; 84484; 85025; 85379; 85610; 85730; 93005; 93017; 93350; J1815; J2270; Q9956; 99285-25; G0378

== ENCOUNTER → 2021-09-29 | Outpatient (CLI) | payer OTHER ==
[2021-09-23 11:02] VITALS: BP 122/78
[~2021-09-29] MED LIST changes: +ALPR1TAB6 PO; +ARIP15TA3 PO; +DEXAMETHASONE PRES.FREE 10 MG/ML VIAL. ONE; +INSU100V6 SQ; +IOHEXOL 180 MG/ML 10 ML VIAL. ONE; +METF-658 PO; +PANT40TA77 PO; +PREG150C PO
--- NOTE | 2021-09-29 09:15 | PDOC4 ---
Procedure Note: ICD 10 Code: ICD 10 Code: M54.16 M51.36 Procedure Note: Patient was consented for lumbar epidural steroid injection with fluoroscopic guidance. Risks were discussed including but not limited to: Bleeding, infection, possibility of epidural hematoma and subsequent neurological compromise, dural puncture, headaches, spinal cord and/or nerve damage, side effects of steroid medication, and poor results regarding pain control. Patient understands and wished to proceed. Procedure is lumbar epidural steroid injection under local anesthetic using sterile prep and drape at the L4-5 level using C-arm fluoroscopic guidance in both AP and lateral views medications injected is 20 mg dexamethasone +10mL preservative-free normal saline and 2 mL contrast- condition at discharge is stable patient tolerated procedure well had no complications. MARCOS CH MD Sep 29, 2021 09:15
--- NOTE | 2021-09-29 09:15 | PDOC ---
Progress Note - Pain Clinic Date of Service: DOS: DATE: 09/29/21 TIME: 09:10 Diagnosis: Dx: Lumbar radiculopathy with lumbar degenerative disc disease History or Present Illness: HPI: 50-year-old male returns for follow-up status post lumbar epidural steroid injection x1. Patient reports he did very well after the first injection with pain in the low back and now significant improved about 60% improvement patient's chief complaint now is mid upper back which is new for him between the ribs and the shoulder blades to some extent on the mid back and upper back patient reports is an 8 on scale 10 at its worst over the past week 6 on average 6 its least and is a 6 today patient is aching and dull patient still with some lower extremity pain bilaterally in the posterior gluteus lateral thighs anterior thighs medial thighs but much better than it was in the low back is doing much better as well patient reports the mid upper back now is his chief complaint. Patient reports no recent injury or accident has not strained his back or with anything heavy in the meantime. Patient reports no bowel or bladder incontinence no loss of motor function. Patient is been increase his distance walking doing household activities as well as at work activities sleeping much better as well as generally not awaken him from sleep currently. Physical Exam: VS: Blood pressure is 140/91 pulse 85 respirations 18 temperature is 90.1 F height is 6 feet 1 inches weight is 297 pounds. PE: PHYSICAL EXAMINATION: GENERAL: The patient is awake, alert, oriented, appropriate, very pleasant in demeanor HEENT: Shows normocephalic, atraumatic. Extraocular movements are intact and symmetrical. Oral cavity: Mucous membranes moist and pink. Dentition is intact. NECK: Shows anterior throat supple without palpable lymphadenopathy noted. Swallow reflex symmetrical. CHEST: Shows normal on inspection. Breath sounds are clear bilaterally. HEART: Shows S1, S2 clear. No murmurs auscultated. ABDOMEN: Soft, nontender, nondistended. No palpable organomegaly is noted. BACK: Shows spine grossly in the midline. Normal-appearing cervical lordotic curvature. There is mildly increased thoracic kyphosis, some minor flattening of the lumbar lordotic curvature. Lumbar paraspinous muscles show symmetrical on inspection, on palpation shows some moderate tenderness diffusely throughout the upper, middle and lower distribution of the paraspinous muscles without specific trigger points, without radiation of pain. Thoracic spine shows some moderate tenderness diffusely in the mid and lower distribution of thoracic paraspinous musculature without specific trigger points but diffusely tender bilaterally without radiation. The patient has good rotational motion of the lumbar spine, both laterally as well as extension and flexion without significant difficulty. No tenderness over the spinous processes, sacrum or sacroiliac regions. EXTREMITIES: Lower extremities show deep tendon reflexes 1+ in the patellar and tendo calcaneus tendons. Motor exam is 4 on a scale of 5 with right dorsiflexion, extension, quadriceps and hamstring flexion and 4/5 on the left. Peripheral pulses are 1+ posterior tibial. No peripheral edema is noted bilaterally. Lower extremities are warm and dry. SKIN: Shows warm and dry, good turgor. No edema. No sores, rashes or bruising throughout. Procedure: Procedure: Options were discussed with patient. Patient's old chart was reviewed his current medication regimen updated current review of systems updated today as well. We will proceed with a lumbar epidural steroid injection today with fluoroscopic guidance. Risks were discussed including but not limited to: Bleeding, infection, possibility of epidural hematoma and subsequent hailee rological compromise, dural puncture, headaches, spinal cord and/or nerve damage, side effects of steroid medication, and poor results regarding pain control. Patient understands and wished to proceed. Patient will return to the clinic in approximately 2 weeks for follow-up, was counseled as to return appointment, activity level, and side effect to be aware of. Medication Injected: Med Injected: Procedure is lumbar epidural steroid injection under local anesthetic using st erile prep and drape at the L4-5 level using C-arm fluoroscopic guidance in both AP and lateral views medications injected is 20 mg dexamethasone +10mL preservative-free normal saline and 2 mL contrast- condition at discharge is stable patient tolerated procedure well had no complications. Condition at Discharge: Condition at Discharge: Condition at discharge stable, patient tolerated procedure well and no complications. MARCOS CH MD Sep 29, 2021 09:15
== END | disposition home or self-care (01) ==
LOC: PNCL 09:00
PROVIDERS: ATTEND Anesthesiology
DX: M51.16 Intervertebral disc disorders with radiculopathy, lumbar region (principal); I10 Essential (primary) hypertension; E78.00 Pure hypercholesterolemia, unspecified; J44.9 Chronic obstructive pulmonary disease, unspecified; G47.30 Sleep apnea, unspecified; E66.9 Obesity, unspecified; K21.9 Gastro-esophageal reflux disease without esophagitis; M19.90 Unspecified osteoarthritis, unspecified site; E03.9 Hypothyroidism, unspecified; E11.9 Type 2 diabetes mellitus without complications; F41.9 Anxiety disorder, unspecified; F32.9 Major depressive disorder, single episode, unspecified; F17.210 Nicotine dependence, cigarettes, uncomplicated; Z79.84 Long term (current) use of oral hypoglycemic drugs; Z79.899 Other long term (current) drug therapy; Z98.890 Other specified postprocedural states
CPT/HCPCS: 62323; J1100; Q9965

== ENCOUNTER → 2021-10-14 | Outpatient (CLI) | payer OTHER ==
[2021-09-23 11:02] VITALS: BP 122/78
--- NOTE | 2021-10-14 14:57 | PDOC ---
Progress Note - Pain Clinic Date of Service: DOS: DATE: 10/14/21 TIME: 14:48 Diagnosis: Dx: Lumbar radiculopathy with lumbar degenerative disc disease History or Present Illness: HPI: 50-year-old male returns for follow-up status post lumbar epidural steroid injection x2. Patient reports about 50% improvement but only lasting about a week or so with the injections patient reports the pain is returning now and has new pain now that is in the legs more than it was in the back previously patient reports that her bilateral lower extremities posterior gluteus posterior lateral thighs anterior thighs and across the low back and also some new pain between the shoulder blades which is very tight and stabbing. Patient reports 6 on scale 10 is worse over the past week 6 on average 6 at its least and is a 6 today patient report is worse with standing walking changing positions disturbed sleep better in 4 to 5 hours he can usually reposition however get back to sleep patient reports is worse with working standing changing positions getting up from a seated position but better with sitting still or laying still patient reports tingling and stabbing in the back and tight in the upper back patient reports no bowel or bladder incontinence no loss of motor function but significant fatigability of the lower extremities after the last visit. Physical Exam: VS: Blood pressure is 132/86 pulse 77 respirations 18 temperature 98.1 F height 6 foot 1 inch, his weight is 292 pounds. PE: PHYSICAL EXAMINATION: GENERAL: The patient is awake, alert, oriented, appropriate, very pleasant in demeanor HEENT: Shows normocephalic, atraumatic. Extraocular movements are intact and symmetrical. Oral cavity: Mucous membranes moist and pink. Dentition is int act. NECK: Shows anterior throat supple without palpable lymphadenopathy noted. Swallow reflex symmetrical. CHEST: Shows normal on inspection. Breath sounds are clear bilaterally, distant but no rales rhonchi or wheezes auscultated. HEART: Shows S1, S2 clear. No murmurs auscultated. ABDOMEN: Soft, nontender, nondistended. No palpable organomegaly is noted. BACK: Shows spine grossly in the midline. Normal-appearing cervical lordotic curvature. There is slightly increased thoracic kyphosis, some minor flattening of the lumbar lordotic curvature. Thoracic paraspinous muscles show symmetrical but with patient is also very tender musculature between the shoulder blades in the rhomboid distribution of the thoracic paraspinous muscles no asymmetry no specific trigger points are very firm and tender bilaterally diffusely tender without radiation. Lumbar paraspinous muscles show symmetrical on inspection, on palpation shows some moderate tenderness diffusely throughout the upper, middle and lower distribution of the paraspinous muscles without specific trigger points, without radiation of pain. The patient has good rotational motion of the lumbar spine, both laterally as well as extension and flexion without significant difficulty. EXTREMITIES: Lower extremities show deep tendon reflexes 1+ in the patellar and tendo calcaneus tendons. Motor exam is 4 on a scale of 5 with right dors iflexion, extension, quadriceps and hamstring flexion and 4/5 on the left. Peripheral pulses are 1+ posterior tibial. No peripheral edema is noted bilaterally. Lower extremities are warm and dry to touch. SKIN: Shows warm and dry, good turgor. No edema. No sores, rashes or bruising throughout. Procedure: Procedure: Options were discussed with the patient. Patient chart was reviewed his current medication regimen updated current review of systems updated today as well. We will proceed with a lumbar epidural steroid injection today with fluoroscopic guidance. Risks were discussed including but not limited to: Bleeding, infection, possibility of epidural hematoma and subsequent neurological compromise, dural puncture, headaches, spinal cord and/or nerve damage, side effects of steroid medication, and poor results regarding pain control. Patient understands and wished to proceed. We discussed the increased muscular component of pain in the mid and upper back aspect in between the shoulder blades and discussed physical therapy and will make arrangements to start physical therapy and also discussed possible pool therapy in the future. Patient would like to see how he responds to today's injection and regular physical therapy, and will decide on pool therapy in the upcoming future. Medication Injected: Med Injected: Procedure is lumbar epidural steroid injection under local anesthetic using sterile prep and drape at the L4-5 level using C-arm fluoroscopic guidance in both AP and lateral views medications injected is 20 mg dexamethasone +10mL preservative-free normal saline and 2 mL contrast- condition at discharge is stable patient tolerated procedure well had no complications. Condition at Discharge: Condition at Discharge: Condition at discharge is stable, paced tolerated procedure well and had no complications. MARCOS CH MD Oct 14, 2021 14:57
--- NOTE | 2021-10-14 14:57 | PDOC4 ---
Procedure Note: ICD 10 Code: ICD 10 Code: M54.16 M51.36 Procedure Note: Patient was consented for lumbar epidural steroid injection with fluoroscopic guidance. Risks were discussed including but not limited to: Bleeding, infection, possibility of epidural hematoma and subsequent neurological compromise, dural puncture, headaches, spinal cord and/or nerve damage, side effects of steroid medication, and poor results regarding pain control. Patient understands and wished to proceed. Procedure is lumbar epidural steroid injection under local anesthetic using sterile prep and drape at the L4-5 level using C-arm fluoroscopic guidance in both AP and lateral views medications injected is 20 mg dexamethasone +10mL preservative-free normal saline and 2 mL contrast- condition at discharge is stable patient tolerated procedure well had no complications. MARCOS CH MD Oct 14, 2021 14:57
== END | disposition home or self-care (01) ==
LOC: PNCL 13:33
PROVIDERS: ATTEND Anesthesiology
DX: M51.16 Intervertebral disc disorders with radiculopathy, lumbar region (principal); J44.9 Chronic obstructive pulmonary disease, unspecified; I10 Essential (primary) hypertension; E78.00 Pure hypercholesterolemia, unspecified; G47.30 Sleep apnea, unspecified; K21.9 Gastro-esophageal reflux disease without esophagitis; E11.9 Type 2 diabetes mellitus without complications; E03.9 Hypothyroidism, unspecified; F41.9 Anxiety disorder, unspecified; F32.9 Major depressive disorder, single episode, unspecified; F17.210 Nicotine dependence, cigarettes, uncomplicated; Z79.4 Long term (current) use of insulin; Z79.899 Other long term (current) drug therapy; Z98.890 Other specified postprocedural states
CPT/HCPCS: 62323; J1100; Q9965

== ENCOUNTER 2021-12-03 09:28 | Emergency (ER) | payer OTHER ==
[~2021-12-03] VITALS: Ht 185.4 cm; Wt 131.6 kg
[~2021-12-03 09:28] MED LIST changes: -DEXAMETHASONE PRES.FREE 10 MG/ML VIAL. ONE; -IOHEXOL 180 MG/ML 10 ML VIAL. ONE
--- NOTE | 2021-12-03 09:50 | PHYS DOC ---
Past Medical History Past Medical History: Asthma, COPD, Diabetes-Type II, High Cholesterol, H ypertension, [place] Additional Past Medical Histor: PE, SEPSIS, PNEUMONIA, pancreatitis (RAMA ALLEN APRN) Past Surgical History: Other Additional Past Surgical Histo: BILATERAL SHOULDER,CARDIAC CATH, gastric bypass (RAMA ALLEN APRN) Smoking Status: Current Every Day Smoker Alcohol Use: None Drug Use: None (RAMA ALLEN APRN) General Adult EDM: Chief Complaint: ABDOMINAL PAIN HPI: HPI: Patient is a 51-year-old male who presents today with abdominal pain. Patient states the pain started approximately 5 days ago and is mostly located in the upper abdomen area, patient states he does have some nausea related to that but he is unable to vomit due to his past medical history of gastric bypass. Patient states he had gastric bypass approximately 2 years ago at [facility], he said he saw his surgeon that performed the gastric bypass a couple of weeks ago, he states he was placed on Protonix and was instructed to follow-up with his GI specialist. Patient states that he saw his primary care physician Dr. Parks and Dr. Parks has ordered a gallbladder ultrasound which patient states was scheduled December 18 but he states he continues to have abdominal pain. Patient states he does not drink alcohol on a regular basis but does drink caffeine and smoke, he states he has never been diagnosed gastritis or any other GI disorder. Patient denies chest pain, shortness of breath, or fever and chills. (RAMA ALLEN APRN) Review of Systems: Review of Systems: Constitutional: Denies fever or chills. [] Eyes: Denies change in visual acuity. [] HENT: Denies nasal congestion or sore throat. [] Respiratory: Denies cough or shortness of breath. [] Cardiovascular: Denies chest pain or edema. [] GI: abdominal pain, nausea, denies vomiting, bloody stools or diarrhea. [] : Denies dysuria. [] Musculoskeletal: Denies back pain or joint pain. [] Integument: Denies rash. [] Neurologic: Denies headache, focal weakness or sensory changes. [] Endocrine: Denies polyuria or polydipsia. [] Lymphatic: Denies swollen glands. [] Psychiatric: Denies depression or anxiety. [] (RAMA ALLEN APRN) Heart Score: C/O Chest Pain: No Risk Factors: Risk Factors: DM, Current or recent (<one month) smoker, HTN, HLP, family history of CAD, obesity. Risk Scores: Score 0 - 3: 2.5% MACE over next 6 weeks - Discharge Home Score 4 - 6: 20.3% MACE over next 6 weeks - Admit for Clinical Observation Score 7 - 10: 72.7% MACE over next 6 weeks - Early Invasive Strategies (RAMA ALLEN APRN) Allergies: Allergies: Allergies Coded Allergies Type Severity Reaction Last Updated Verified No Known Drug Allergies 12/03/21 No (RAMA ALLEN APRN) Physical Exam: PE: Constitutional: Well developed, well nourished, mild distress, non-toxic appearance. [] HENT: Normocephalic, atraumatic, bilateral external ears normal, oropharynx moist, no oral exudates, nose normal. [] Eyes: PERRLA, EOMI, conjunctiva normal, no discharge. [] Neck: Normal range of motion, no tenderness, supple, no stridor. [] Cardiovascular:Heart rate regular rhythm, no murmur [] Lungs & Thorax: Bilateral breath sounds clear to auscultation [] Abdomen: Abdomen is round and distended, tender in the upper abdomen area, bowel sounds are hypoactive no pulsatile masses noted Skin: Warm, dry, no erythema, no rash. [] Back: No tenderness, no CVA tenderness. [] Extremities: No tenderness, no cyanosis, no clubbing, ROM intact, no edema. [] Neurologic: Alert and oriented X 3, normal motor function, normal sensory function, no focal deficits noted. [] Psychologic: Affect normal, judgement normal, mood normal. [] (RAMA ALLEN APRN) Current Patient Data: Labs: Laboratory Tests Test 12/03/21 09:40 12/03/21 10:10 Urine Collection Type Unknown Urine Color (Auto) Light yellow Urine Turbidity Clear Urine pH (Auto) 5.5 Urine Specific [place] 1.012 Urine Protein (Auto) Negative mg/dL Urine Glucose (Auto)(UA) 200 mg/dL Urine Ketones (Auto) Negative mg/dL Urine Blood (Auto) Negative Urine Nitrite Negative Urine Bilirubin (Auto) Negative Urine Urobilinogen (Auto) Normal mg/dL Urine Leukocyte Esterase (Auto) Negative Urine RBC 0 /HPF Urine WBC 0 /HPF Urine Squamous Epithelial Cells Occ /LPF Urine Bacteria 0 /HPF White Blood Count 11.0 x10^3/uL Red Blood Count 4.93 x10^6/uL Hemoglobin 15.7 g/dL Hematocrit 45.3 % Mean Corpuscular Volume 92 fL Mean Corpuscular Hemoglobin 32 pg Mean Corpuscular Hemoglobin Concent 35 g/dL Red Cell Distribution Width 13.7 % Platelet Count 276 x10^3/uL Neutrophils (%) (Auto) 68 % Lymphocytes (%) (Auto) 25 % Monocytes (%) (Auto) 5 % Eosinophils (%) (Auto) 1 % Basophils (%) (Auto) 1 % Neutrophils # (Auto) 7.5 x10^3/uL Lymphocytes # (Auto) 2.8 x10^3/uL Monocytes # (Auto) 0.5 x10^3/uL Eosinophils # (Auto) 0.1 x10^3/uL Basophils # (Auto) 0.1 x10^3/uL Sodium Level 140 mmol/L Potassium Level 4.0 mmol/L Chloride Level 104 mmol/L Carbon Dioxide Level 25 mmol/L Anion Gap 11 Blood Urea Nitrogen 9 mg/dL Creatinine 1.1 mg/dL Estimated GFR (Cockcroft-Gault) 70.0 BUN/Creatinine Ratio 8 Glucose Level 141 mg/dL Calcium Level 8.8 mg/dL Total Bilirubin 0.4 mg/dL Aspartate Amino Transf (AST/SGOT) 18 U/L Alanine Aminotransferase (ALT/SGPT) 25 U/L Alkaline Phosphatase 83 U/L Total Protein 7.0 g/dL Albumin 3.6 g/dL Albumin/Globulin Ratio 1.1 Lipase 61 U/L Current Medications Medications (Trade) Dose Ordered Sig/Darrius Route PRN Reason Start Time Stop Time Status Last Admin Dose Admin Sodium Chloride 1,000 ml @ 999 mls/hr 1X ONCE IV 12/03/21 10:00 12/03/21 11:00 DC 12/03/21 10:41 Famotidine (Pepcid Vial) 20 mg 1X ONCE IVP 12/03/21 10:00 12/03/21 10:01 DC 12/03/21 10:41 Ketorolac Tromethamine (Toradol 15mg Vial) 15 mg 1X ONCE IVP 12/03/21 10:00 12/03/21 10:01 DC 12/03/21 10:42 Ondansetron HCl (Zofran) 4 mg 1X ONCE IVP 12/03/21 10:15 12/03/21 10:17 DC 12/03/21 10:42 Vital Signs: Vital Signs Date Time Temp Pulse Resp B/P (MAP) Pulse Ox O2 Delivery O2 Flow Rate FiO2 12/03/21 11:46 68 18 135/67 (89) 95 Room Air 12/03/21 11:16 70 20 138/72 (94) 95 Room Air 12/03/21 10:46 78 18 173/80 (111) 100 Room Air 12/03/21 09:32 97.8 88 24 168/93 (118) 97 Room Air 97.8 Vital Signs Date Time Temp Pulse Resp B/P (MAP) Pulse Ox O2 Delivery O2 Flow Rate FiO2 12/03/21 09:32 97.8 88 24 168/93 (118) 97 Room Air 97.8 (RAMA ALLEN APRN) EKG: EKG: [] (RAMA ALLEN SYSTEMS SECURITY CONSULTANT) Radiology/Procedures: Radiology/Procedures: REASON: epigastric pain PROCEDURE: ABDOMEN LTD US ABDOMEN LIMITED History: Reason: epigastric pain / Spl. Instructions: / History: Comparison: None. Technique: Transabdominal ultrasound images are obtained of the right upper quadrant. Findings: Liver is increased in echogenicity. Right hepatic lobe measures 19.9 cm. Portal flow is hepatopedal. Small polyps or adherent stones within the posterior gallbladder wall largest measures 0.4 cm. No gallbladder wall thickening or pericholecystic fluid. Common bile duct measures 3 mm in diameter. Visualized pancreas not well seen due to overlying structures. The right kidney measures 13.8 x 4.5 x 5.4 cm. No hydronephrosis. Heart and IVC not well seen due to overlying structures. IMPRESSION: 1. Hepatomegaly with increased echotexture, may indicate steatosis. 2. Small gallbladder polyps or adherent stones. Electronically signed by: Louie Tucker DO (12/03/2021 11:05 AM) [id number][] (RAMA ALLEN APRN) Course & Med Decision Making: Course & Med Decision Making Pertinent Labs and Imaging studies reviewed. (See chart for details) 1120 I reviewed radiological and laboratory results with patient did inform him there was no acute findings today that would explain his pain, patient is to continue taking his Protonix on a daily basis as was prescribed and also continue to follow-up with Dr. Parks in his office for further evaluation and management of his abdominal pain. Patient verbalized understanding of this and agreeable with the plan of care. (RAMA ALLEN APRN) Dragon Disclaimer: Dragon Disclaimer: This electronic medical record was generated, in whole or in part, using a voice recognition dictation system. (RAMA ALLEN APRN) Departure Departure Impression: Primary Impression: Abdominal pain Qualified Codes: R10.84 - Generalized abdominal pain Disposition: HOME / SELF CARE / HOMELESS Condition: STABLE Referrals: HARLEY BOLDEN PA-C (PCP) SUJATA MAURICIO MD Patient Instructions: Abdominal Pain Additional Instructions: Continue all your home medications including your Protonix on a daily basis Follow-up with Dr. Parks this week for further evaluation and management of your abdominal pain Return to the emergency department should your pain localized to the right lower quadrant, you develop a fever, or you develop chest pain. Attending Signature I have participated in the care of this patient and I have reviewed and agree with all pertinent clinical information above including history, exam, and recommendations. (ROXY CEDEÑO DO) RAMA ALLEN APRN December 03, 2021 09:50 ROXY CEDEÑO DO December 04, 2021 05:51
[2021-12-03] MEDS ORDERED: KETOROLAC 15 MG/ML VIAL. IVP ONE (10:00)
[2021-12-03] MEDS ORDERED: IV NORMAL SALINE 1000ML BAG 1,000 ML IV ONE (10:00)
[2021-12-03] MEDS ORDERED: FAMOTIDINE 20 MG/2 ML VIAL IVP ONE (10:00)
[2021-12-03] MEDS ORDERED: ONDANSETRON PF 4 MG/2 ML VIAL. IVP ONE (10:15)
[2021-12-03 10:18] LABS: BASO # 0.1 x10^3/uL (0.0-0.2); BASO % 1 % (0-3); EOS # 0.1 x10^3/uL (0.0-0.7); EOS % 1 % (0-3); HEMATOCRIT 45.3 % (39.0-53.0); HEMOGLOBIN 15.7 g/dL (13.0-17.5); LYMPH # 2.8 x10^3/uL (1.0-4.8); LYMPH % 25 % (24-48); MEAN CORPUSCULAR HEMOGLOBIN 32 pg (25-35); MEAN CORPUSCULAR HGB CONC 35 g/dL (31-37); MEAN CORPUSCULAR VOLUME 92 fL (79-100); MONO # 0.5 x10^3/uL (0.0-1.1); MONO % 5 % (0-9); NEUT # 7.5 x10^3/uL (1.8-7.7); NEUT % 68 % (31-73); PLATELET COUNT 276 x10^3/uL (140-400); RED BLOOD COUNT 4.93 x10^6/uL (4.30-5.70); RED CELL DISTRIBUTION WIDTH 13.7 % (11.5-14.5)
[2021-12-03 10:27] LABS: BACTERIA,URINE 0 /HPF (0-FEW); RBC,URINE 0 /HPF (0-2); WBC,URINE 0 /HPF (0-4)
[2021-12-03 10:31] LABS: CALCIUM 8.8 mg/dL (8.5-10.1); CREATININE 1.1 mg/dL (0.7-1.3)
[2021-12-03 10:37] LABS: ALBUMIN 3.6 g/dL (3.4-5.0); ALBUMIN/GLOBULIN RATIO 1.1 (1.0-1.7); TOTAL BILIRUBIN 0.4 mg/dL (0.2-1.0)
--- NOTE | 2021-12-03 11:08 | RAD ---
US ABDOMEN LIMITED History: Reason: epigastric pain / Spl. Instructions: / History: Comparison: None. Technique: Transabdominal ultrasound images are obtained of the right upper quadrant. Findings: Liver is increased in echogenicity. Right hepatic lobe measures 19.9 cm. Portal flow is hepatopedal. Small polyps or adherent stones within the posterior gallbladder wall largest measures 0.4 cm. No gal lbladder wall thickening or pericholecystic fluid. Common bile duct measures 3 mm in diameter. Visualized pancreas not well seen due to overlying structures. The right kidney measures 13.8 x 4.5 x 5.4 cm. No hydronephrosis. Heart and IVC not well seen due to overlying structures. IMPRESSION: 1. Hepatomegaly with increased echotexture, may indicate steatosis. 2. Small gallbladder polyps or adherent stones. Electronically signed by: Louie Tucker DO (12/03/2021 11:05 AM) [id number]
[2021-12-03 11:46] VITALS: BP 135/67
[2021-12-04] MEDS ORDERED: PANT40TA77 PO (18:25)
[2021-12-04] MEDS ORDERED: TRAM50TA PO (18:28)
== END 2021-12-03 11:50 | disposition home or self-care (01) ==
LOC: ER 09:28
DX: R10.84 Generalized abdominal pain (principal); J44.9 Chronic obstructive pulmonary disease, unspecified; E11.9 Type 2 diabetes mellitus without complications; E78.00 Pure hypercholesterolemia, unspecified; I10 Essential (primary) hypertension; I25.2 Old myocardial infarction; F17.200 Nicotine dependence, unspecified, uncomplicated
CPT/HCPCS: 36415; 76705; 80053; 81001; 83690; 85025; 96361; 96374; 96375; 99284; J1885; J2405; J3490; J7030

== ENCOUNTER 2021-12-04 15:54 | Emergency (ER) | payer OTHER ==
[~2021-12-04] VITALS: Ht 180.3 cm; Wt 130.5 kg
[2021-12-04] MEDS ORDERED: IV RINGERS,LACTATED 1000ML 1,000 ML IV SCH (16:30)
[2021-12-04] MEDS ORDERED: KETOROLAC 30 MG/ML VIAL. IVP ONE (16:30)
--- NOTE | 2021-12-04 17:03 | PHYS DOC ---
Past Medical History Past Medical History: Asthma, COPD, Diabetes-Type II, High Cholesterol, H ypertension, [place], Pancreatitis, Pneumonia Additional Past Medical Histor: PE, SEPSIS Past Surgical History: Gastric Bypass, Other Additional Past Surgical Histo: BILATERAL SHOULDER,CARDIAC CATH Smoking Status: Current Every Day Smoker Alcohol Use: None Drug Use: None General Adult EDM: Chief Complaint: ABDOMINAL PAIN HPI: HPI: Patient is a 51 year old male who presents with epigastric pain. Patient was evaluated yesterday in the emergency department for right upper quadrant/epigastric pain. At that time, he stated he had had pain for 5 days and had an outpatient right upper quadrant ultrasound scheduled for December 18. He states his pain was unbearable, and so he could not wait. He was advised by Dr. Yuan to present to the ER for his severe abdominal pain. Evaluation yesterday did not reveal any pathology requiring urgent/emergent attention. Patient returns today with worsening abdominal pain and associated nausea. Patient states he is unable to vomit status post bariatric surgery. Patient states that he was constipated for a few days, but the last 3 days has had regular bowel movements. He denies fever, chills, generalized weakness, bloody stool. Review of Systems: Review of Systems: Constitutional: Denies fever, chills or generalized weakness Eyes: Denies change in visual acuity, visual field deficits or discharge HENT: Denies ear pain, nasal congestion or sore throat Respiratory: Denies cough or shortness of breath Cardiovascular: Denies chest pain, palpitations or edema GI: See HPI : Denies dysuria or hematuria Musculoskeletal: Denies back pain or joint pain Integument: Denies rash or other skin lesion Neurologic: Denies headache, focal weakness or sensory changes Heart Score: C/O Chest Pain: No Current Medications: Current Medications Medications (Trade) Dose Ordered Sig/Darrius Route PRN Reason Start Time Stop Time Status Last Admin Dose Admin Ringer's Solution 1,000 ml @ 1,000 mls/hr Q1H IV 12/04/21 16:30 12/04/21 17:29 DC 12/04/21 16:30 Ketorolac Tromethamine (Toradol 30mg Vial) 15 mg 1X ONCE IVP 12/04/21 16:30 12/04/21 16:33 DC 12/04/21 16:47 Morphine Sulfate (Morphine Sulfate) 4 mg 1X ONCE IVP 12/04/21 18:00 12/04/21 18:01 DC 12/04/21 18:02 Allergies: Allergies: Allergies Coded Allergies Type Severity Reaction Last Updated Verified No Known Drug Allergies 12/03/21 No Physical Exam: PE: Constitutional: Obese, no acute distress, non-toxic appearance. HENT: Normocephalic, atraumatic, bilateral external ears normal, nose normal. Eyes: EOMI, conjunctiva normal, no discharge. Neck: Normal range of motion, no stridor. Thorax: No chest wall tenderness, equal thoracic expansion, no increased work of breathing. Abdomen: Protuberant, soft, mild epigastric tenderness without rebound or guarding, no peritoneal signs, no masses, no pulsatile masses. Skin: Warm, dry, no erythema, no rash. Extremities: No tenderness, no cyanosis, no clubbing, ROM intact, no edema. Neurologic: Alert and oriented x4, normal motor function, normal sensory function, no focal deficits noted. Current Patient Data: Labs: Laboratory Tests Test 12/04/21 16:58 12/04/21 17:25 White Blood Count 10.0 x10^3/uL (4.0-11.0) Red Blood Count 4.46 x10^6/uL (4.30-5.70) Hemoglobin 14.6 g/dL (13.0-17.5) Hematocrit 40.9 % (39.0-53.0) Mean Corpuscular Volume 92 fL (79-100) Mean Corpuscular Hemoglobin 33 pg (25-35) Mean Corpuscular Hemoglobin Concent 36 g/dL (31-37) Red Cell Distribution Width 13.6 % (11.5-14.5) Platelet Count 246 x10^3/uL (140-400) Neutrophils (%) (Auto) 64 % (31-73) Lymphocytes (%) (Auto) 30 % (24-48) Monocytes (%) (Auto) 5 % (0-9) Eosinophils (%) (Auto) 1 % (0-3) Basophils (%) (Auto) 1 % (0-3) Neutrophils # (Auto) 6.4 x10^3/uL (1.8-7.7) Lymphocytes # (Auto) 3.0 x10^3/uL (1.0-4.8) Monocytes # (Auto) 0.5 x10^3/uL (0.0-1.1) Eosinophils # (Auto) 0.1 x10^3/uL (0.0-0.7) Basophils # (Auto) 0.1 x10^3/uL (0.0-0.2) Sodium Level 140 mmol/L (136-145) Potassium Level 3.6 mmol/L (3.5-5.1) Chloride Level 105 mmol/L (98-107) Carbon Dioxide Level 25 mmol/L (21-32) Anion Gap 10 (6-14) Blood Urea Nitrogen 9 mg/dL (8-26) Creatinine 1.1 mg/dL (0.7-1.3) Estimated GFR (Cockcroft-Gault) 70.0 BUN/Creatinine Ratio 8 (6-20) Glucose Level 108 mg/dL (70-99) Calcium Level 8.3 mg/dL (8.5-10.1) Total Bilirubin 0.5 mg/dL (0.2-1.0) Aspartate Amino Transf (AST/SGOT) 13 U/L (15-37) Alanine Aminotransferase (ALT/SGPT) 19 U/L (16-63) Alkaline Phosphatase 78 U/L (46-116) Total Protein 6.8 g/dL (6.4-8.2) Albumin 3.2 g/dL (3.4-5.0) Albumin/Globulin Ratio 0.9 (1.0-1.7) Lipase 47 U/L (73-393) Urine Collection Type Unknown Urine Color (Auto) Light yellow Urine Turbidity Clear Urine pH (Auto) 5.5 (<5.0-8.0) Urine Specific [place] 1.018 (1.000-1.030) Urine Protein (Auto) Negative mg/dL (Negative) Urine Glucose (Auto)(UA) Negative mg/dL (Negative) Urine Ketones (Auto) Trace mg/dL (Negative) Urine Blood (Auto) Negative (Negative) Urine Nitrite Negative (Negative) Urine Bilirubin (Auto) Negative (Negative) Urine Urobilinogen (Auto) Normal mg/dL (Normal) Urine Leukocyte Esterase (Auto) Negative (Negative) Urine RBC 0 /HPF (0-2) Urine WBC 0 /HPF (0-4) Urine Bacteria 0 /HPF (0-FEW) Vital Signs: Vital Signs Date Time Temp Pulse Resp B/P (MAP) Pulse Ox O2 Delivery O2 Flow Rate FiO2 12/04/21 18:35 76 18 147/90 (109) 99 Room Air 12/04/21 18:02 18 100 12/04/21 17:06 69 18 152/84 (106) 100 Room Air 12/04/21 16:36 69 18 155/92 (113) 99 Room Air 12/04/21 15:55 97.7 88 18 179/112 (134) 98 Room Air 97.7 Radiology/Procedures: Radiology/Procedures: PROCEDURE: CT ABDOMEN PELVIS WO CONTRAST Exam: CT of abdomen and pelvis without contrast INDICATION: Abdominal pain, right upper quadrant TECHNIQUE: Sequential axial images through the abdomen and pelvis obtained without IV contrast. Sagittal and coronal reformatted images were reconstructed from the axial data and reviewed. Exposure: One or more of the following in the visualized dose reduction techniques were utilized for this examination: 1. Automated exposure control 2. Adjustment of the MA and/or KV according to patient size 3. Use of iterative of reconstructive technique Comparisons: Ultrasound same day FINDINGS: Heart size is normal. No pericardial effusion. Visualized lung bases are clear. No pleural effusion. Evaluation of solid organs limited secondary to noncontrast technique. Liver, spleen, pancreas and adrenals are unremarkable. Gallbladder is partially distended and not well evaluated. No perinephric inflammation or hydronephrosis. No renal or ureteral calculi are identified. Bladder is decompressed not well evaluated. Prostate is not enlarged. Moderate amount of stool is noted throughout the colon. Appendix is normal. Postoperative changes at the stomach are noted. No free intra-abdominal air or fluid. No obstruction. Abdominal aorta has normal course and caliber. No enlarged intra-abdominal lymph nodes are identified. No suspicious osseous lesions or acute fractures. IMPRESSION: No acute process identified within the abdomen or pelvis Electronically signed by: Johnny Stafford MD (12/04/2021 6:14 PM) [facility] Course & Med Decision Making: Course & Med Decision Making Pertinent Labs and Imaging studies reviewed. (See chart for details) Patient is a 51-year-old male who returns to the emergency department after having an evaluation for similar pain yesterday. Work-up today will include an abdominal CT, as yesterday right upper quadrant ultrasound was negative. Work-up today is unremarkable. Patient's pain was treated and he was instructed to follow-up with gastroenterology regarding chronic epigastric pain. Return precautions were provided. Patient understands and is agreeable to discharge plan. Dragon Disclaimer: Dragon Disclaimer: This chart was dictated in whole or in part using Voice Recognition software in a busy, high-work load, and often noisy Emergency Department environment. It may contain unintended and wholly unrecognized errors or omissions. Departure Departure Impression: Primary Impression: Epigastric abdominal pain Additional Impression: Nausea without vomiting Disposition: 01 HOME / SELF CARE / HOMELESS Condition: GOOD Referrals: KEIKO DIAZ MD (PCP) SUJATA MAURICIO MD Patient Instructions: Abdominal Pain, [id number] Additional Instructions: You will need to follow up with either your prop sawyer or establish care with a new prop sawyer to further evaluate and manage your abdominal pain. Your workup in the emergency department today did not reveal any conditions requiring inpatient admission or surgical intervention. Please follow up with Drs. Diaz or Lissy as well. Return for any return of, worsening or new symptoms. EMERGENCY DEPARTMENT GENERAL DISCHARGE INSTRUCTIONS Thank you for coming to [facility] Emergency Department (ED) today and trusting us with you care. We trust that you had a positive experience in our Emergency Department. If you wish to speak to the department management, you may call the director at . YOUR FOLLOW UP INSTRUCTIONS ARE FOLLOWS: 1. Follow up with your primary care doctor. If you do not have a primary doctor, please ask for a resource list of physicians or clinics that may be able to assist you with follow up care. 2. The emergency provider has interpreted your imaging studies, if any were ordered. The radiology human resources services specialist also reviewed them. If there is a change in the findings, you will be notified in 48 hours when at all possible. 3. If a lab test or culture has been done, your results will be reviewed and you will be notified if you need a change in treatment. 4. Follow instructions verbalized to you and refer to the printouts if needed. ADDITIONAL INSTRUCTIONS AND INFORMATION: 1. Your care today has been supervised by a physician who is specially trained in emergency care. Many problems require more than one evaluation for a complete diagnosis and treatment. We recommend that you schedule your follow up appointment as recommended to ensure complete treatment of you illness or injury. If you are unable to obtain follow up care and continue to have a problem, or if your condition worsens, we recommend that you return to the ED. 2. We are not able to safely determine your condition over the phone nor are we able to give sound medical advice over the phone. For these safety reasons, if you call for medical advice we will ask you to come to the ED for further evaluation. 3. If you have any questions regarding these discharge instructions please call the ED at . SAFETY INFORMATION: In the interest of safety, wellness, and injury prevention; we encourage you to wear your seat belt, if you smoke; quite smoking, and we encourage family to use a protective helmet for bicycling and other sporting events that present an in creased risk for head injury. IF YOUR SYMPTOMS WORSEN OR NEW SYMPTOMS DEVELOP, OR YOU HAVE CONCERNS ABOUT YOUR CONDITION; OR IF YOUR CONDITION WORSENS WHILE YOU ARE WAITING FOR YOUR FOLLOW UP APPOINTMENT; EITHER CONTACT YOUR PRIMARY CARE DOCTOR, THE PHYSICIAN WHOSE NAME AND NUMBER YOU WERE GIVEN, OR RETURN TO THE ED IMMEDIATELY. Scripts Tramadol Hcl (TRAMADOL HCL) 50 Mg Tablet 50 MG PO Q6HRS PRN for PAIN, #20 TAB 0 Refills Prov: SAVAGE COY 12/04/21 Pantoprazole Sodium (PANTOPRAZOLE SODIUM ) 40 Mg Tablet. 40 MG PO BID AC for GERD, #30 TAB Prov: SAVAGE COY 12/04/21 SAVAGE COY December 04, 2021 17:03
[2021-12-04 17:09] LABS: BASO # 0.1 x10^3/uL (0.0-0.2); BASO % 1 % (0-3); EOS # 0.1 x10^3/uL (0.0-0.7); EOS % 1 % (0-3); HEMATOCRIT 40.9 % (39.0-53.0); HEMOGLOBIN 14.6 g/dL (13.0-17.5); LYMPH % 30 % (24-48); MEAN CORPUSCULAR HEMOGLOBIN 33 pg (25-35); MEAN CORPUSCULAR HGB CONC 36 g/dL (31-37); MEAN CORPUSCULAR VOLUME 92 fL (79-100); MONO # 0.5 x10^3/uL (0.0-1.1); MONO % 5 % (0-9); NEUT # 6.4 x10^3/uL (1.8-7.7); NEUT % 64 % (31-73); PLATELET COUNT 246 x10^3/uL (140-400); RED BLOOD COUNT 4.46 x10^6/uL (4.30-5.70); RED CELL DISTRIBUTION WIDTH 13.6 % (11.5-14.5)
[2021-12-04 17:33] LABS: CALCIUM 8.3 mg/dL (8.5-10.1); CREATININE 1.1 mg/dL (0.7-1.3); POTASSIUM 3.6 mmol/L (3.5-5.1)
[2021-12-04 17:39] LABS: BACTERIA,URINE 0 /HPF (0-FEW); RBC,URINE 0 /HPF (0-2); WBC,URINE 0 /HPF (0-4)
[2021-12-04 17:40] LABS: ALBUMIN 3.2 g/dL (3.4-5.0); ALBUMIN/GLOBULIN RATIO 0.9 (1.0-1.7); TOTAL BILIRUBIN 0.5 mg/dL (0.2-1.0); TOTAL PROTEIN 6.8 g/dL (6.4-8.2)
[2021-12-04] MEDS ORDERED: MORPHINE SULFATE 4 MG/ML INJ. IVP ONE (18:00)
--- NOTE | 2021-12-04 18:16 | RAD ---
Exam: CT of abdomen and pelvis without contrast INDICATION: Abdominal pain, right upper quadrant TECHNIQUE: Sequential axial images through the abdomen and pelvis obtained without IV contrast. Sagit carlee and coronal reformatted images were reconstructed from the axial data and reviewed. Exposure: One or more of the following in the visualized dose reduction techniques were utilized for this examination: 1. Automated exposure control 2. Adjustment of the MA and/or KV according to patient size 3. Use of iterative of reconstructive technique Comparisons: Ultrasound same day FINDINGS: Heart size is normal. No pericardial effusion. Visualized lung bases are clear. No pleural effusion. Evaluation of solid organs limited secondary to noncontrast technique. Liver, spleen, pancreas and adrenals are unremarkable. Gallbladder is partially distended and not wel l evaluated. No perinephric inflammation or hydronephrosis. No renal or ureteral calculi are identified. Bladder is decompressed not well evaluated. Prostate is not enlarged. Moderate amount of stool is noted throughout the colon. Appendix is normal. Postoperative changes at the stomach are noted. No free intra-abdominal air or fluid. No obstruction. Abdominal aorta has normal course and caliber. No enlarged intra-abdominal lymph nodes are identified. No suspicious osseous lesions or acute fractures. IMPRESSION: No acute process identified within the abdomen or pelvis Electronically signed by: Johnny Stafford MD (12/04/2021 6:14 PM) [facility]
[2021-12-04] MEDS ORDERED: PANT40TA77 PO (18:25)
[2021-12-04] MEDS ORDERED: TRAM50TA PO (18:28)
[2021-12-04 18:35] VITALS: BP 147/90
== END 2021-12-04 18:39 | disposition home or self-care (01) ==
LOC: ER 15:54
DX: R10.13 Epigastric pain (principal); R11.0 Nausea; J44.9 Chronic obstructive pulmonary disease, unspecified; E78.00 Pure hypercholesterolemia, unspecified; I10 Essential (primary) hypertension; I25.2 Old myocardial infarction; F17.200 Nicotine dependence, unspecified, uncomplicated; Z98.84 Bariatric surgery status
CPT/HCPCS: 36415; 74176; 80053; 81001; 83690; 85025; 96361; 96374; 96375; 99285; J1885; J2270; J7120